=== PATIENT | male | born 1940 | race Caucasian/White ===

== ENCOUNTER 2019-11-13 14:19 | Inpatient (IN) | payer MEDICARE, OTHER ==
[~2019-11-13] VITALS: Ht 162.6 cm; Wt 77.1 kg
[~2019-11-13 14:19] MED LIST: AMLO5TAB4 PO; ATOR20TA PO; CARV25TA2 PO; OMEP20TA5 PO; PRAV20TA4 PO; RAMI5CAP66 PO
--- NOTE | 2019-11-13 14:19 | NUR ---
PT BIBRA FROM HOME C/O ALTERED MENTAL STATUS "UNABLE TO SPEAK TO THE FAMILY" PT IS AAOX2, NOT IN RESPIRATORY DISTRESS, HOOKED TO GLASS BLOWING INSTRUCTOR, KEPT RESTED AND COMFORTABLE. WILL CONTINUE TO MONITOR.
--- NOTE | 2019-11-13 14:37 | NUR ---
IV LINE ESTABLISHED BLOOD DRAWN AND SENT TO LAB.
--- NOTE | 2019-11-13 14:38 | NUR ---
SEEN AND EXAMINED BY DR. AMIN.
--- NOTE | 2019-11-13 14:39 | NUR ---
Patient transported to CT via gurney, accompanied by Weston RN.
[2019-11-13] MEDS ORDERED: IOHEXOL-350 100 ML VIAL IV ONE (14:40)
[2019-11-13] MEDS ORDERED: IV NS 0.9% 250 ML IV ONE ×2 (14:40→14:54)
[2019-11-13] MEDS ORDERED: BUME2TAB7 PO (14:48)
[2019-11-13] MEDS ORDERED: LINA145C PO (14:48)
[2019-11-13] MEDS ORDERED: TAMS-12 PO (14:48)
[2019-11-13] MEDS ORDERED: HYDR-4076 PO (14:48)
[2019-11-13] MEDS ORDERED: OMEP40CA13 PO (14:48)
[2019-11-13] MEDS ORDERED: ATOR40TA PO (14:48)
[2019-11-13] MEDS ORDERED: MEMA1CAP3 PO (14:48)
[2019-11-13] MEDS ORDERED: DOCU250C14 PO (14:48)
[2019-11-13] MEDS ORDERED: WARF-58 PO (14:48)
[2019-11-13] MEDS ORDERED: IOHEXOL-300 100 ML VIAL IV ONE (14:49)
[2019-11-13 14:53] LABS: BASOPHILS # (AUTO) 0.1 /CMM (0.0-0.2); BASOPHILS % (AUTO) 0.5 % (0.0-2.0); EOSINOPHILS % (AUTO) 1.6 % (0.0-6.0); HEMATOCRIT 44 % (39-51); HEMOGLOBIN 13.9 g/dL (13.5-17.5); LYMPHOCYTES # (AUTO) 1.2 /CMM (0.8-4.8); LYMPHOCYTES % (AUTO) 11.2 % (20.0-44.0); MEAN CORPUSCULAR HGB CONC 32 g/dl (31.0-36.0); MEAN CORPUSCULAR VOLUME 79 fL (80-96); MONOCYTES # (AUTO) 1.1 /CMM (0.1-1.30); MONOCYTES % (AUTO) 10.4 % (2.0-12.0); NEUTROPHILS # (AUTO) 8.2 /CMM (1.8-8.9); NEUTROPHILS % (AUTO) 76.3 % (43.0-81.0); PLATELET COUNT (AUTO) 198 /CMM (150-450); WHITE BLOOD COUNT (AUTO) 10.7 K/uL (4.3-11.0)
[2019-11-13 14:56] LABS: CALCIUM, SERUM 8.5 mg/dL (8.5-10.1); CARBON DIOXIDE 27 mmol/L (21-32); CHLORIDE 103 mmol/L (98-107); CREATININE 1.7 mg/dL (0.6-1.3); GLUCOSE 122 mg/dL (74-106); POTASSIUM 3.6 mmol/L (3.5-5.1); SODIUM SERUM 139 mmol/L (136-145); UREA NITROGEN, BLOOD 31 mg/dL (7-18)
--- NOTE | 2019-11-13 15:01 | NUR ---
Patient back to ER Rm [address] via [facility].
[2019-11-13 15:59] LABS: CHOLESTEROL 221 mg/dL (<200); HDL CHOLESTEROL 27 mg/dL (40-60); LDL 155 mg/dL (0-99); TRIGLYCERIDES 159 mg/dL (30-150)
--- NOTE | 2019-11-13 16:39 | NUR ---
panel on-call paged
--- NOTE | 2019-11-13 16:45 | NUR ---
CALLED [facility], PAGED HELEN TRISTAN
[2019-11-13] MEDS ORDERED: IV NS 0.9% 1,000 ML IV ONE (17:00)
[2019-11-13] MEDS ORDERED: ASPIRIN 81 MG TAB.CHEW PO ONE (17:00)
[2019-11-13] MEDS ORDERED: ASPIRIN 300 MG/SUPP.RECT RC ONE ×2 (17:30)
[2019-11-13] MEDS ORDERED: ASPIRIN 325 MG TABLET PO ONE (17:30)
--- NOTE | 2019-11-13 17:50 | NUR ---
REPORT GIVEN TO OGPAL GARZA FOR KRISTINA.
--- NOTE | 2019-11-13 18:28 | NUR ---
RN ADMITTING NOTE Patient arrived on unit via gurney. A/O x1, presents with shallow pursed lip breathing at this time, patient put on 2L NC. Vital signs: T 98.0F BP 123/77 HR 83 SpO2 97% on 2L NC RR 22-24. Tele monitor SR with BBB and PVCs. Patient kept NPO due to confusion and failed swallow eval per BAILING MACHINE OPERATOR Demetri. Bed is in lowest position, side rails x3 in upright position, call light is within reach, fall safety and aspiration precautions enforced. Will endorse to night club manager for admitting process.
[2019-11-13 18:30] VITALS: BP 123/77
[2019-11-13 20:00] VITALS: BP_SYST 120; BP_SYST 135; BP_DIAS 79; BP_DIAS 80
--- NOTE | 2019-11-13 20:00 | NUR ---
ZIG ZAG STITCHER OPENING NOTES RECEIVED PATIENT FROM ER FOR ADMISSION, ALERT AND ORIENTED X 1. BREATHING REGULAR AND UNLABORED ON OXYGEN AT 2L/MIN VIA NASAL CANNULA. RIGHT AC G18 IV LINE INTACT AND PATENT, FLUSHING WELL WITH NO BLEEDING OR S/S OF INFILTRATION NOTED. ATTACHED TO RAIL ENGINEER WITH NSR AT 80bpm. LEFT UPPER CHEST PACEMAKER VISIBLE ON THE SKIN. BODY ASSESSMENT DONE, SEEN WITH SACRAL REDNESS AND PERINEAL WITH OPEN WOUNDS ON POSTERIOR AREA OF THE SCROTUM. PHOTO TAKEN, KEPT IN CHART. NIHSS STROKE SCALE DONE. NO S/S OF PAIN/DISCOMFORT OBSERVED AT THIS TIME. BED LOW AND LOCKED ON SEMI FOWLERS POSITION. CALL LIGHT IN REACH. WILL CONTINUE TO MONITOR.
[2019-11-13 20:16] LABS: BASOPHILS # (AUTO) 0.1 /CMM (0.0-0.2); BASOPHILS % (AUTO) 0.5 % (0.0-2.0); EOSINOPHILS % (AUTO) 2.2 % (0.0-6.0); HEMATOCRIT 41 % (39-51); HEMOGLOBIN 13.2 g/dL (13.5-17.5); LYMPHOCYTES # (AUTO) 1.7 /CMM (0.8-4.8); LYMPHOCYTES % (AUTO) 15.5 % (20.0-44.0); MEAN CORPUSCULAR HGB CONC 32 g/dl (31.0-36.0); MEAN CORPUSCULAR VOLUME 78 fL (80-96); MONOCYTES # (AUTO) 1.2 /CMM (0.1-1.30); MONOCYTES % (AUTO) 10.7 % (2.0-12.0); NEUTROPHILS % (AUTO) 71.1 % (43.0-81.0); PLATELET COUNT (AUTO) 180 /CMM (150-450); RED BLOOD CELL COUNT(AUTO) 5.24 MIL/uL (4.5-6.0); WHITE BLOOD COUNT (AUTO) 11.2 K/uL (4.3-11.0)
[2019-11-13 20:18] LABS: CALCIUM, SERUM 8.1 mg/dL (8.5-10.1); CREATININE 1.3 mg/dL (0.6-1.3); POTASSIUM 3.6 mmol/L (3.5-5.1)
[2019-11-13 20:30] LABS: ALBUMIN 2.6 g/dL (3.4-5.0); THYROID STIMULATING HORMONE 1.247 uIU/mL (0.358-3.74); TOTAL PROTEIN, SERUM 6.6 g/dL (6.4-8.2)
--- NOTE | 2019-11-13 21:00 | NUR ---
PIER RUNNER NOTES NURSING SWALLOW EVALUATION DONE AT BEDSIDE. PATIENT ABLE TO TOLERATE DRINKING 60CC REGULAR/THIN CONSISTENCY LIQUID WITHOUT CHOKING OR COUGHING. ALSO ABLE TO EAT APPLE SAUCE WITHOUT DIFFICULTY. RESPONDING VERBALLY (DELAYED) ON YAKUT LANGUAGE
--- NOTE | 2019-11-13 21:03 | NUR ---
INITIAL ECHOCARDIOGRAM SHOWED EF 20%~. ADVISED RN OF PRELIMINARY FINDING.
[2019-11-13] MEDS ORDERED: BLOOD SUGAR DIAGNOSTIC 1 EACH STRIP IN SCH (22:00)
[2019-11-13] MEDS ORDERED: SIMVASTATIN 40 MG TABLET PO SCH (22:00)
--- NOTE | 2019-11-13 22:00 | NUR ---
ARCHITECT NAVAL NOTES HERNANDEZ CATH INSERTED DRAINING WELL WITH CLOUDY THAIS COLORED URINE. DVT PUMP ON.
[2019-11-13] MEDS: ATORVASTATIN 40 MG TABLET PO SCH (22:37)
[2019-11-13] MEDS: TAMSULOSIN 0.4 MG CAP.SR.24H PO SCH (22:37)
[2019-11-13] MEDS: DONEPEZIL 5 MG TABLET PO SCH (22:37)
[2019-11-13] MEDS: HEPARIN SODIUM, PORCINE 5000 UNITS/1 ML VIAL SQ SCH (22:38)
[2019-11-14] VITALS: BP 127/81
--- NOTE | 2019-11-14 | NUR ---
NETWORKER NOTES ECHO CARDIO AND CAROTID US DONE, RESULTS RELAYED TO PRESTON GUTIERREZ WITH NO FURTHER ORDERS.
[2019-11-14] MEDS: BLOOD SUGAR DIAGNOSTIC 1 EACH STRIP IN SCH ×4 (00:15→16:23)
[2019-11-14 04:07] VITALS: BP 144/85
[2019-11-14] MEDS: HEPARIN SODIUM, PORCINE 5000 UNITS/1 ML VIAL SQ SCH ×3 (05:13→20:15)
--- NOTE | 2019-11-14 06:50 | NUR ---
SUPERVISOR PARTIAL DENTURE DEPARTMENT CLOSING NOTES PATIENT IN BED, ALERT AND ORIENTED X 1. AFEBRILE WITH NO S/S OF DISTRESS OBSERVED. RIGHT AC G18 IV LINE INTACT AND PATENT, FLUSHING WELL. MAINTAINED ON CARDIAC MONITORING WITH NSR WITH PVC's AND BBB AT 87bpm. NO S/S OF PAIN/DISCOMFORT SEEN THE WHOLE SHIFT. BLOOD SUGAR OF 100mg/dl NOTED. BED LOW AND LOCKED ON SEMI FOWLERS POSITION. CALL LIGHT IN REACH. WILL ENDORSE TO MORNING SHIFT FOR KRISTINA.
[2019-11-14] MEDS ORDERED: PANTOPRAZOLE 40 MG TABLET.DR PO SCH (07:30)
[2019-11-14 08:00] VITALS: BP 125/90
--- NOTE | 2019-11-14 08:00 | NUR ---
RN NOTES RECEIVED PATIENT IN THE BED CONFUSED, HARD TO FOLLOW DIRECTION, V/S WNL. NO ACUTE RESPIRATORY DISTRESS, F/C DRAINING DARK YELLOW OUTPUT, IV ACCESS ON RIGHT AC AREA INTACT.ASSIST TURN AND REPOSTION, ADMINISTERED SCHEDULED MEDICATION CRUSHED AND MIXED WITH APPLE SAUCE. PATIENT HAS HARD OF HEARING. SAFETY PRECAUTION MAINTAINED ALL THE TIME.
[2019-11-14 08:16] LABS: BASOPHILS # (AUTO) 0.1 /CMM (0.0-0.2); BASOPHILS % (AUTO) 0.7 % (0.0-2.0); EOSINOPHILS % (AUTO) 3.4 % (0.0-6.0); HEMATOCRIT 42 % (39-51); HEMOGLOBIN 13.2 g/dL (13.5-17.5); LYMPHOCYTES # (AUTO) 1.5 /CMM (0.8-4.8); LYMPHOCYTES % (AUTO) 13.3 % (20.0-44.0); MEAN CORPUSCULAR HGB CONC 32 g/dl (31.0-36.0); MEAN CORPUSCULAR VOLUME 79 fL (80-96); MONOCYTES # (AUTO) 1.2 /CMM (0.1-1.30); NEUTROPHILS # (AUTO) 8.1 /CMM (1.8-8.9); NEUTROPHILS % (AUTO) 71.6 % (43.0-81.0); PLATELET COUNT (AUTO) 192 /CMM (150-450); RED BLOOD CELL COUNT(AUTO) 5.31 MIL/uL (4.5-6.0); WHITE BLOOD COUNT (AUTO) 11.2 K/uL (4.3-11.0)
[2019-11-14 08:26] LABS: CALCIUM, SERUM 8.3 mg/dL (8.5-10.1); POTASSIUM 3.8 mmol/L (3.5-5.1)
[2019-11-14] MEDS ORDERED: AMLODIPINE BESYLATE 5 MG TABLET PO SCH (09:00)
[2019-11-14] MEDS ORDERED: BUMETANIDE (1 MG) 1 MG TABLET PO SCH (09:00)
[2019-11-14] MEDS ORDERED: WARFARIN SODIUM 5 MG TABLET PO SCH (09:00)
[2019-11-14] MEDS ORDERED: RAMIPRIL 5 MG CAPSULE PO SCH (09:00)
--- NOTE | 2019-11-14 09:05 | NUR ---
WOUND CARE CONSULT: PT PRESENTS WITH DEEP RED INTACT DEEP TISSUE INJURY TO SACRAL AREA, RASH WITH OPEN SKIN TO SCROTUM, PRESENT ON ADMISSION. RECOMMENDATIONS MADE FOR SKIN PROTECTION AND WOUND CARE. DISCUSSED WITH NURSING STAFF. IN AGREEMENT WITH PLAN OF CARE. CURRENT SERA SCORE IS 14. MAYR ANGELA NOTED. Addendum: 11/14/19 at 0906 by RADHA VALENZUELA WNDNU Amended: Links added.
[2019-11-14] MEDS ORDERED: Z GUARD REMEDY 2 OZ OINT TP PRN (09:30)
[2019-11-14] MEDS: ASPIRIN EC 81 MG TABLET.DR PO SCH (10:28)
[2019-11-14] MEDS: DOCUSATE SODIUM 250 MG CAPSULE PO SCH ×2 (10:28→16:22)
[2019-11-14] MEDS: MEMANTINE HCL 5 MG TABLET PO SCH ×2 (10:28→16:22)
[2019-11-14] MEDS: hydrALAZINE HCL 25 MG TABLET PO SCH ×2 (10:29→16:20)
[2019-11-14] MEDS: PANTOPRAZOLE 40 MG TABLET.DR PO SCH (10:30)
[2019-11-14] MEDS: Z GUARD REMEDY 2 OZ OINT TP SCH (10:31)
[2019-11-14] MEDS: CARVEDILOL 12.5 MG TABLET PO SCH ×2 (10:32→16:23)
--- NOTE | 2019-11-14 12:30 | NUR ---
RN NOTES BS-148 MG/DL NO COVERAGE, PATIENT CONFUSED, DEMANDED, TRIED TO REMOVE HERNANDEZ CATHETER, AND IV ACCESS, ADMINISTERED SCHEDULED MEDICATION. SAFETY PRECAUTION MAINTAINED ALL THE TIME, PATIENT HARD OF HEARING, ON O2 2L NC, SAFETY PRECAUTION MAINTAINED ALL THE TIME.
--- NOTE | 2019-11-14 15:40 | NUR ---
RAS Consult: rehab services aide consult requested by for stroke protocol. Per MD notes, pt is an 79-year-old male who presented yesterday to the emergency department not able to give any meaningful history with inability to speak. History was basically obtained from his medication list. Patient is also altered with history of dementia. DECORATOR INSPECTOR conducted chart review and consulted with [facility] Emiliano Nunez. Per SACHIN Nunez, pt is confused and unable to participate in meaningful conversation. Pt is Kyrgyz speaking. SACHIN Nunez requested for DECORATOR INSPECTOR to contact pt's granddaughter Ivett at . RAS left a voicemail message with Ivett with a callback number.
[2019-11-14 16:00] VITALS: BP 109/66
--- NOTE | 2019-11-14 16:46 | NUR ---
Table Saw Operator: conducted chart review and was able to speak to the patient's family as he has been confused. Per MD notes, pt is an 79-year-old male who presented yesterday to the emergency department not able to give any meaningful history with inability to speak. Pippa contacted Table Saw Operator and was able to give a brief history but was unable to give all information at the time as her mother Lizzy is the primary contact. Table Saw Operator was able to obtain some information from Lizzy. Patient lives alone at [address] [place] [address] in [place], [place]. Pt's daughter goes to the home to provide IHSS. Patient's daughter reports that the pt receives approximately $915 in SSI only as his source of income. Patient has a walker and cane to assist him, only relies on it for additional support. Patient has a history of high blood pressure and had open heart surgery for a pacemaker in 2018, according to the pt's daughter. Patient has been sleeping well but has had a decrease with his hearing over the last few years and pt's daughter says that the hearing aid has not been of much help. Pt's daughter reports that he is sleeping well and has a routine of waking up at 11am every morning. This past Wednesday, November 10 pt's daughter reports that the pt was confused when she arrived to the home at 12 pm (noon). Pt's daughter does not report any other change. Pt's daughter will call nurse to learn more about pt's diagnosis and any other changes that may have occured. Table Saw Operator remains available to the patient for all needs and will follow-up with this patient when he is alert and orientated. Table Saw Operator will also remain available to family to help provide any resources.
--- NOTE | 2019-11-14 18:30 | NUR ---
rn notes PATIENT HAS NO ACUTE RESPIRATORY DISTRESS, SEEN BY GI. AND NEURO MD'S, ADMINISTERED SCHEDULED MEDICATION. ASSIST TURN AND REPOSITION Q 2 HR. ENDORSED ONCOMING NURSE FOLLOW PLAN OF CARE.
--- NOTE | 2019-11-14 19:30 | NUR ---
MS RN OPENING NOTES RECEIVED PATIENT FROM MORNING SHIFT, ALERT AND ORIENTED X 1. BREATHING REGULAR AND UNLABORED ON OXYGEN AT 2L/MIN VIA NASAL CANNULA. RIGHT AC G18 IV LINE INTACT AND PATENT, FLUSHING WELL WITH NO BLEEDING OR S/S OF INFILTRATION NOTED. NO S/S OF PAIN/DISCOMFORT OBSERVED AT THIS TIME. BED LOW AND LOCKED ON SEMI FOWLERS POSITION. CALL LIGHT IN REACH. WILL CONTINUE TO MONITOR.
[2019-11-14 20:00] VITALS: BP 96/58
[2019-11-14 20:17] VITALS: BP 96/58
[2019-11-14] MEDS: TAMSULOSIN 0.4 MG CAP.SR.24H PO SCH (21:25)
[2019-11-14] MEDS: ATORVASTATIN 40 MG TABLET PO SCH (21:25)
[2019-11-14] MEDS: DONEPEZIL 5 MG TABLET PO SCH (21:25)
[2019-11-15] MEDS: BLOOD SUGAR DIAGNOSTIC 1 EACH STRIP IN SCH ×5 (00:08→23:55)
--- NOTE | 2019-11-15 00:10 | NUR ---
MS RN NOTES BS 122mg/dl, ON INSULIN COVERAGE ORDERED. WILL CONTINUE TO MONITOR.
[2019-11-15] MEDS: HEPARIN SODIUM, PORCINE 5000 UNITS/1 ML VIAL SQ SCH (04:18)
--- NOTE | 2019-11-15 06:40 | NUR ---
MS RN CLOSING NOTES PATIENT IN BED, ALERT AND ORIENTED X 1-2. AFEBRILE WITH NO S/S OF DISTRESS OBSERVED. RIGHT AC G18 IV LINE INTACT AND PATENT, FLUSHING WELL. NO S/S OF PAIN/DISCOMFORT SEEN THE WHOLE SHIFT. BLOOD SUGAR OF 105mg/dl NOTED. BED LOW AND LOCKED ON SEMI FOWLERS POSITION. CALL LIGHT IN REACH. WILL ENDORSE TO MORNING SHIFT FOR KRISTINA.
--- NOTE | 2019-11-15 07:15 | NUR ---
ms rn received on bed, sleeping,not in any form of distress, respirations even and unlabored,no sob noted, lungs are clear,abdomen soft,positive bowel sounds,denies pain at this time,all needs attended.
[2019-11-15 08:00] VITALS: BP 115/70
--- NOTE | 2019-11-15 09:00 | NUR ---
ms rn patient does note want to eat breakfast, will give meds later.
--- NOTE | 2019-11-15 09:59 | NUR ---
Staffing Operations Manager: SW completed PHQ-9 intervention.
--- NOTE | 2019-11-15 10:00 | NUR ---
ms rn was seen by speech therapist, was able to eat w/ assist, all needs attended.
[2019-11-15] MEDS: DOCUSATE SODIUM 250 MG CAPSULE PO SCH ×2 (10:57→17:50)
[2019-11-15] MEDS: MEMANTINE HCL 5 MG TABLET PO SCH ×2 (10:57→17:51)
[2019-11-15] MEDS: PANTOPRAZOLE 40 MG TABLET.DR PO SCH (10:57)
[2019-11-15] MEDS: DONEPEZIL 5 MG TABLET PO SCH (10:58)
[2019-11-15] MEDS: ASPIRIN EC 81 MG TABLET.DR PO SCH (10:58)
[2019-11-15] MEDS: ENOXAPARIN SODIUM 80 MG/0.8 ML DISP.SYRIN SQ SCH ×2 (10:59→22:28)
--- NOTE | 2019-11-15 11:00 | NUR ---
ms rn was seen by pt, bareky stands w/ 2 max assist, bed exercises done.
[2019-11-15] MEDS: hydrALAZINE HCL 25 MG TABLET PO SCH ×2 (11:02→17:51)
[2019-11-15] MEDS: CARVEDILOL 12.5 MG TABLET PO SCH ×2 (11:03→17:51)
--- NOTE | 2019-11-15 11:30 | NUR ---
ms ash bs - 129 - no coverage given.
[2019-11-15 12:01] LABS: CALCIUM, SERUM 8.3 mg/dL (8.5-10.1); CARBON DIOXIDE 26 mmol/L (21-32); CHLORIDE 105 mmol/L (98-107); CREATININE 1.4 mg/dL (0.6-1.3); GLUCOSE 129 mg/dL (74-106); POTASSIUM 3.5 mmol/L (3.5-5.1); SODIUM SERUM 137 mmol/L (136-145); UREA NITROGEN, BLOOD 34 mg/dL (7-18)
[2019-11-15 12:17] LABS: BASOPHILS # (AUTO) 0.1 /CMM (0.0-0.2); BASOPHILS % (AUTO) 0.9 % (0.0-2.0); EOSINOPHILS % (AUTO) 6.7 % (0.0-6.0); HEMATOCRIT 43 % (39-51); HEMOGLOBIN 13.1 g/dL (13.5-17.5); LYMPHOCYTES # (AUTO) 1.5 /CMM (0.8-4.8); LYMPHOCYTES % (AUTO) 17.2 % (20.0-44.0); MEAN CORPUSCULAR HGB CONC 31 g/dl (31.0-36.0); MEAN CORPUSCULAR VOLUME 81 fL (80-96); MONOCYTES # (AUTO) 0.6 /CMM (0.1-1.30); MONOCYTES % (AUTO) 6.8 % (2.0-12.0); NEUTROPHILS % (AUTO) 68.4 % (43.0-81.0); PLATELET COUNT (AUTO) 191 /CMM (150-450); RED BLOOD CELL COUNT(AUTO) 5.22 MIL/uL (4.5-6.0); WHITE BLOOD COUNT (AUTO) 8.8 K/uL (4.3-11.0)
[2019-11-15 16:00] VITALS: BP 129/68
[2019-11-15] MEDS ORDERED: WARFARIN SODIUM 5 MG TABLET PO SCH (17:00)
[2019-11-15] MEDS: ENSURE ENLIVE CHOC 237 ML CAN PO SCH (17:00)
--- NOTE | 2019-11-15 17:00 | NUR ---
ms rn grand daughter fed patient w/ good appetite.
[2019-11-15] MEDS: Z GUARD REMEDY 2 OZ OINT TP SCH (17:52)
--- NOTE | 2019-11-15 18:00 | NUR ---
ms rn patient refused bs check,will monitor patient.
--- NOTE | 2019-11-15 19:04 | NUR ---
ms rn on bed, no distress noted.
--- NOTE | 2019-11-15 19:56 | NUR ---
MS/RN OPENING NOTE Patient awake in bed, A/O x1-2. [place] Islander speaking only. Breathing even, clear, unlabored. No signs of acute distress or SOB. Nasal cannula 2l/min. Patient denies pain at this time. Pulses 2+. No JVD. Skin warm, pink, dry appropriate for ethnicity. Redness noted in sacral region. IV site RAC 18g saline lock, patent and intact. Bed in low position, wheels locked, side rails up x2, call light within reach.
[2019-11-15 20:00] VITALS: BP 120/69
[2019-11-15] MEDS: TAMSULOSIN 0.4 MG CAP.SR.24H PO SCH (22:29)
[2019-11-15] MEDS: ATORVASTATIN 40 MG TABLET PO SCH (22:29)
[2019-11-16 00:25] VITALS: BP 120/69
--- NOTE | 2019-11-16 04:37 | NUR ---
MS/RN NOTE DC IV to left forearm d/t patient pulling out. New IV inserted to LFA 22g, saline lock. No signs of redness or infiltration. Will continue to monitor.
--- NOTE | 2019-11-16 05:57 | NUR ---
MS/RN NOTE Patient refused Accu-chek at this time. Will continue to monitor.
[2019-11-16] MEDS: BLOOD SUGAR DIAGNOSTIC 1 EACH STRIP IN SCH ×3 (05:58→18:00)
[2019-11-16] MEDS: PANTOPRAZOLE 40 MG TABLET.DR PO SCH (06:52)
--- NOTE | 2019-11-16 07:24 | NUR ---
MS/RN CLOSING NOTE Patient asleep in bed, A/O x1-2. Tajik speaking only. Breathing even, clear, unlabored. No signs of acute distress or SOB. Nasal cannula 2l/min, O2 saturation 98%. No JVD. Skin warm, pink, dry appropriate for ethnicity. Redness noted in sacral region. IV site RFA 18g saline lock, patent and intact. Bed in low position, wheels locked, side rails up x2, call light within reach.
--- NOTE | 2019-11-16 07:30 | NUR ---
MS/RN NOTE THE PATIENT IS RECEIVED IN BED. THE PATIENT IS ALERT AND ORIENTED TO SELF. DIRECTION AND REORIENTATION PROVIDED. PATIENT IS HARD OF HEARING. RECEIVING OXYGEN AT 2L/MIN VIA NASAL CANNULA. RESPIRATION REGULAR AND UNLABORED. DENIES PAIN. DENIES SOB. RAC G 18 PATENT AND SALINE LOCKED. HERNANDEZ CATH PRESENT. NO BLADDER DISTENSION NOTED. BED LOW AND LOCKED. SIDE RAILS UP X3. CALL LIGHT WITHIN REACH. WILL CONTINUE TO MONITOR.
[2019-11-16 08:00] VITALS: BP 129/74
[2019-11-16] MEDS: DOCUSATE SODIUM 250 MG CAPSULE PO SCH ×2 (09:05→17:45)
[2019-11-16] MEDS: ENOXAPARIN SODIUM 80 MG/0.8 ML DISP.SYRIN SQ SCH ×2 (09:05→21:25)
[2019-11-16] MEDS: MEMANTINE HCL 5 MG TABLET PO SCH ×2 (09:05→17:45)
[2019-11-16] MEDS: ASPIRIN EC 81 MG TABLET.DR PO SCH (09:06)
[2019-11-16] MEDS: hydrALAZINE HCL 25 MG TABLET PO SCH ×2 (09:06→17:45)
[2019-11-16] MEDS: CARVEDILOL 12.5 MG TABLET PO SCH ×2 (09:06→17:45)
[2019-11-16] MEDS: ENSURE ENLIVE CHOC 237 ML CAN PO SCH ×3 (09:07→17:00)
[2019-11-16] MEDS: Z GUARD REMEDY 2 OZ OINT TP SCH (09:16)
[2019-11-16 12:43] LABS: BASOPHILS # (AUTO) 0.1 /CMM (0.0-0.2); BASOPHILS % (AUTO) 0.7 % (0.0-2.0); EOSINOPHILS % (AUTO) 6.3 % (0.0-6.0); HEMATOCRIT 41 % (39-51); HEMOGLOBIN 12.9 g/dL (13.5-17.5); LYMPHOCYTES # (AUTO) 1.2 /CMM (0.8-4.8); LYMPHOCYTES % (AUTO) 15.1 % (20.0-44.0); MEAN CORPUSCULAR HGB CONC 31 g/dl (31.0-36.0); MEAN CORPUSCULAR VOLUME 80 fL (80-96); MONOCYTES # (AUTO) 0.7 /CMM (0.1-1.30); NEUTROPHILS # (AUTO) 5.3 /CMM (1.8-8.9); NEUTROPHILS % (AUTO) 68.9 % (43.0-81.0); PLATELET COUNT (AUTO) 224 /CMM (150-450); RED BLOOD CELL COUNT(AUTO) 5.14 MIL/uL (4.5-6.0); WHITE BLOOD COUNT (AUTO) 7.7 K/uL (4.3-11.0)
[2019-11-16 14:06] LABS: CREATININE 1.3 mg/dL (0.6-1.3); POTASSIUM 3.6 mmol/L (3.5-5.1)
[2019-11-16 14:11] LABS: CALCIUM, SERUM 8.2 mg/dL (8.5-10.1)
[2019-11-16 16:00] VITALS: BP 138/74
[2019-11-16] MEDS ORDERED: WARFARIN SODIUM 7.5 MG TABLET PO SCH (17:00)
--- NOTE | 2019-11-16 18:49 | NUR ---
MS/RN THE PATIENT IS ALERT AND ORIENTED TO SELF. DIRECTION AND REORIENTATION PROVIDED. PATIENT IS HARD OF HEARING. RECEIVING OXYGEN AT 2L/MIN VIA NASAL CANNULA. RESPIRATION REGULAR AND UNLABORED. DENIES PAIN. DENIES SOB. RAC G 18 PATENT AND SALINE LOCKED. HERNANDEZ CATH PRESENT. NO BLADDER DISTENSION NOTED. BED LOW AND LOCKED. SIDE RAILS UP X3. CALL LIGHT WITHIN REACH. WILL CONTINUE TO MONITOR.
[2019-11-16] MEDS: WARFARIN SODIUM 2.5 MG TABLET PO SCH (18:52)
--- NOTE | 2019-11-16 19:43 | NUR ---
MS RN OPENING NOTE: Patient in bed sleeping comfortably but easily arousable. Patient shows no signs of pain or discomfort at the moment. Patient on nasal canula with 2L oxygen. Patient is breathing well. No signs of SOB, breathing even and unlabored. Noted IV access on right AC, 18 g. Flushes well, patent, no redness, or infiltration. Noted Holt catheter, patent, draining clear yellow urine. Safety precaution is in place, bed is in lowest position, bed is locked, side rails x2 are up, alarm is on, and call light is within reach. Will continue to monitor.
[2019-11-16 20:00] VITALS: BP 105/57
[2019-11-16 20:33] VITALS: BP 105/57
[2019-11-16] MEDS: ATORVASTATIN 40 MG TABLET PO SCH (21:21)
[2019-11-16] MEDS: DONEPEZIL 5 MG TABLET PO SCH (21:21)
[2019-11-16] MEDS: TAMSULOSIN 0.4 MG CAP.SR.24H PO SCH (21:21)
[2019-11-17] MEDS: BLOOD SUGAR DIAGNOSTIC 1 EACH STRIP IN SCH ×4 (00:06→17:57)
[2019-11-17] MEDS: PANTOPRAZOLE 40 MG TABLET.DR PO SCH (06:37)
--- NOTE | 2019-11-17 07:13 | NUR ---
MS RN CLOSING NOTE: Patient in bed awake and alert. Patient is Anguillan speaking only. On 2L nasal canula and breathing well. No SOB, no distress. Breathing equal and unlabored. IV access on left forearm 22g. Patent, intact, no redness, or infiltration. Safety precaution in place. Bed in the lowest level, brakes are on, side rails x2 are up, alarm is on, and call light is within reach. Will endorse to next shift.
--- NOTE | 2019-11-17 07:30 | NUR ---
MS/RN NOTE THE PATIENT IS RECEIVED IN BED. THE PATIENT IS ALERT AND ORIENTED TO SELF. DIRECTION AND REORIENTATION PROVIDED. PATIENT IS HARD OF HEARING. RECEIVING OXYGEN AT 2L/MIN VIA NASAL CANNULA. RESPIRATION REGULAR AND UNLABORED. DENIES PAIN. DENIES SOB. HERNANDEZ CATH PRESENT. NO BLADDER DISTENSION NOTED. BED LOW AND LOCKED. SIDE RAILS UP X3. CALL LIGHT WITHIN REACH. WILL CONTINUE TO MONITOR
[2019-11-17 08:00] VITALS: BP 123/74
[2019-11-17] MEDS: ENSURE ENLIVE CHOC 237 ML CAN PO SCH ×2 (08:00→12:00)
[2019-11-17] MEDS: DOCUSATE SODIUM 250 MG CAPSULE PO SCH ×2 (08:48→17:53)
[2019-11-17] MEDS: ASPIRIN EC 81 MG TABLET.DR PO SCH (08:48)
[2019-11-17] MEDS: hydrALAZINE HCL 25 MG TABLET PO SCH ×2 (08:49→17:53)
[2019-11-17] MEDS: MEMANTINE HCL 5 MG TABLET PO SCH ×2 (08:49→17:53)
[2019-11-17] MEDS: CARVEDILOL 12.5 MG TABLET PO SCH ×2 (08:50→17:54)
[2019-11-17] MEDS: Z GUARD REMEDY 2 OZ OINT TP SCH (08:51)
[2019-11-17] MEDS: ENOXAPARIN SODIUM 80 MG/0.8 ML DISP.SYRIN SQ SCH ×2 (11:24→21:12)
[2019-11-17] MEDS ORDERED: ASPI-1420 PO (14:32)
[2019-11-17] MEDS ORDERED: Warfarin Sodium PO (14:32)
[2019-11-17] MEDS ORDERED: DONE5TAB7 PO (14:32)
[2019-11-17] MEDS ORDERED: ENOX80DI SQ (14:32)
[2019-11-17] MEDS ORDERED: LACT-54 PO (14:32)
[2019-11-17] MEDS ORDERED: LEVO500T23 PO (14:37)
[2019-11-17] MEDS: ENSURE ENLIVE 237 ML LIQUID (VANILLA) PO SCH (17:00)
[2019-11-17] MEDS: WARFARIN SODIUM 2.5 MG TABLET PO SCH (17:57)
--- NOTE | 2019-11-17 19:00 | NUR ---
RN MS OPENING NOTES RECEIVED PATIENT IN BED AWAKE ALERT AND ORIENTED X 1-2, ON 2 L VIA NC TOLERATING WELL, RESPIRATIONS EVEN AND UNLABORED WITH EQUAL RISE AND FALL OF CHEST, HOB ELEVATED AT 40 DEGREES ORDERED, HERNANDEZ CATHETER INTACT AND DRAINING WELL, URINE YELLOW, F/C PROPERLY ALIGNED, LEFT FA #22 G INTACT AND PATENT, NO REDNESS, NO INFILTRATION PRESENT, PATIENT REPOSITIONED, HEELS OFFLOADED, APPEARS COMFORTABLE AT THIS TIME, NO FACIAL GRIMACING, PRESENT, PATIENT REPOSITIONED ON SIDE TO OFFLOAD SACRAL AND SCROTUM AREA, SAFETY PRECAUTIONS RENDERED, LOW BED AND LOCKED, BED ALARM IN PLACE, SCDS INTACT, CALL LIGHT KEPT WITHIN REACH, REMAINS COMFORTABLE AT THIS TIME , WILL CONTINUE TO ADDRESS NEEDS.
[2019-11-17 20:00] VITALS: BP 141/78
[2019-11-17 20:02] VITALS: BP 141/78
[2019-11-17] MEDS: ATORVASTATIN 40 MG TABLET PO SCH (21:13)
[2019-11-17] MEDS: DONEPEZIL 5 MG TABLET PO SCH (21:13)
[2019-11-17] MEDS: TAMSULOSIN 0.4 MG CAP.SR.24H PO SCH (21:13)
[2019-11-18] MEDS: BLOOD SUGAR DIAGNOSTIC 1 EACH STRIP IN SCH ×3 (00:18→12:28)
--- NOTE | 2019-11-18 00:19 | NUR ---
accucheck 136
--- NOTE | 2019-11-18 05:33 | NUR ---
accu check 90
--- NOTE | 2019-11-18 06:21 | NUR ---
RN MS CLOSING NOTES RECEIVED PATIENT IN BED AWAKE ALERT AND ORIENTED X 1-2, ON 2 L VIA NC TOLERATING WELL, RESPIRATIONS EVEN AND UNLABORED WITH EQUAL RISE AND FALL OF CHEST, HOB ELEVATED AT 40 DEGREES ORDERED, HERNANDEZ CATHETER INTACT AND DRAINING WELL TOTAL OUTPUT 600ML, URINE YELLOW, F/C PROPERLY ALIGNED, LEFT FA #22 G INTACT AND PATENT, NO REDNESS, NO INFILTRATION PRESENT, PATIENT REPOSITIONED, HEELS OFFLOADED, SACRAL NOTED WITH REDNESS WOUND CARE DONE ORDERED, SCROTAL NOTED WITH OPEN SKIN WOUND CARE DONE ORDERED AND OFFLOADED, PICTURES TAKEN PLACE IN CHART, APPEARS COMFORTABLE AT THIS TIME, NO FACIAL GRIMACING, PRESENT, PATIENT REPOSITIONED ON SIDES TO OFFLOAD SACRAL AND SCROTUM AREA, FLUIDS OFFERED THROUGHOUT SHIFT, SAFETY PRECAUTIONS RENDERED, LOW BED AND LOCKED, BED ALARM IN PLACE, SCDS INTACT, CALL LIGHT KEPT WITHIN REACH, REMAINS COMFORTABLE AT THIS TIME , WILL CONTINUE TO ADDRESS NEEDS AND ENDORSE TO NEXT SHIFT, ALL DUE MEDICATIONS GIVEN NO ADVERSE REACTIONS. HEAD OF BED ELEVATED ORDERED.
[2019-11-18 08:00] VITALS: BP 129/76
[2019-11-18] MEDS: ASPIRIN EC 81 MG TABLET.DR PO SCH (08:29)
[2019-11-18] MEDS: MEMANTINE HCL 5 MG TABLET PO SCH (08:29)
[2019-11-18] MEDS: PANTOPRAZOLE 40 MG TABLET.DR PO SCH (08:29)
[2019-11-18] MEDS: CARVEDILOL 12.5 MG TABLET PO SCH (08:29)
[2019-11-18] MEDS: DOCUSATE SODIUM 250 MG CAPSULE PO SCH (08:29)
[2019-11-18 08:30] VITALS: BP 129/76
[2019-11-18] MEDS: hydrALAZINE HCL 25 MG TABLET PO SCH (08:30)
[2019-11-18] MEDS: ENSURE ENLIVE 237 ML LIQUID (VANILLA) PO SCH ×2 (08:30→12:28)
[2019-11-18] MEDS: ENOXAPARIN SODIUM 80 MG/0.8 ML DISP.SYRIN SQ SCH (08:34)
[2019-11-18] MEDS: Z GUARD REMEDY 2 OZ OINT TP SCH (08:35)
[2019-11-18] MEDS ORDERED: Warfarin Sodium PO (12:26)
--- NOTE | 2019-11-18 14:30 | NUR ---
Report called to [facility] . Patient will go to [address]
--- NOTE | 2019-11-18 15:40 | NUR ---
Patient cleared for d/c to SNF by MD. Patient awake , unable to verbalized needs, disoriented. D/C instruction and teaching provided to daughter via phone and she verbalized understanding. Patient leaving with F/C per MD. D/c pictures taken last night and placed in the chart. Breathing unlabored and even on 2L O2 via nasal canula. VS are stable and within baseline, afebrile. D/C papers provided , belongings taken home by granddaughter. All needs attended prior discharge. IV line removed, ID wrist band removed. PAtient safely picket up by ambulance.
[2019-11-18] MEDS ORDERED: WARFARIN SODIUM 5 MG TABLET PO SCH (17:00)
== END 2019-11-18 15:40 | DRG 64 ==
LOC: ER 14:33 → TELE 18:04 → MED 11-14 11:55 → MEDSG2 11-17 10:48
PROVIDERS: ADMIT Nurse Practitioner Acute Care; ATTEND Registered Nurse
DX: I63.9 Cerebral infarction, unspecified (principal); G93.41 Metabolic encephalopathy; I21.4 Non-ST elevation (NSTEMI) myocardial infarction; N17.0 Acute kidney failure with tubular necrosis; J69.0 Pneumonitis due to inhalation of food and vomit; D68.69 Other thrombophilia; J98.11 Atelectasis; E86.0 Dehydration; I25.10 Atherosclerotic heart disease of native coronary artery without angina pectoris; N40.0 Benign prostatic hyperplasia without lower urinary tract symptoms; R47.01 Aphasia; I11.0 Hypertensive heart disease with heart failure; I50.9 Heart failure, unspecified; E78.5 Hyperlipidemia, unspecified; F01.50 Vascular dementia, unspecified severity, without behavioral disturbance, psychotic disturbance, mood disturbance, and anxiety; K21.9 Gastro-esophageal reflux disease without esophagitis; K76.0 Fatty (change of) liver, not elsewhere classified; K80.70 Calculus of gallbladder and bile duct without cholecystitis without obstruction; Z95.1 Presence of aortocoronary bypass graft; Z79.01 Long term (current) use of anticoagulants; R29.711 NIHSS score 11; R40.2142 Coma scale, eyes open, spontaneous, at arrival to emergency department; R40.2362 Coma scale, best motor response, obeys commands, at arrival to emergency department; R40.2252 Coma scale, best verbal response, oriented, at arrival to emergency department; R91.1 Solitary pulmonary nodule; Z95.810 Presence of automatic (implantable) cardiac defibrillator; I67.9 Cerebrovascular disease, unspecified; Z86.79 Personal history of other diseases of the circulatory system; I69.311 Memory deficit following cerebral infarction
CPT/HCPCS: 36415; 70450-TC; 70496-TC; 70498-TC; 71045-TC; 80048-TC; 80053-TC; 80061-TC; 82962-TC; 83880; 84443-TC; 84484-TC; 85025-TC; 85610-TC; 85652-TC; 85730-TC; 87081-TC; 92526; 92611-TC; 93307-TC; 93880-TC; 97110-TC; 97116-TC; 97530-TC; G0378; J1644; J1650; J7050; Q9967

== ENCOUNTER 2020-05-05 23:19 | Inpatient (IN) | payer MEDICARE, OTHER ==
[~2020-05-05] VITALS: Ht 157.5 cm; Wt 74.8 kg
[~2020-05-05 23:19] MED LIST changes: +ASPI-1420 PO; -ATOR20TA PO; +ATOR40TA PO; +BUME2TAB7 PO; +DOCU250C14 PO; +DONE5TAB7 PO; +ENOX80DI SQ; +HYDR-4076 PO; +LACT-54 PO; +LEVO500T23 PO; +LINA145C PO; +MEMA1CAP3 PO; -OMEP20TA5 PO; +OMEP40CA13 PO; -PRAV20TA4 PO; +TAMS-12 PO; +Warfarin Sodium PO
--- NOTE | 2020-05-05 23:45 | NUR ---
BIB DAUGHTER FOR C/O ABDOMINAL PAIN AND DARK URINE AND STOOL X 1 DAY. PT NON MABULATORY, WAS ASSISTED TO BED 6 ER. NON VERBAL DUE TO DEMENTIA. PLACED ON A MONITOR,. VSS. WILL CONT TO MONITOR ,
[2020-05-06] MEDS ORDERED: IV NS 0.9% 1,000 ML BAG IV ONE
[2020-05-06 00:05] LABS: BASOPHILS % (AUTO) 0.6 % (0.0-2.0); EOSINOPHILS % (AUTO) 3.2 % (0.0-6.0); HEMATOCRIT 44 % (39-51); HEMOGLOBIN 14.2 g/dL (13.5-17.5); LYMPHOCYTES % (AUTO) 27.3 % (20.0-44.0); MEAN CORPUSCULAR HGB CONC 33 g/dl (31.0-36.0); MEAN CORPUSCULAR VOLUME 88 fL (80-96); MONOCYTES # (AUTO) 0.8 /CMM (0.1-1.30); MONOCYTES % (AUTO) 10.5 % (2.0-12.0); NEUTROPHILS # (AUTO) 4.3 /CMM (1.8-8.9); NEUTROPHILS % (AUTO) 58.4 % (43.0-81.0); PLATELET COUNT (AUTO) 252 /CMM (150-450); RED BLOOD CELL COUNT(AUTO) 4.94 MIL/uL (4.5-6.0); WHITE BLOOD COUNT (AUTO) 7.3 K/uL (4.3-11.0)
[2020-05-06 00:17] LABS: CALCIUM, SERUM 8.9 mg/dL (8.5-10.1); CARBON DIOXIDE 29 mmol/L (21-32); CHLORIDE 105 mmol/L (98-107); CREATININE 1.4 mg/dL (0.6-1.3); GLUCOSE 118 mg/dL (74-106); POTASSIUM 3.7 mmol/L (3.5-5.1); SODIUM SERUM 140 mmol/L (136-145); UREA NITROGEN, BLOOD 30 mg/dL (7-18)
--- NOTE | 2020-05-06 00:20 | NUR ---
BROUGHT BY RADIOLOGY TO CT
--- NOTE | 2020-05-06 00:24 | NUR ---
CALLED LAB REGARDING COVID SWAB
[2020-05-06 00:32] LABS: ALANINE AMINOTRANSFERASE 23 U/L (12-78); ALBUMIN 2.7 g/dL (3.4-5.0); ALKALINE PHOSPHATASE 158 U/L (46-116); ASPARTATE AMINOTRANSFERASE 38 U/L (15-37); BILIRUBIN,DIRECT 0.2 mg/dL (0.0-0.2); BILIRUBIN,TOTAL 0.6 mg/dL (0.2-1.0); LIPASE 121 U/L (73-393); TOTAL PROTEIN, SERUM 7.5 g/dL (6.4-8.2)
--- NOTE | 2020-05-06 00:37 | NUR ---
KAILEYID SWABBED, SENT TO LAB.
--- NOTE | 2020-05-06 00:57 | NUR ---
. PT WAS CATHETERIZED W/ 550ML OF BROWN COLOR URINE W/ SEDIMENTS. URINE COLLECTED AND SENT TO LAB
[2020-05-06] MEDS ORDERED: MORPHINE SULFATE INJ 2 MG/ML DISP.SYRIN IV ONE (01:00)
[2020-05-06 01:15] LABS: BILIRUBIN,URINE SMALL (NEGATIVE); COLOR,URINE AMBER (YELLOW); LEUKOCYTE ESTERASE ,URINE Negative (NEGATIVE); NITRITE, URINE Negative (NEGATIVE); PH,URINE 5.5 (5.0-8.0); PROTEIN,URINE 100 mg/dl (NEGATIVE); UGLUCOSE Negative (NEGATIVE); UROBILINOGEN,URINE 0.2 EU/dL (0.2)
--- NOTE | 2020-05-06 01:25 | NUR ---
ATTEMPTED TO CONTACT DR. BOSS REGARDING ADMISSION. PER ANSWERING SERVICE, PAGE EPIC.
[2020-05-06] MEDS ORDERED: MAG HYDROX/AL HYDROX/SIMETH 30 ML UDC PO PRN (02:00)
[2020-05-06] MEDS ORDERED: Z GUARD REMEDY 2 OZ OINT TP PRN (02:00)
[2020-05-06] MEDS ORDERED: ZOLPIDEM TARTRATE 5 MG TABLET PO PRN (02:00)
[2020-05-06] MEDS ORDERED: ACETAMINOPHEN 325 MG TABLET PO PRN (02:00)
[2020-05-06] MEDS ORDERED: MAGNESIUM HYDROXIDE 30 ML UDC PO PRN (02:00)
[2020-05-06] MEDS ORDERED: ONDANSETRON HCL/PF 4 MG/2 ML VIAL IVP PRN (02:00)
[2020-05-06] MEDS ORDERED: HYDROCODONE/APAP 5/325MG TABLET PO PRN (02:00)
[2020-05-06 02:22] LABS: RBC,URINE TOO NUMEROUS TO COUN /HPF (0-2); WBC,URINE 0-2 /HPF (0-3)
[2020-05-06 02:23] LABS: BACTERIA,URINE Few /HPF (None Seen); SQUAMOUS EPITHELIAL CELL,UR Few /HPF (None Seen); URINE AMORPHOUS URATE Many /HPF (None Seen)
[2020-05-06 06:01] LABS: BASOPHILS # (AUTO) 0.1 /CMM (0.0-0.2); BASOPHILS % (AUTO) 0.7 % (0.0-2.0); HEMATOCRIT 41 % (39-51); HEMOGLOBIN 13.3 g/dL (13.5-17.5); LYMPHOCYTES # (AUTO) 1.8 /CMM (0.8-4.8); LYMPHOCYTES % (AUTO) 23.8 % (20.0-44.0); MEAN CORPUSCULAR HGB CONC 32 g/dl (31.0-36.0); MEAN CORPUSCULAR VOLUME 88 fL (80-96); MONOCYTES # (AUTO) 0.9 /CMM (0.1-1.30); MONOCYTES % (AUTO) 11.8 % (2.0-12.0); NEUTROPHILS # (AUTO) 4.5 /CMM (1.8-8.9); NEUTROPHILS % (AUTO) 59.7 % (43.0-81.0); PLATELET COUNT (AUTO) 235 /CMM (150-450); RED BLOOD CELL COUNT(AUTO) 4.68 MIL/uL (4.5-6.0); WHITE BLOOD COUNT (AUTO) 7.5 K/uL (4.3-11.0)
[2020-05-06] MEDS: PANTOPRAZOLE 40 MG TABLET.DR PO SCH (07:30)
[2020-05-06] MEDS ORDERED: PANTOPRAZOLE 40 MG TABLET.DR PO ONE (07:59)
[2020-05-06] MEDS ORDERED: ASPIRIN EC 81 MG TABLET.DR PO ONE (07:59)
[2020-05-06] MEDS ORDERED: BUMETANIDE (1 MG) 1 MG TABLET ONE (07:59)
[2020-05-06] MEDS ORDERED: CARVEDILOL 12.5 MG TABLET ONE (08:00)
[2020-05-06] MEDS: ENSURE ENLIVE CHOC 237 ML CAN PO SCH ×3 (08:00→17:33)
[2020-05-06] MEDS ORDERED: AMLODIPINE BESYLATE 5 MG TABLET ONE (08:00)
[2020-05-06] MEDS ORDERED: WARF3TAB59 PO (08:44)
[2020-05-06] MEDS ORDERED: ACET-2605 PO (08:44)
[2020-05-06] MEDS ORDERED: PRED5TAB PO (08:44)
[2020-05-06] MEDS ORDERED: ESCI10TA PO (08:44)
[2020-05-06] MEDS ORDERED: LORA-259 PO (08:44)
[2020-05-06] MEDS ORDERED: LISI10TA29 PO (08:44)
[2020-05-06] MEDS ORDERED: MEMA10TA PO (08:44)
[2020-05-06] MEDS ORDERED: ZINC1CAP2 PO (08:44)
[2020-05-06] MEDS ORDERED: FURO-145 PO (08:44)
[2020-05-06] MEDS ORDERED: ASCO-352 PO (08:44)
[2020-05-06] MEDS ORDERED: DICL100G34 TP (08:44)
[2020-05-06] MEDS ORDERED: ERGO500014 PO (08:44)
[2020-05-06] MEDS ORDERED: PANT40TA2 PO (08:44)
[2020-05-06] MEDS ORDERED: QUET25TA PO (08:44)
[2020-05-06] MEDS ORDERED: RAMIPRIL 5 MG CAPSULE PO SCH (09:00)
[2020-05-06] MEDS ORDERED: CARVEDILOL 12.5 MG TABLET PO SCH (09:00)
[2020-05-06] MEDS ORDERED: Linaclotide (Linzess) 145 MCG PO SCH (09:00)
[2020-05-06] MEDS ORDERED: LEVOFLOXACIN (500MG) 500 MG TABLET PO SCH (09:00)
[2020-05-06] MEDS ORDERED: Medication Not On Formulary EA (Memantine HCl/Donepezil HCl (Namzaric 28 mg-10 mg Capsul PO SCH (09:00)
[2020-05-06] MEDS ORDERED: BUMETANIDE (1 MG) 1 MG TABLET PO SCH (09:00)
[2020-05-06] MEDS ORDERED: AMLODIPINE BESYLATE 5 MG TABLET PO SCH (09:00)
[2020-05-06] MEDS: hydrALAZINE HCL 25 MG TABLET PO SCH ×2 (09:20→17:00)
[2020-05-06] MEDS: DOCUSATE SODIUM 250 MG CAPSULE PO SCH ×2 (09:21→17:00)
[2020-05-06] MEDS: CARVEDILOL 12.5 MG TABLET PO SCH ×2 (09:21→21:59)
[2020-05-06] MEDS: ASPIRIN EC 81 MG TABLET.DR PO SCH (09:21)
[2020-05-06] MEDS: AMLODIPINE BESYLATE 5 MG TABLET PO SCH (09:21)
[2020-05-06 10:50] LABS: CALCIUM, SERUM 8.3 mg/dL (8.5-10.1); CREATININE 1.2 mg/dL (0.6-1.3); PHOSPHORUS 3.2 mg/dL (2.5-4.9); POTASSIUM 3.8 mmol/L (3.5-5.1)
[2020-05-06] MEDS: WARFARIN SODIUM 5 MG TABLET PO SCH (17:00)
--- NOTE | 2020-05-06 17:06 | NUR ---
wheeled patient via gurney accompanied by RN and emt in no distress, RN at bedside to assume care.
--- NOTE | 2020-05-06 17:06 | NUR ---
GUEST SERVICE SUPERVISOR ADMITTING NOTE RECEIVED ADMISSION FROM ER. PATIENT IS NON-VERBAL BUT IN MEDICALLY STABLE CONDITION. ON ROOM AIR. VS WNL: BP 141/81 TEMP: 97.5 O2 97%. SAFETY PRECAUTIONS IN PLACE; BED IN LOW POSITION AND LOCKED, RAILS UP X2, CALL LIGHT WITHIN REACH. WILL CONTINUE TO MONITOR PATIENT.
--- NOTE | 2020-05-06 18:33 | NUR ---
FLOAT OPERATOR NOTES PATIENT REFUSED HIS 1700 MEDS. KEEPING HIS MOUTH CLOSED AND DOES NOT WANT TO OPEN IT.
--- NOTE | 2020-05-06 19:28 | NUR ---
LOW VOLTAGE ELECTRICIAN CLOSING NOTES PATIENT REST COMFORTABLY IN BED. NON-VERBAL, ON ROOM AIR SATURATING WELL. PATIENT CLEAN AND DRY. SAFETY PRECAUTIONS IN PLACE; BED IN LOW POSITION AND LOCKED, RAILS UP X2, CALL LIGHT WITHIN REACH. WILL ENDORSE TO PRETZEL COOKER NURSE.
[2020-05-06 20:00] VITALS: BP 124/79
[2020-05-06] MEDS: TAMSULOSIN 0.4 MG CAP.SR.24H PO SCH (21:59)
[2020-05-06] MEDS: DONEPEZIL 5 MG TABLET PO SCH (22:00)
[2020-05-06] MEDS ORDERED: ATORVASTATIN 40 MG TABLET PO SCH (22:00)
--- NOTE | 2020-05-06 23:43 | NUR ---
patient removed iv. patient removed iv left ac 18 gauge. no s/s of complicateions infltrations or significant blood loss. catheter found and intact. dressing applied.
[2020-05-07] VITALS: BP 100/62
[2020-05-07 04:00] VITALS: BP 149/67
[2020-05-07 07:05] LABS: BASOPHILS % (AUTO) 0.6 % (0.0-2.0); EOSINOPHILS % (AUTO) 5.3 % (0.0-6.0); HEMATOCRIT 45 % (39-51); HEMOGLOBIN 14.3 g/dL (13.5-17.5); LYMPHOCYTES # (AUTO) 1.8 /CMM (0.8-4.8); LYMPHOCYTES % (AUTO) 24.3 % (20.0-44.0); MEAN CORPUSCULAR HGB CONC 32 g/dl (31.0-36.0); MEAN CORPUSCULAR VOLUME 89 fL (80-96); MONOCYTES # (AUTO) 0.8 /CMM (0.1-1.30); MONOCYTES % (AUTO) 10.3 % (2.0-12.0); NEUTROPHILS # (AUTO) 4.5 /CMM (1.8-8.9); NEUTROPHILS % (AUTO) 59.5 % (43.0-81.0); PLATELET COUNT (AUTO) 272 /CMM (150-450); RED BLOOD CELL COUNT(AUTO) 5.01 MIL/uL (4.5-6.0); WHITE BLOOD COUNT (AUTO) 7.6 K/uL (4.3-11.0)
--- NOTE | 2020-05-07 07:30 | NUR ---
RN MS NOTES PT IN BED, EASY TO AROUSE, ALERT TO SELF, NON VERBAL, NO SIGN OF PAIN OR DISTRESS, KEPT WARM AND COMFORTABLE IN BED, CALL LIGHT WITHIN REACH.
[2020-05-07 08:14] VITALS: BP 142/99
[2020-05-07 08:18] LABS: ALANINE AMINOTRANSFERASE 24 U/L (12-78); ALBUMIN 2.7 g/dL (3.4-5.0); ALKALINE PHOSPHATASE 158 U/L (46-116); ASPARTATE AMINOTRANSFERASE 45 U/L (15-37); BILIRUBIN,TOTAL 0.5 mg/dL (0.2-1.0); CARBON DIOXIDE 30 mmol/L (21-32); CHLORIDE 107 mmol/L (98-107); CREATINE KINASE, TOTAL 170 U/L (39-308); CREATININE 1.4 mg/dL (0.6-1.3); GLUCOSE 97 mg/dL (74-106); MAGNESIUM 2.4 mg/dL (1.8-2.4); PHOSPHORUS 3.6 mg/dL (2.5-4.9); POTASSIUM 3.8 mmol/L (3.5-5.1); SODIUM SERUM 143 mmol/L (136-145); TOTAL PROTEIN, SERUM 7.3 g/dL (6.4-8.2); UREA NITROGEN, BLOOD 33 mg/dL (7-18)
[2020-05-07] MEDS: DOCUSATE SODIUM 250 MG CAPSULE PO SCH ×2 (08:25→17:52)
[2020-05-07] MEDS: CARVEDILOL 12.5 MG TABLET PO SCH ×2 (08:25→21:28)
[2020-05-07] MEDS: hydrALAZINE HCL 25 MG TABLET PO SCH ×2 (08:25→17:52)
[2020-05-07] MEDS: PANTOPRAZOLE 40 MG TABLET.DR PO SCH (08:25)
[2020-05-07] MEDS: ASPIRIN EC 81 MG TABLET.DR PO SCH (08:25)
[2020-05-07] MEDS: AMLODIPINE BESYLATE 5 MG TABLET PO SCH (08:26)
[2020-05-07] MEDS: ENSURE ENLIVE CHOC 237 ML CAN PO SCH ×3 (08:27→17:55)
[2020-05-07] MEDS ORDERED: LACTULOSE 10 G/15 ML UDC (PYXIS) PO PRN (13:30)
[2020-05-07 15:55] VITALS: BP 138/78
[2020-05-07] MEDS: WARFARIN SODIUM 5 MG TABLET PO SCH (17:54)
--- NOTE | 2020-05-07 19:00 | NUR ---
RN MS NOTES PT HAD ONE LARGE BM THIS SHIFT, WITH REGULAR COLOR AND CONSISTENCY, NO FOUL ODOR NOTED.
--- NOTE | 2020-05-07 19:00 | NUR ---
RN MS NOTES PT IN BED, RESTING, NO SIGN OF PAIN OR DISTRESS, TOLERATES ROOM AIR, SEEN BY DR. MARINELLI TODAY, PLAN OF CARE DISCUSSED WITH PT'S BRITTON MORRIS, ASSISTED WITH MEALS, ALSO SEEN AND EVALUATED BY SPEECH THERAPIST, RECOMMENDATIONS GIVEN, PM CARE PROVIDED, PM MEDS GIVEN ORDERED, KEPT WARM AND COMFORTABLE IN BED.
[2020-05-07 20:00] VITALS: BP 116/74
[2020-05-07 20:01] LABS: BILIRUBIN,URINE NEGATIVE (NEGATIVE); COLOR,URINE YELLOW (YELLOW); LEUKOCYTE ESTERASE ,URINE SMALL (NEGATIVE); NITRITE, URINE NEGATIVE (NEGATIVE); PROTEIN,URINE NEGATIVE (NEGATIVE); UGLUCOSE NEGATIVE (NEGATIVE); UROBILINOGEN,URINE 0.2 EU/dL (0.2)
[2020-05-07 20:04] LABS: CREATININE, URINE 95.9 MG/DL (30.0-125.0)
[2020-05-07 20:32] LABS: BACTERIA,URINE Few /HPF (None Seen); SQUAMOUS EPITHELIAL CELL,UR Rare /HPF (None Seen)
[2020-05-07 21:22] LABS: EOSINOPHIL,URINE None Seen
[2020-05-07] MEDS: DONEPEZIL 5 MG TABLET PO SCH (21:29)
[2020-05-07] MEDS: TAMSULOSIN 0.4 MG CAP.SR.24H PO SCH (21:29)
--- NOTE | 2020-05-07 22:00 | NUR ---
NEW IV INSERTED TO RFA. GAUGE 22 PT TOLERATED PROCEDURE WELL. PRIOR TO CHANGE OF SHIFT PER REPORT FROM CARLO PT REMOVED LFA #22. PT HAS IV ACCESS WRAPPED IN ARMSLEEVES. WILL CONT MONITOR PT.
--- NOTE | 2020-05-08 07:00 | NUR ---
RN MS CLOSING NOTE PT HAD ONE LARGE BM THIS SHIFT, WITH REGULAR COLOR AND CONSISTENCY, PT IN NO APPARENT DISTRESS. NO SOB. IN NO APPARENT PAIN. PT NOT IN ANY APPARENT DISTRESS. RESP EVEN AND ULABORED. BED ALARM IS ACTIVE CALL LIGHT PLACED WITHIN REACH. WILL ENDORSE TO ONCOMING SHIFT.
--- NOTE | 2020-05-08 07:30 | NUR ---
RN MS NOTES PT IN BED, AWAKE, NO SIGN OF PAIN, NOT IN DISTRESS, CALL LIGHT WITHIN REACH, KEPT WARM AND COMFORTABLE IN BED, REPOSITIONED FOR COMFORT, NEEDS ATTENDED.
[2020-05-08 07:38] LABS: BASOPHILS # (AUTO) 0.1 /CMM (0.0-0.2); BASOPHILS % (AUTO) 0.8 % (0.0-2.0); EOSINOPHILS % (AUTO) 5.3 % (0.0-6.0); HEMATOCRIT 42 % (39-51); HEMOGLOBIN 13.5 g/dL (13.5-17.5); LYMPHOCYTES # (AUTO) 2.8 /CMM (0.8-4.8); LYMPHOCYTES % (AUTO) 31.1 % (20.0-44.0); MEAN CORPUSCULAR HGB CONC 33 g/dl (31.0-36.0); MEAN CORPUSCULAR VOLUME 88 fL (80-96); MONOCYTES # (AUTO) 1.1 /CMM (0.1-1.30); MONOCYTES % (AUTO) 11.9 % (2.0-12.0); NEUTROPHILS # (AUTO) 4.6 /CMM (1.8-8.9); NEUTROPHILS % (AUTO) 50.9 % (43.0-81.0); PLATELET COUNT (AUTO) 275 /CMM (150-450); RED BLOOD CELL COUNT(AUTO) 4.76 MIL/uL (4.5-6.0)
[2020-05-08 08:00] VITALS: BP 128/71
[2020-05-08 08:07] LABS: PTH, INTACT 21 pg/mL (15-65)
[2020-05-08 08:31] LABS: CREATININE 1.2 mg/dL (0.6-1.3); MAGNESIUM 2.4 mg/dL (1.8-2.4); PHOSPHORUS 3.4 mg/dL (2.5-4.9); POTASSIUM 3.9 mmol/L (3.5-5.1)
[2020-05-08] MEDS: CARVEDILOL 12.5 MG TABLET PO SCH ×2 (08:53→21:37)
[2020-05-08] MEDS: AMLODIPINE BESYLATE 5 MG TABLET PO SCH (08:53)
[2020-05-08] MEDS: ASPIRIN EC 81 MG TABLET.DR PO SCH (08:53)
[2020-05-08] MEDS: ENSURE ENLIVE CHOC 237 ML CAN PO SCH ×3 (08:53→17:31)
[2020-05-08] MEDS: DOCUSATE SODIUM 250 MG CAPSULE PO SCH ×2 (08:53→17:36)
[2020-05-08] MEDS: PANTOPRAZOLE 40 MG TABLET.DR PO SCH (08:54)
[2020-05-08] MEDS: hydrALAZINE HCL 25 MG TABLET PO SCH ×2 (08:54→17:00)
[2020-05-08 11:07] LABS: *SPE A/G RATIO 0.7 (0.7-1.7); *SPE ALBUMIN 2.7 g/dL (2.9-4.4); *SPE ALPHA-1-GLOBULIN 0.3 g/dL (0.0-0.4); *SPE ALPHA-2-GLOBULIN 0.6 g/dL (0.4-1.0); *SPE BETA GLOBULIN 1.2 g/dL (0.7-1.3); *SPE M-SPIKE Not Observed g/dL (Not Observed); *SPEGAMMA GLOBULIN 1.9 g/dL (0.4-1.8)
[2020-05-08 16:00] VITALS: BP 118/75
[2020-05-08] MEDS: WARFARIN SODIUM 5 MG TABLET PO SCH (17:37)
--- NOTE | 2020-05-08 19:00 | NUR ---
RN MS NOTES PT IN BED, AWAKE, ALERT TO SELF, NON VERBAL, NO SIGN OF PAIN OR DISTRESS, ASSISTED WITH DINNER, SEEN BY DR. BOSS TODAY, PT HAD 2 LARGE BM'S TODAY, PM MEDS GIVEN, PM CARE PROVIDED, ALL NEEDS ATTENDED.
[2020-05-08 20:00] VITALS: BP 124/72
--- NOTE | 2020-05-08 20:00 | NUR ---
MS ROSELIA INITIAL NOTES RECEIVED REPORT FROM AM NURSE CARLO AND CHECKED PT IN BED AWAKE AND ALERT NORTH KOREAN SPEAKING , NO SIGNS OF ANY ACUTE DISTRESS NOTED. SKIN WARM AND DRY TO TOUCH, NOT IN ANY DISCOMFORT. HEPLOCK AT THIS TIME. RE-ORIENTED WHERE HE AT AND HOW TO USED THE CALL LIGHT SYSTEM. KEPT HIM HOB ELEVATED AND SIDE RAILS X2 UP. BED ALARM ALSO SET FOR PT SAFETY. WILL CONTINUE MONITORING.
[2020-05-08] MEDS: DONEPEZIL 5 MG TABLET PO SCH (21:37)
[2020-05-08] MEDS: TAMSULOSIN 0.4 MG CAP.SR.24H PO SCH (21:37)
--- NOTE | 2020-05-09 07:39 | NUR ---
MS RN OPENING NOTES: RECEIVED PATIENT AWAKE IN BED IN NO ACUTE SIGNS OF DISTRESS. HOB ELEVATED. ALERT AND FOLLOWS COMMANDS. BOTSWANAN SPEAKING, NO C/O PAIN OR ANY DISCOMFORTS AT THIS TIME. IV SL ON RIGHT FA #22G PATENT, INTACT AND FLUSHES WELL. SAFETY MEASURES IN PLACE: BED LOCKED AND IN LOWEST POSITION. SIDE RAILS UP X2. CALL LIGHT WITHIN REACH. WILL CONTINUE TO MONITOR FOR PATIENT ACCORDINGLY.
--- NOTE | 2020-05-09 07:40 | NUR ---
ms harp maker closing notes pt remain sleeping at this time. no signs of any discomfort or any acute distress note the whole night. some confusion . slept well and all due meds given and tolerated well. no aspiration noted. kept him warm and comfortable at all times. place call light at reach. bed alarm set for pt safety. will endorse to am nurse for continuity of care.
[2020-05-09 08:12] VITALS: BP 136/77
[2020-05-09 08:14] LABS: BASOPHILS % (AUTO) 0.4 % (0.0-2.0); EOSINOPHILS % (AUTO) 4.6 % (0.0-6.0); HEMATOCRIT 45 % (39-51); HEMOGLOBIN 14.4 g/dL (13.5-17.5); LYMPHOCYTES # (AUTO) 2.3 /CMM (0.8-4.8); LYMPHOCYTES % (AUTO) 30.6 % (20.0-44.0); MEAN CORPUSCULAR HGB CONC 32 g/dl (31.0-36.0); MEAN CORPUSCULAR VOLUME 89 fL (80-96); MONOCYTES # (AUTO) 0.7 /CMM (0.1-1.30); MONOCYTES % (AUTO) 9.2 % (2.0-12.0); NEUTROPHILS # (AUTO) 4.2 /CMM (1.8-8.9); NEUTROPHILS % (AUTO) 55.2 % (43.0-81.0); PLATELET COUNT (AUTO) 275 /CMM (150-450); WHITE BLOOD COUNT (AUTO) 7.6 K/uL (4.3-11.0)
[2020-05-09] MEDS: ENSURE ENLIVE CHOC 237 ML CAN PO SCH ×3 (08:47→17:17)
[2020-05-09] MEDS: DOCUSATE SODIUM 250 MG CAPSULE PO SCH ×2 (08:48→17:14)
[2020-05-09] MEDS: AMLODIPINE BESYLATE 5 MG TABLET PO SCH (08:48)
[2020-05-09] MEDS: PANTOPRAZOLE 40 MG TABLET.DR PO SCH (08:49)
[2020-05-09] MEDS: hydrALAZINE HCL 25 MG TABLET PO SCH ×2 (08:49→17:15)
[2020-05-09] MEDS: CARVEDILOL 12.5 MG TABLET PO SCH ×2 (08:49→21:47)
[2020-05-09] MEDS: ASPIRIN EC 81 MG TABLET.DR PO SCH (08:50)
[2020-05-09 09:29] LABS: CALCIUM, SERUM 9.1 mg/dL (8.5-10.1); CREATININE 1.2 mg/dL (0.6-1.3)
[2020-05-09] MEDS ORDERED: WARFARIN SODIUM 2 MG TABLET PO SCH (17:00)
--- NOTE | 2020-05-09 18:41 | NUR ---
MS RN CLOSING NOTES: PATIENT IN BED RESTING AT MODERATE HIGH BACKREST POSITION. A/O X1. MALAGASY SPEAKING. ON ROOM AIR, TOLERATING WELL WITH NO SOB NOTED. IV ACCESS ON RFA #22G PATENT AND INTACT. ALL NEEDS AND CARE ATTENDED WELL. KEPT CLEAN, DRY AND COMFORTABLE. SAFETY MEASURES IN PLACE: BED LOCKED AND IN LOWEST POSITION. SIDE RAILS UP X2. CALL LIGHT WITHIN REACH. WILL ENDORSE KRISTINA TO ASW/ASUW TACTICAL AIR CONTROLLER NURSE.
--- NOTE | 2020-05-09 19:30 | NUR ---
MS ROSELIA INITIAL NOTES RECEIVED PT IN BED ON SITTING POSITION WATCHING TV AT THIS TIME. NOT IN ANY ACUTE DISTRESS NOTED. DENIES ANY PAIN OR ANY DISCOMFORT. RE-ORIENTED WHERE HE AT AND HOW TO USED THE CALL LIGHT SYSTEM , KEPT HIM WARM AND COMFORTABLE AT ALL TIMES. WILL CONTINUE MONITORING.
[2020-05-09 20:00] VITALS: BP 123/66
[2020-05-09] MEDS: TAMSULOSIN 0.4 MG CAP.SR.24H PO SCH (21:46)
[2020-05-09] MEDS: DONEPEZIL 5 MG TABLET PO SCH (21:47)
--- NOTE | 2020-05-10 | NUR ---
MS SENIOR ASSISTANT MANAGER NOTES PT SLEEPING COMFORTABLY IN BED WITHOUT ANY DISTRESS NOTED. WILL CONTINUE MONITORING.
[2020-05-10 07:09] LABS: BASOPHILS % (AUTO) 0.3 % (0.0-2.0); EOSINOPHILS % (AUTO) 5.1 % (0.0-6.0); HEMATOCRIT 42 % (39-51); HEMOGLOBIN 13.9 g/dL (13.5-17.5); LYMPHOCYTES # (AUTO) 2.3 /CMM (0.8-4.8); LYMPHOCYTES % (AUTO) 28.9 % (20.0-44.0); MEAN CORPUSCULAR HGB CONC 33 g/dl (31.0-36.0); MEAN CORPUSCULAR VOLUME 87 fL (80-96); MONOCYTES # (AUTO) 0.8 /CMM (0.1-1.30); MONOCYTES % (AUTO) 9.9 % (2.0-12.0); NEUTROPHILS # (AUTO) 4.5 /CMM (1.8-8.9); NEUTROPHILS % (AUTO) 55.8 % (43.0-81.0); PLATELET COUNT (AUTO) 263 /CMM (150-450); RED BLOOD CELL COUNT(AUTO) 4.86 MIL/uL (4.5-6.0); WHITE BLOOD COUNT (AUTO) 8.1 K/uL (4.3-11.0)
--- NOTE | 2020-05-10 07:38 | NUR ---
MS SENIOR ENGINEERING TEAM LEADER CLOSING NOTES PT BACK TO SLEEP AFTER MORNING CARE DONE, SLEPT WELL AND NO SIGNS OF ANY ACUTE DISTRESS OR ANY DISCOMFORT NOTED THE WHOLE SHIFT. ALL DUE MEDS GIVEN AND ALL NEEDS MET. KEPT HIM WARM AND COMFORTABLE AT ALL TIMES.BED IN LOW AND LOCK IN POSITION WITH SIDE RAILS X2 UP. BED ALARM SET FOR SAFETY. ENDORSE TO AM NURSE FOR CONTINUITY OF CARE.
[2020-05-10 07:41] LABS: CALCIUM, SERUM 9.3 mg/dL (8.5-10.1); CREATININE 1.1 mg/dL (0.6-1.3); POTASSIUM 4.2 mmol/L (3.5-5.1)
[2020-05-10 08:22] VITALS: BP 139/72
[2020-05-10] MEDS: PANTOPRAZOLE 40 MG TABLET.DR PO SCH (09:10)
[2020-05-10] MEDS: AMLODIPINE BESYLATE 5 MG TABLET PO SCH (09:11)
[2020-05-10] MEDS: ASPIRIN EC 81 MG TABLET.DR PO SCH (09:11)
[2020-05-10] MEDS: hydrALAZINE HCL 25 MG TABLET PO SCH ×2 (09:12→18:59)
[2020-05-10] MEDS: DOCUSATE SODIUM 250 MG CAPSULE PO SCH ×2 (09:12→18:57)
[2020-05-10] MEDS: CARVEDILOL 12.5 MG TABLET PO SCH ×2 (09:12→18:59)
[2020-05-10] MEDS: ENSURE ENLIVE CHOC 237 ML CAN PO SCH ×3 (09:13→19:00)
[2020-05-10] MEDS ORDERED: ENOXAPARIN SODIUM 80 MG/0.8 ML DISP.SYRIN SQ SCH (09:30)
--- NOTE | 2020-05-10 13:56 | NUR ---
MS/RN NOTE COVID-[address] PER [address] DUKE. NOTED AND CARRIED OUT.
[2020-05-10 16:51] VITALS: BP 130/78
[2020-05-10] MEDS ORDERED: WARFARIN SODIUM 2 MG TABLET PO SCH (17:00)
--- NOTE | 2020-05-10 18:00 | NUR ---
MS/RN NOTE THE PATIENT REFUSED SKIN ASSESSMENT FOR DISCHARGE.
[2020-05-10 18:59] VITALS: BP 130/78
--- NOTE | 2020-05-10 19:00 | NUR ---
MS/RN NOTE DISCHARGE EDUCATION PROVIDED TO RESPONSIBLE [employer] NELLIE AND SHE VERBALIZED UNDERSTANDING. THE PATIENT GOT PICKED UP VIA PRIVATE CAR AND IN STABLE CONDITION.
== END 2020-05-10 19:18 | disposition home health service (06) | DRG 280 ==
LOC: ER 23:21 → TRANSITION 05-06 01:52 → TELE 05-06 16:48 → MED 05-07 11:01
PROVIDERS: ADMIT Nurse Practitioner Acute Care; ATTEND Legal Medicine
DX: I21.4 Non-ST elevation (NSTEMI) myocardial infarction (principal); N17.0 Acute kidney failure with tubular necrosis; G93.40 Encephalopathy, unspecified; I13.0 Hypertensive heart and chronic kidney disease with heart failure and stage 1 through stage 4 chronic kidney disease, or unspecified chronic kidney disease; I50.22 Chronic systolic (congestive) heart failure; J98.11 Atelectasis; K56.41 Fecal impaction; Z79.899 Other long term (current) drug therapy; I48.91 Unspecified atrial fibrillation; F03.90 Unspecified dementia, unspecified severity, without behavioral disturbance, psychotic disturbance, mood disturbance, and anxiety; N40.0 Benign prostatic hyperplasia without lower urinary tract symptoms; I25.10 Atherosclerotic heart disease of native coronary artery without angina pectoris; Z95.810 Presence of automatic (implantable) cardiac defibrillator; I34.0 Nonrheumatic mitral (valve) insufficiency; K80.20 Calculus of gallbladder without cholecystitis without obstruction; N20.0 Calculus of kidney; N43.3 Hydrocele, unspecified; I71.4 Abdominal aortic aneurysm, without rupture; E78.5 Hyperlipidemia, unspecified; K21.9 Gastro-esophageal reflux disease without esophagitis; Z95.2 Presence of prosthetic heart valve; Z86.73 Personal history of transient ischemic attack (TIA), and cerebral infarction without residual deficits; Z86.79 Personal history of other diseases of the circulatory system; Z95.1 Presence of aortocoronary bypass graft; Z79.82 Long term (current) use of aspirin; Z79.01 Long term (current) use of anticoagulants; Z79.02 Long term (current) use of antithrombotics/antiplatelets; K58.9 Irritable bowel syndrome, unspecified; H91.90 Unspecified hearing loss, unspecified ear; K57.90 Diverticulosis of intestine, part unspecified, without perforation or abscess without bleeding; K62.89 Other specified diseases of anus and rectum; R31.9 Hematuria, unspecified
CPT/HCPCS: 36415; 71045-TC; 80048-TC; 80053-TC; 80061-TC; 80076-TC; 81001; 82550-TC; 82570-TC; 83605-TC; 83690-TC; 83735-TC; 83880; 83970; 84100-TC; 84155; 84155-TC; 84165; 84300-TC; 84484-TC; 85025-TC; 85610-TC; 85730-TC; 87081-TC; 87086-TC; 92526; 92611-TC; 93307-TC; 97110-TC; 97116-TC; 97530-TC; C9803; G0378; J1650; J2405

== ENCOUNTER 2020-08-04 16:23 | Inpatient (IN) | payer MEDICARE, OTHER ==
[~2020-08-04] VITALS: Ht 172.7 cm; Wt 62.6 kg
[~2020-08-04 16:23] MED LIST changes: +ACET-2605 PO; +ASCO-352 PO; -ASPI-1420 PO; -BUME2TAB7 PO; +DICL100G34 TP; -DOCU250C14 PO; -ENOX80DI SQ; +ERGO500014 PO; +ESCI10TA PO; +FURO-145 PO; -LACT-54 PO; -LEVO500T23 PO; +LISI10TA29 PO; +LORA-259 PO; +MEMA10TA PO; -MEMA1CAP3 PO; -OMEP40CA13 PO; +PANT40TA2 PO; +PRED5TAB PO; +QUET25TA PO; -RAMI5CAP66 PO; +WARF3TAB59 PO; -Warfarin Sodium PO; +ZINC1CAP2 PO
[2020-08-04] MEDS ORDERED: KETOROLAC TROMETHAMINE 15 MG/ML VIAL ONE (16:56)
[2020-08-04] MEDS ORDERED: KETOROLAC TROMETHAMINE INJ 30 MG/ML VIAL IV ONE (17:00)
[2020-08-04] MEDS ORDERED: IV NS 0.9% 1,000 ML BAG IV ONE (17:00)
--- NOTE | 2020-08-04 17:05 | NUR ---
BIB DAUGTHER C/O ABDOMINAL PAIN AND BLOOD IN THE URINE STARTED YESTERDAY. PT EYES OPEN, NON VERBAL. RR EVEN & UNLABORED. NAD NOTED AT THIS TIME. PT SEEN & EVAL'D BY DR. ROSE. PLACED ON [place] PAINTER, SR. DAUGHTER AT BS & WILL CONT TO MONITOR.
[2020-08-04 17:42] LABS: BASOPHILS % (AUTO) 0.4 % (0.0-2.0); EOSINOPHILS % (AUTO) 3.4 % (0.0-6.0); HEMATOCRIT 44 % (39-51); HEMOGLOBIN 14.6 g/dL (13.5-17.5); MEAN CORPUSCULAR HGB CONC 33 g/dl (31.0-36.0); MEAN CORPUSCULAR VOLUME 89 fL (80-96); MONOCYTES # (AUTO) 0.7 /CMM (0.1-1.30); MONOCYTES % (AUTO) 9.6 % (2.0-12.0); NEUTROPHILS # (AUTO) 3.9 /CMM (1.8-8.9); NEUTROPHILS % (AUTO) 57.6 % (43.0-81.0); PLATELET COUNT (AUTO) 221 /CMM (150-450); RED BLOOD CELL COUNT(AUTO) 4.91 MIL/uL (4.5-6.0); WHITE BLOOD COUNT (AUTO) 6.8 K/uL (4.3-11.0)
[2020-08-04 17:48] LABS: CARBON DIOXIDE 28 mmol/L (21-32); CHLORIDE 106 mmol/L (98-107); CREATININE 1.4 mg/dL (0.6-1.3); GLUCOSE 118 mg/dL (74-106); POTASSIUM 4.2 mmol/L (3.5-5.1); SODIUM SERUM 141 mmol/L (136-145); UREA NITROGEN, BLOOD 27 mg/dL (7-18)
[2020-08-04 17:53] LABS: ALANINE AMINOTRANSFERASE 23 U/L (12-78); ALBUMIN 3.3 g/dL (3.4-5.0); ALKALINE PHOSPHATASE 151 U/L (46-116); ASPARTATE AMINOTRANSFERASE 24 U/L (15-37); BILIRUBIN,DIRECT 0.2 mg/dL (0.0-0.2); BILIRUBIN,TOTAL 0.5 mg/dL (0.2-1.0); LIPASE 147 U/L (73-393); TOTAL PROTEIN, SERUM 7.7 g/dL (6.4-8.2)
[2020-08-04 18:09] LABS: BILIRUBIN,URINE NEGATIVE (NEGATIVE); COLOR,URINE YELLOW (YELLOW); LEUKOCYTE ESTERASE ,URINE NEGATIVE (NEGATIVE); NITRITE, URINE NEGATIVE (NEGATIVE); PROTEIN,URINE 100 mg/dl (NEGATIVE); UGLUCOSE NEGATIVE (NEGATIVE)
[2020-08-04 18:54] LABS: BACTERIA,URINE None seen /HPF (None Seen); RBC,URINE TOO NUMEROUS TO COUN /HPF (0-2); SQUAMOUS EPITHELIAL CELL,UR 0-2 /HPF (None Seen); WBC,URINE 0-2 /HPF (0-3)
[2020-08-04] MEDS ORDERED: PHYTONADIONE INJ 10 MG/1 ML AMPUL IV ONE (19:00)
[2020-08-04] MEDS ORDERED: PROTHROMBIN COMPLEX CONCENTR 500 UNIT VIAL IV ONE ×2 (19:00)
[2020-08-04] MEDS ORDERED: PHYTONADIONE INJ 10 MG in IV D5W 50 ML SQ ONE (19:00)
[2020-08-04] MEDS ORDERED: PHYTONADIONE INJ 10 MG/1 ML AMPUL ONE (19:10)
[2020-08-04] MEDS ORDERED: DONE10TA44 PO (19:10)
--- NOTE | 2020-08-04 19:10 | NUR ---
COVID SAMPLE SENT TO LAB
--- NOTE | 2020-08-04 19:20 | NUR ---
DR BOSS PAGED PER DR RSOE
--- NOTE | 2020-08-04 19:20 | NUR ---
PT NON VERBAL AT BASELINE. VSS. NOT IN ANY APPARENT DISTRESS. WILL CONTINUE TO MONITOR PT
--- NOTE | 2020-08-04 19:46 | NUR ---
ADMIT ORDERS FROM DR. MONTES: ADMIT TELE DX: HEMATURIA BEDREST CARDIAC SOFT DIET NS 70ML/HR TYLENOL 650 Q6 PRN ROBLEDO MILD PAIN TEMP ZOFRAN 4MG IVP Q6 PRN NV PROTONIX 40MG PO QD ROCEPIHIN 1MG Q24 IVPB AM LABS CBC, BMP, PT/INR
--- NOTE | 2020-08-04 21:30 | NUR ---
TELE 311-0
[2020-08-04 21:45] VITALS: BP 142/79
--- NOTE | 2020-08-04 21:45 | NUR ---
SUPERVISOR PAINT DEPARTMENTEVENT PLANNING MANAGER NOTE RECEIVED PATIENT IN STABLE CONDITION. PATIENT IS A/O X 1-2. HX OF DEMENTIA. PATIENT IS ENGLISH SPEAKING ONLY. FOLLOWS COMMANDS. TOLERATING ROOM AIR WITH 97% O2 SATURATION. BREATHING EVEN AND UNLABORED. +1 EDEMA OBSERVED ON BOTH FEET, PATIENT'S SKIN INTACT. PERMANENT CARDIAC PACEMAKER ON THE LEFT SIDE OF THE CHEST. R AC #22 G PATENT AND INTACT. SAFETY MEASURES IN PLACE: BED IN LOCKED AND LOWEST POSITION, CALL LIGHT WITHIN REACH, SIDE RAILS UP X 3, BED ALARM ON. ORIENTED PATIENT TO THE UNIT, ROOM, PRIMARY NURSE, CHARGE NURSE, AND SEED TRUCKER. WILL MONITOR PATIENT CLOSELY.
--- NOTE | 2020-08-04 21:50 | NUR ---
SECOND WORKER NOTE TELE MONITOR READS SR WITH 80 BPM AND LEFT BUNDLE BRANCH BLOCK.
--- NOTE | 2020-08-04 21:52 | NUR ---
PT TRANSFERRED TO ROOM VIA ACLS PROTOCOL
[2020-08-04] MEDS ORDERED: ACETAMINOPHEN 325 MG TABLET PO PRN (23:30)
[2020-08-04] MEDS ORDERED: ONDANSETRON HCL/PF 4 MG/2 ML VIAL IV PRN (23:30)
[2020-08-04] MEDS ORDERED: CEFTRIAXONE 1 G VIAL ONE (23:34)
[2020-08-04] MEDS: CEFTRIAXONE 1 G in IV D5W 50 ML IV SCH (23:52)
[2020-08-04] MEDS: IV NS 0.9% 1,000 ML IV PRN (23:53)
[2020-08-05] VITALS: BP 139/90
[2020-08-05 04:00] VITALS: BP 158/95
[2020-08-05 06:44] LABS: BASOPHILS % (AUTO) 0.4 % (0.0-2.0); EOSINOPHILS % (AUTO) 4.5 % (0.0-6.0); HEMATOCRIT 41 % (39-51); HEMOGLOBIN 13.7 g/dL (13.5-17.5); LYMPHOCYTES # (AUTO) 2.3 /CMM (0.8-4.8); LYMPHOCYTES % (AUTO) 33.7 % (20.0-44.0); MEAN CORPUSCULAR HGB CONC 33 g/dl (31.0-36.0); MEAN CORPUSCULAR VOLUME 89 fL (80-96); MONOCYTES # (AUTO) 0.6 /CMM (0.1-1.30); MONOCYTES % (AUTO) 8.7 % (2.0-12.0); NEUTROPHILS # (AUTO) 3.5 /CMM (1.8-8.9); NEUTROPHILS % (AUTO) 52.7 % (43.0-81.0); PLATELET COUNT (AUTO) 182 /CMM (150-450); WHITE BLOOD COUNT (AUTO) 6.7 K/uL (4.3-11.0)
[2020-08-05 07:01] LABS: CALCIUM, SERUM 8.3 mg/dL (8.5-10.1); CREATININE 1.1 mg/dL (0.6-1.3); POTASSIUM 3.8 mmol/L (3.5-5.1)
--- NOTE | 2020-08-05 07:05 | NUR ---
MS RN CLOSING NOTE PATIENT IN BED RESTING, EASILY AROUSED. A/O X 4. BREATHING EVEN AND UNLABORED. DOES NOT COMPLAIN OF ABDOMINAL PAIN AT THIS TIME. IV ACCESS PATENT AND INTACT. TELE BOX READS SR 87 BPM WITH BUNDLE BUNCH BLOCK. PACEMAKER ON LEFT CHEST. SAFETY MEASURES MAINTAINED DURING THE SHIFT: SIDE RAILS UP, BED IN LOCKED AND LOWEST POSITION, CALL LIGHT WITHIN REACH, BED ALARM ON. ALL NEEDS MET AND ATTENDED. ALL ORDERS CARRIED OUT. WILL ENDORSE TO DAY SHIFT NURSE FOR KRISTINA. Addendum: 08/05/20 at 0708 by KENYETTA MORRIS RN JONAH HERRON
--- NOTE | 2020-08-05 07:35 | NUR ---
MS RN OPENING NOTE RECEIVED PATIENT AWAKE IN BED, EASILY AROUSED. A/O X 2. BREATHING EVEN AND UNLABORED. ON ROOM AIR, DOES NOT COMPLAIN OF ABDOMINAL PAIN AT THIS TIME NO PRESENCE OF BLOOD IN THE URINE. IV ACCESS PATENT AND INTACT. TELE BOX READS SR 86 BPM WITH BUNDLE BUNCH BLOCK AND PVC. PACEMAKER ON LEFT CHEST. SAFETY MEASURES MAINTAINED DURING THE SHIFT: SIDE RAILS UP, BED IN LOCKED AND LOWEST POSITION, CALL LIGHT WITHIN REACH, BED ALARM ON. ALL NEEDS MET AND ATTENDED.WILL CONTINUE TO MONITOR.
[2020-08-05] MEDS ORDERED: LORAZEPAM 1 MG TABLET PO PRN (08:30)
[2020-08-05] MEDS ORDERED: MISCELLANEOUS MED 1 EA EA PO PRN (08:30)
[2020-08-05 08:33] VITALS: BP 139/86
[2020-08-05] MEDS: PANTOPRAZOLE 40 MG TABLET.DR PO SCH (08:35)
[2020-08-05] MEDS ORDERED: ACETAMINOPHEN 325 MG TABLET PO PRN (09:30)
[2020-08-05] MEDS: hydrALAZINE HCL 25 MG TABLET PO SCH ×2 (09:55→16:48)
[2020-08-05] MEDS: ESCITALOPRAM OXALATE (10 MG) 10 MG TABLET PO SCH (09:56)
[2020-08-05] MEDS: predniSONE 5 MG TABLET PO SCH (09:56)
[2020-08-05] MEDS: QUETIAPINE FUMARATE 25 MG TABLET PO SCH ×2 (09:56→16:48)
[2020-08-05] MEDS: LISINOPRIL (10MG) 10 MG TABLET PO SCH (09:57)
[2020-08-05] MEDS: DONEPEZIL 5 MG TABLET PO SCH (09:57)
[2020-08-05] MEDS: AMLODIPINE BESYLATE 5 MG TABLET PO SCH (09:58)
[2020-08-05] MEDS: ENOXAPARIN SODIUM 60 MG/0.6 ML DISP.SYRIN SQ SCH ×2 (10:28→21:33)
[2020-08-05] MEDS: MEMANTINE HCL 5 MG TABLET PO SCH (10:28)
[2020-08-05] MEDS: CARVEDILOL 12.5 MG TABLET PO SCH ×2 (10:40→21:30)
--- NOTE | 2020-08-05 14:51 | NUR ---
MS RN CLOSING NOTE RECEIVED PATIENT AWAKE IN BED, EASILY AROUSED. A/O X 2. BREATHING EVEN AND UNLABORED. ON ROOM AIR, DOES NOT COMPLAIN OF ABDOMINAL PAIN AT THIS TIME NO PRESENCE OF BLOOD IN THE URINE. IV ACCESS PATENT AND INTACT. TELE BOX READS SR 86 BPM WITH BUNDLE BUNCH BLOCK AND PVC. PACEMAKER ON LEFT CHEST. SAFETY MEASURES MAINTAINED DURING THE SHIFT: SIDE RAILS UP, BED IN LOCKED AND LOWEST POSITION, CALL LIGHT WITHIN REACH, BED ALARM ON. ALL NEEDS MET AND ATTENDED. ALL ORDERS CARRIED OUT. WILL ENDORSE TO DAY SHIFT NURSE FOR KRISTINA.
[2020-08-05] MEDS: IV NS 0.9% 1,000 ML IV PRN (15:41)
[2020-08-05 16:00] VITALS: BP 141/92
--- NOTE | 2020-08-05 18:00 | NUR ---
RN NOTES: PATIENT WAS OBSERVED NOT HAVING A URINE OUTPUT SINCE THIS MORNING, BLADDER SCAN DONE WITH RESIDUAL OF 478CC NOTED, DR. BOSS NOTIFIED WITH ORDER TO DO IN AND OUT STRAIGHT CATHETERIZATION Q6H PRN FOR URINE RETENTION ABOVE 250ML, WILL CARRY OUT ORDER
--- NOTE | 2020-08-05 18:06 | NUR ---
RN NOTES: STRAIGHT CATHETERIZATION DONE WITH 450ML URINE OUTPUT REMOVED, NO HEMATURIA NOTED, WILL CONTINUE TO MONITOR.
--- NOTE | 2020-08-05 18:48 | NUR ---
MS RN CLOSING NOTES: PATIENT WAS PLACED IN BED COMFORTABLY, AWAKE AND RESPONSIVE TO STIMULI, A/O X 2.ON ROOM AIR,NO SOB OR ANY RESP DISTRESS OBSERVED DURING THE SHIFT, NO COMPLAIN OF ABDOMINAL PAIN OR ANY SIGN OF HEMATURIA. IV ACCESS PATENT AND INTACT ON RT AC #22 ON 0.9NSS AT 70ML/HR. TELEMONITORING D/C IN THE AFTERNOON, PACEMAKER ON LEFT CHEST. PATIENT WAS OBSERVED WITH NO URINE OUTPUT SINCE MORNING CALLED, DR BOSS AND ORDERED TO DO STRAIGHT CATH Q6H PRN FOR URINE RETENTION OVER 250ML. STRAIGHT CATHETERIZATION DONE WITH 350CC URINE OUTPUT TAKEN, NO HEMATURIA,PATIENT WAS ABLE TO URINATE AFTER CATHETERIZATION. BED WAS PLACE IN LOW POSITION, SIDE RAILS UP,CALL LIGHT WITHIN REACH, BED ALARM ON. ALL NEEDS MET AND ATTENDED. ALL ORDERS CARRIED OUT. WILL ENDORSE TO INCOMING SHIFT.
--- NOTE | 2020-08-05 19:34 | NUR ---
MS RN OPENING NOTES PATIENT WAS LAST SEEN SLEEPING IN BED. PATIENT IS A/OX 1-2. PATIENT IS ON ROOM AIR AND IN NO RESPIRATORY DISTRESS. PATIENT HAS AN IV ACCESS ON HIS RIGHT AC G#18 WHICH IS INTACT AND PATENT. PATIENT HAS A PACEMAKER ON HIS LEFT CHEST. ALL SAFETY PRECAUTIONS ARE KEPT IN PLACE. SIDE RAILS UP X3. BED IS LOCKED. CALL LIGHT IS WITHIN REACH. WILL CONTINUE TO MONITOR THE PATIENT.
[2020-08-05 20:00] VITALS: BP 120/78
[2020-08-05] MEDS: TAMSULOSIN 0.4 MG CAP.SR.24H PO SCH ×2 (21:29→21:52)
--- NOTE | 2020-08-05 22:07 | NUR ---
DISCHARGE PREFERENCE PER DTR DAUGHTER PREFERS [facility] [address] PHONE [phone] WHEN CONSIDERING HOSPICE COMPANIES.
--- NOTE | 2020-08-05 22:15 | NUR ---
report from marcin ash. will continue care.
[2020-08-06] MEDS: CEFTRIAXONE 1 G in IV D5W 50 ML IV SCH ×2 (00:30→23:13)
[2020-08-06 06:21] LABS: BASOPHILS % (AUTO) 0.7 % (0.0-2.0); HEMATOCRIT 37 % (39-51); HEMOGLOBIN 12.3 g/dL (13.5-17.5); LYMPHOCYTES # (AUTO) 1.8 /CMM (0.8-4.8); LYMPHOCYTES % (AUTO) 26.1 % (20.0-44.0); MEAN CORPUSCULAR HGB CONC 33 g/dl (31.0-36.0); MEAN CORPUSCULAR VOLUME 89 fL (80-96); MONOCYTES # (AUTO) 0.6 /CMM (0.1-1.30); MONOCYTES % (AUTO) 9.2 % (2.0-12.0); NEUTROPHILS # (AUTO) 4.1 /CMM (1.8-8.9); PLATELET COUNT (AUTO) 172 /CMM (150-450); RED BLOOD CELL COUNT(AUTO) 4.14 MIL/uL (4.5-6.0); WHITE BLOOD COUNT (AUTO) 6.8 K/uL (4.3-11.0)
[2020-08-06] MEDS: PANTOPRAZOLE 40 MG TABLET.DR PO SCH ×2 (07:30→08:18)
--- NOTE | 2020-08-06 07:35 | NUR ---
MS RN OPENING NOTES RECEIVED PATIENT ASLEEP IN BED BUT EASILY AROUSABLE WITH VERBAL AND TOUCH STIMULI. PATIENT IS A/OX 1-2. PATIENT IS ON ROOM AIR AND IN NO RESPIRATORY DISTRESS. PATIENT HAS AN IV ACCESS ON HIS RIGHT AC G#18 WHICH IS INTACT AND PATENT. PATIENT HAS A PACEMAKER ON HIS LEFT CHEST. ALL SAFETY PRECAUTIONS ARE KEPT IN PLACE. SIDE RAILS UP X3. BED IS LOCKED. CALL LIGHT IS WITHIN REACH. WILL CONTINUE TO MONITOR THE PATIENT.
[2020-08-06 07:46] LABS: CALCIUM, SERUM 8.1 mg/dL (8.5-10.1); POTASSIUM 3.9 mmol/L (3.5-5.1)
[2020-08-06] MEDS: IV NS 0.9% 1,000 ML IV PRN (07:49)
[2020-08-06 08:00] VITALS: BP 144/90
--- NOTE | 2020-08-06 08:20 | NUR ---
MED/UX ENGINEER NOTED DUPLICATE MED PANTOPRAZOLE DUPLICATE MEDICATION ON EMAR
[2020-08-06] MEDS: ESCITALOPRAM OXALATE (10 MG) 10 MG TABLET PO SCH (08:50)
[2020-08-06] MEDS: QUETIAPINE FUMARATE 25 MG TABLET PO SCH ×2 (08:50→17:12)
[2020-08-06] MEDS: MEMANTINE HCL 5 MG TABLET PO SCH (08:50)
[2020-08-06] MEDS: AMLODIPINE BESYLATE 5 MG TABLET PO SCH (08:51)
[2020-08-06] MEDS: LISINOPRIL (10MG) 10 MG TABLET PO SCH (08:51)
[2020-08-06] MEDS: DONEPEZIL 5 MG TABLET PO SCH (08:52)
[2020-08-06] MEDS: hydrALAZINE HCL 25 MG TABLET PO SCH ×2 (08:53→17:13)
[2020-08-06] MEDS: ENOXAPARIN SODIUM 60 MG/0.6 ML DISP.SYRIN SQ SCH ×2 (08:55→21:13)
[2020-08-06] MEDS ORDERED: Linaclotide (Linzess) 145 MCG PO SCH (09:00)
[2020-08-06] MEDS: predniSONE 5 MG TABLET PO SCH (09:15)
--- NOTE | 2020-08-06 12:50 | NUR ---
MS HERRON OPENING NOTES RECEIVED PATIENT ASLEEP IN BED BUT EASILY AROUSABLE WITH VERBAL AND TOUCH STIMULI. PATIENT IS A/OX 1-2. PATIENT IS ON ROOM AIR AND IN NO RESPIRATORY DISTRESS. PATIENT HAS AN IV ACCESS ON HIS RIGHT AC G#18 WHICH IS INTACT AND PATENT. PATIENT HAS A PACEMAKER ON HIS LEFT CHEST. ALL SAFETY PRECAUTIONS ARE KEPT IN PLACE. SIDE RAILS UP X3. BED IS LOCKED. CALL LIGHT IS WITHIN REACH. WILL CONTINUE TO MONITOR THE PATIENT. Addendum: 08/06/20 at 185 by JEAN SWENSON RN ERROR Addendum: 08/06/20 at 1856 by JEAN SWENSON RN ERROR
[2020-08-06] MEDS: ENSURE ENLIVE CHOC 237 ML CAN PO SCH ×2 (13:30→17:15)
[2020-08-06 16:00] VITALS: BP 133/92
[2020-08-06] MEDS: WARFARIN SODIUM 2 MG TABLET PO SCH (17:12)
[2020-08-06 17:13] VITALS: BP 133/92
--- NOTE | 2020-08-06 18:56 | NUR ---
MS RN CLOSING NOTES: PATIENT IS AWAKE, ALERT AND ORIENTED X1. NON-VERBAL. IN ROOM AIR, NO SOB NOTED AT THIS TIME. PACEMAKER ON LEFT CHEST. TAKES CRUSHED MEDS MIXED IN PUDDING, BUT SPIT OUT EVENING MEDS. BED WAS PLACE IN LOW POSITION, SIDE RAILS UP,CALL LIGHT WITHIN REACH, BED ALARM ON. ALL NEEDS MET AND ATTENDED. ALL ORDERS CARRIED OUT. VOMITED X1, ZOFRAN 4MG IV PUSH GIVEN ORDERED. WILL ENDORSE TO INCOMING SHIFT.
--- NOTE | 2020-08-06 19:30 | NUR ---
MS/RN OPENING NOTE RECEIVED PATIENT RESTING IN BED. ALERT AND ORIENTED TO NAME ONLY. NO S/SX OF PAIN NOTED. IV ACCESS TO RIGHT AC #18G INTACT, PATENT AND SALINE LOCKED. CONTINUES ON IV ABX. NO S/SX OF NAUSEA, VOMITING OR STOMACH PAIN NOTED. CALL LIGHT WITHIN REACH. ASPIRATION, FALL AND SAFETY PRECAUTIONS MAINTAINED. WILL CONTINUE TO MONITOR.
[2020-08-06 20:00] VITALS: BP 134/81
[2020-08-06] MEDS: TAMSULOSIN 0.4 MG CAP.SR.24H PO SCH (21:05)
[2020-08-06] MEDS: CARVEDILOL 12.5 MG TABLET PO SCH (21:06)
--- NOTE | 2020-08-06 23:51 | NUR ---
MS/RN NOTE BLADDER SCAN SHOWED 96CC. ABDOMEN NON-DISTENDED. NON-TENDER. DIAPER FREE OF HEMATURIA. WILL CONTINUE TO MONITOR.
--- NOTE | 2020-08-07 06:20 | NUR ---
MS/RN CLOSING NOTE PATIENT CURRENTLY SLEEPING IN BED. ALERT AND ORIENTED X 1. NO S/SX OF PAIN NOTED AT THIS TIME. IV ACCESS TO RIGHT AC INTACT, PATENT AND SALINE LOCKED. CONTINUES ON IV ABX. BLADDER SCAN AT 0600 SHOWED 0CC OF URINE IN BLADDER. PATIENT IS INCONTINENT WITH CLEAR, YELLOW URINE NOTED IN BRIEF. NO HEMATURIA NOTED THIS SHIFT. CALL LIGHT WITHIN REACH. ASPIRATION, FALL AND SAFETY PRECAUTIONS MAINTAINED. WILL ENDORSE PLAN OF CARE TO ONCOMING SHIFT.
[2020-08-07] MEDS: PANTOPRAZOLE 40 MG TABLET.DR PO SCH ×2 (07:30→07:53)
--- NOTE | 2020-08-07 07:30 | NUR ---
MS/RN NOTES PANTOPRAZOLE PATIENT HAS A DOUBLE ENTRY MEDICINE PANTOPRAZOLE 40MG TAB.
--- NOTE | 2020-08-07 07:40 | NUR ---
MS RN OPENING NOTES RECEIVED PATIENT ASLEEP IN BED BUT EASILY AROUSABLE WITH VERBAL AND TOUCH STIMULI. PATIENT IS A/O X1. PATIENT IS ON ROOM AIR AND IN NO RESPIRATORY DISTRESS. PATIENT HAS AN IV ACCESS ON HIS RIGHT AC G#18 WHICH IS INTACT AND PATENT ON SALINE LOCK. PATIENT HAS A PACEMAKER ON HIS LEFT CHEST. ALL SAFETY PRECAUTIONS ARE KEPT IN PLACE. SIDE RAILS UP X3. BED IS LOCKED. CALL LIGHT IS WITHIN REACH. WILL CONTINUE TO MONITOR THE PATIENT.
[2020-08-07] MEDS: ENSURE ENLIVE CHOC 237 ML CAN PO SCH ×2 (08:12→17:11)
[2020-08-07] MEDS: ENOXAPARIN SODIUM 60 MG/0.6 ML DISP.SYRIN SQ SCH ×2 (08:50→22:00)
[2020-08-07] MEDS: QUETIAPINE FUMARATE 25 MG TABLET PO SCH ×2 (08:53→17:09)
[2020-08-07] MEDS: MEMANTINE HCL 5 MG TABLET PO SCH (08:53)
[2020-08-07] MEDS: predniSONE 5 MG TABLET PO SCH (08:53)
[2020-08-07] MEDS: hydrALAZINE HCL 25 MG TABLET PO SCH ×2 (08:54→17:09)
[2020-08-07] MEDS: ESCITALOPRAM OXALATE (10 MG) 10 MG TABLET PO SCH (08:55)
[2020-08-07] MEDS: DONEPEZIL 5 MG TABLET PO SCH (08:55)
[2020-08-07] MEDS: CARVEDILOL 12.5 MG TABLET PO SCH ×3 (08:56→22:20)
[2020-08-07] MEDS: AMLODIPINE BESYLATE 5 MG TABLET PO SCH (08:56)
[2020-08-07] MEDS: LISINOPRIL (10MG) 10 MG TABLET PO SCH (08:57)
[2020-08-07 09:19] LABS: BASOPHILS % (AUTO) 0.7 % (0.0-2.0); EOSINOPHILS % (AUTO) 4.2 % (0.0-6.0); HEMATOCRIT 41 % (39-51); HEMOGLOBIN 13.5 g/dL (13.5-17.5); LYMPHOCYTES # (AUTO) 1.6 /CMM (0.8-4.8); LYMPHOCYTES % (AUTO) 25.1 % (20.0-44.0); MEAN CORPUSCULAR HGB CONC 33 g/dl (31.0-36.0); MEAN CORPUSCULAR VOLUME 90 fL (80-96); MONOCYTES # (AUTO) 0.5 /CMM (0.1-1.30); MONOCYTES % (AUTO) 8.1 % (2.0-12.0); NEUTROPHILS # (AUTO) 4.1 /CMM (1.8-8.9); NEUTROPHILS % (AUTO) 61.9 % (43.0-81.0); PLATELET COUNT (AUTO) 184 /CMM (150-450); RED BLOOD CELL COUNT(AUTO) 4.58 MIL/uL (4.5-6.0); WHITE BLOOD COUNT (AUTO) 6.5 K/uL (4.3-11.0)
[2020-08-07 09:35] LABS: BILIRUBIN,TOTAL 0.7 mg/dL (0.2-1.0); CALCIUM, SERUM 8.8 mg/dL (8.5-10.1); POTASSIUM 3.7 mmol/L (3.5-5.1); TOTAL PROTEIN, SERUM 7.2 g/dL (6.4-8.2)
--- NOTE | 2020-08-07 10:00 | NUR ---
MS/RN NOTES MED REFUSED ALL MORNING MEDS REFUSED BY PATIENT. ENCOURAGED 3X, REFUSED STILL. WILL CONTINUE TO MONITOR.
--- NOTE | 2020-08-07 11:56 | NUR ---
MS RN NOTES DR. BOSS CAME TO SEE PATIENT. NOTIFIED DR. BOSS THAT PATIENT REFUSED ALL MEDS TODAY. WILL CONTINUE TO MONITOR.
[2020-08-07] MEDS: WARFARIN SODIUM 2 MG TABLET PO SCH (17:11)
[2020-08-07 18:00] VITALS: BP 152/80
--- NOTE | 2020-08-07 18:49 | NUR ---
MS RN CLOSING NOTES: PATIENT IS AWAKE, ALERT AND ORIENTED X1. NON-VERBAL. IN ROOM AIR, NO SOB NOTED. NO S/S OF DISCOMFORTS NOTED AT THIS TIME. PACEMAKER ON LEFT CHEST. TAKES CRUSHED MEDS MIXED IN PUDDING, ABLE TO TAKE ALL EVENING MEDS. FOR G.I. CONSULT BEFORE DISCHARGE. BED WAS PLACE IN LOW POSITION, SIDE RAILS UP,CALL LIGHT WITHIN REACH, BED ALARM ON. ALL NEEDS MET AND ATTENDED. ALL ORDERS CARRIED OUT. WILL ENDORSE TO INCOMING SHIFT.
[2020-08-07 20:00] VITALS: BP 122/80
[2020-08-07] MEDS: TAMSULOSIN 0.4 MG CAP.SR.24H PO SCH (22:00)
--- NOTE | 2020-08-07 22:20 | NUR ---
ORAL EVENING MEDICATIONS HELD PATIENT IS TOO LETHARGIC TO SWALLOW SAFELY; ASPIRATION PRECAUTIONS IN PLACE. PATIENT AWAKENS TO PAIN BUT FALLS ASLEEP PRIOR TO SAFELY ADMINISTER MEDICATIONS. BS CHECKED PT BS IS 105. PT RESPONDS TO TOUCH; AWAKENS AND MUMBLES THEN APPEARS TO FALL BACK ASLEEP. SPO2 98% WILL CONT TO MONITOR.
--- NOTE | 2020-08-08 07:36 | NUR ---
MS RN OPENING NOTES RECEIVED PATIENT AWAKE IN BED WATCHING TV. PATIENT IS A/O X1. PATIENT ON ROOM AIR. PATIENT IS NON VERBAL BUT RESPONDS TO VOICE AND TOUCH. PATIENT HAS A PACEMAKER ON HIS LEFT CHEST. NO SIGNS OF PAIN OR DISTRESS NOTED. ALL SAFETY PRECAUTIONS KEPT IN PLACE. BED IS LOCKED WITH SIDE RAILS UP X3. CALL LIGHT IS WITHIN REACH. WILL CONTINUE TO MONITOR THE PATIENT.
[2020-08-08] MEDS: PANTOPRAZOLE 40 MG TABLET.DR PO SCH (07:48)
[2020-08-08 08:00] VITALS: BP 148/94
[2020-08-08] MEDS: ENSURE ENLIVE CHOC 237 ML CAN PO SCH ×2 (08:26→17:31)
[2020-08-08] MEDS: predniSONE 5 MG TABLET PO SCH (09:01)
[2020-08-08] MEDS: MEMANTINE HCL 5 MG TABLET PO SCH (09:02)
[2020-08-08] MEDS: DONEPEZIL 5 MG TABLET PO SCH (09:02)
[2020-08-08] MEDS: LISINOPRIL (10MG) 10 MG TABLET PO SCH (09:03)
[2020-08-08] MEDS: hydrALAZINE HCL 25 MG TABLET PO SCH ×2 (09:04→17:31)
[2020-08-08] MEDS: CARVEDILOL 12.5 MG TABLET PO SCH ×2 (09:04→20:06)
[2020-08-08] MEDS: AMLODIPINE BESYLATE 5 MG TABLET PO SCH (09:04)
[2020-08-08] MEDS: QUETIAPINE FUMARATE 25 MG TABLET PO SCH ×2 (09:05→17:30)
[2020-08-08] MEDS: ESCITALOPRAM OXALATE (10 MG) 10 MG TABLET PO SCH (09:05)
[2020-08-08] MEDS: ENOXAPARIN SODIUM 60 MG/0.6 ML DISP.SYRIN SQ SCH ×2 (09:06→20:22)
[2020-08-08 16:00] VITALS: BP 151/96
[2020-08-08] MEDS: WARFARIN SODIUM 2 MG TABLET PO SCH (17:30)
--- NOTE | 2020-08-08 18:50 | NUR ---
MS RN CLOSING NOTE PATIENT IS IN BED AWAKE. ALERT AND ORIENTED X 1. NON-VERBAL BUT RESPONDS TO VOICE AND TOUCH. NO SIGNS OR SYMPTOMS OF DISTRESS NOTED. NO SHORTNESS OF BREATH. ALL SAFETY MEASURES MAINTAINED. CALL LIGHT IS WITHIN REACH.
--- NOTE | 2020-08-08 19:44 | NUR ---
MS RN NOTES PATIENT IN BED WITH EYES CLOSED. R. AC IV ON SALINE LOCK. NO S/S OF DISTRESS. NO C/O OF PAIN AT THE MOMENT. NO C/O NAUSEA, VOMITING. SAFETY IN PLACE: BED IN LOWEST, LOCKED POSITION; CALL LIGHT WITHIN REACH. BOARD UPDATED. WILL CONTINUE TO MONITOR.
[2020-08-08 20:00] VITALS: BP 146/93
[2020-08-08] MEDS: TAMSULOSIN 0.4 MG CAP.SR.24H PO SCH (21:28)
[2020-08-08 23:29] VITALS: BP 146/93
--- NOTE | 2020-08-09 07:02 | NUR ---
RN CLOSING NOTES PATIENT IN BED. ALERT BUT NON-VERBAL. ALL SCHEDULED MEDS ADMINISTERED. NEEDS ATTENDED. NO S/S OF DISTRESS. NO C/O OF PAIN AT THE MOMENT. PATIENT TOLERATING PO INTAKE WELL. NO URINARY RETENTION, IN FACT PATIENT PEE'S A LOT. SAFETY KEPT IN PLACE THE WHOLE TIME: BED IN LOWEST, LOCKED POSITION; CALL LIGHT WITHIN REACH. NO SIGNIFICANT CHANGE SINCE LAST SHIFT. WILL ENDORSE CARE TO MORNING SHIFT NURSE.
--- NOTE | 2020-08-09 07:40 | NUR ---
S RN OPENING NOTES RECEIVED PATIENT AWAKE IN BED. PATIENT IS A/O X1. PATIENT ON ROOM AIR. PATIENT IS NON VERBAL BUT RESPONDS TO NAME, VOICE AND TOUCH. PATIENT HAS A PACEMAKER ON HIS LEFT CHEST. NO SIGNS OF PAIN OR DISTRESS NOTED. ALL SAFETY PRECAUTIONS KEPT IN PLACE. BED IS LOCKED WITH SIDE RAILS UP X3. CALL LIGHT IS WITHIN REACH. WILL CONTINUE TO MONITOR THE PATIENT THROUGHOUT SHIFT
[2020-08-09] MEDS: PANTOPRAZOLE 40 MG TABLET.DR PO SCH (07:43)
[2020-08-09 08:00] VITALS: BP 131/94
[2020-08-09] MEDS: ENSURE ENLIVE CHOC 237 ML CAN PO SCH ×2 (08:34→16:51)
[2020-08-09] MEDS: hydrALAZINE HCL 25 MG TABLET PO SCH ×2 (08:47→16:48)
[2020-08-09] MEDS: MEMANTINE HCL 5 MG TABLET PO SCH (08:47)
[2020-08-09] MEDS: DONEPEZIL 5 MG TABLET PO SCH (08:48)
[2020-08-09] MEDS: AMLODIPINE BESYLATE 5 MG TABLET PO SCH (08:48)
[2020-08-09] MEDS: ESCITALOPRAM OXALATE (10 MG) 10 MG TABLET PO SCH (08:49)
[2020-08-09] MEDS: predniSONE 5 MG TABLET PO SCH (08:49)
[2020-08-09] MEDS: QUETIAPINE FUMARATE 25 MG TABLET PO SCH ×2 (08:49→16:48)
[2020-08-09] MEDS: LISINOPRIL (10MG) 10 MG TABLET PO SCH (08:49)
[2020-08-09] MEDS: CARVEDILOL 12.5 MG TABLET PO SCH (08:49)
[2020-08-09 08:58] LABS: BASOPHILS % (AUTO) 0.5 % (0.0-2.0); EOSINOPHILS % (AUTO) 5.9 % (0.0-6.0); HEMATOCRIT 41 % (39-51); HEMOGLOBIN 13.3 g/dL (13.5-17.5); LYMPHOCYTES # (AUTO) 1.6 /CMM (0.8-4.8); LYMPHOCYTES % (AUTO) 25.9 % (20.0-44.0); MEAN CORPUSCULAR HGB CONC 33 g/dl (31.0-36.0); MEAN CORPUSCULAR VOLUME 90 fL (80-96); MONOCYTES # (AUTO) 0.5 /CMM (0.1-1.30); MONOCYTES % (AUTO) 8.6 % (2.0-12.0); NEUTROPHILS # (AUTO) 3.6 /CMM (1.8-8.9); NEUTROPHILS % (AUTO) 59.1 % (43.0-81.0); PLATELET COUNT (AUTO) 190 /CMM (150-450); RED BLOOD CELL COUNT(AUTO) 4.51 MIL/uL (4.5-6.0)
[2020-08-09 09:11] LABS: CALCIUM, SERUM 8.6 mg/dL (8.5-10.1); CREATININE 1.1 mg/dL (0.6-1.3); MAGNESIUM 1.9 mg/dL (1.8-2.4); PHOSPHORUS 3.1 mg/dL (2.5-4.9); POTASSIUM 3.5 mmol/L (3.5-5.1)
[2020-08-09] MEDS: ENOXAPARIN SODIUM 60 MG/0.6 ML DISP.SYRIN SQ SCH (09:37)
--- NOTE | 2020-08-09 10:19 | NUR ---
ELIZABETH RECEIVED FROM DR. BOSS OF PT WITH INR, CAN ADD TO AM LABS. ORDERS CLARIFIED, READ BACK AND CARRIED OUT.
--- NOTE | 2020-08-09 14:39 | NUR ---
PATIENT IS AWAKE IN BED. NO SIGNS OR SYMPTOMS OF DISTRESS NOTED. CALL LIGHT IS WITHIN REACH. SAFETY MEASURES KEPT IN PLACE. WILL CONTINUE TO ATTEND TO NEEDS. WILL CONTINUE TO MONITOR
[2020-08-09 16:00] VITALS: BP 148/86
[2020-08-09 16:48] VITALS: BP 148/76
[2020-08-09] MEDS: WARFARIN SODIUM 2 MG TABLET PO SCH (16:50)
--- NOTE | 2020-08-09 18:10 | NUR ---
SLAB POLISHER NOTES PATIENT DISCHARGED HOME WITH STABLE VITAL SIGNS. NO ACUTE DISTRESS NOTED. NO SHORTNESS OF BREATH NOTED. BREATHING UNLABORED. DENIED ANY PAIN AT THIS TIME. DISCHARGE INSTRUCTIONS GIVEN TO THE DAUGHTER, VERBALIZED UNDERSTANDING. IV ACCESS REMOVED, NO REDNESS, NO SWELLING, NO BLEEDING NOTED. NEEDS ATTENDED AND ANTICIPATED. ASSISTED TO THE LOBBY ,PICKED UP VIA PRIVATE CAR ACCOMPANIED BY DAUGHTER IN STABLE CONDITION. ALL BELONGINGS ACCOUNTED FOR.
== END 2020-08-09 19:03 | disposition hospice, home (50) | DRG 695 ==
LOC: ER 16:37 → TELE 21:36 → MED 08-05 10:51
PROVIDERS: ADMIT Legal Medicine; ATTEND Legal Medicine
DX: R31.9 Hematuria, unspecified (principal); G93.41 Metabolic encephalopathy; D68.59 Other primary thrombophilia; I13.0 Hypertensive heart and chronic kidney disease with heart failure and stage 1 through stage 4 chronic kidney disease, or unspecified chronic kidney disease; D68.32 Hemorrhagic disorder due to extrinsic circulating anticoagulants; N17.0 Acute kidney failure with tubular necrosis; N20.0 Calculus of kidney; G30.9 Alzheimer's disease, unspecified; F02.80 Dementia in other diseases classified elsewhere, unspecified severity, without behavioral disturbance, psychotic disturbance, mood disturbance, and anxiety; N40.0 Benign prostatic hyperplasia without lower urinary tract symptoms; I25.10 Atherosclerotic heart disease of native coronary artery without angina pectoris; I50.9 Heart failure, unspecified; K80.20 Calculus of gallbladder without cholecystitis without obstruction; K21.9 Gastro-esophageal reflux disease without esophagitis; F32.9 Major depressive disorder, single episode, unspecified; Z86.73 Personal history of transient ischemic attack (TIA), and cerebral infarction without residual deficits; Z74.01 Bed confinement status; Z95.1 Presence of aortocoronary bypass graft; Z95.2 Presence of prosthetic heart valve; Z95.0 Presence of cardiac pacemaker; E78.5 Hyperlipidemia, unspecified; F41.9 Anxiety disorder, unspecified; I48.91 Unspecified atrial fibrillation; N18.30 Chronic kidney disease, stage 3 unspecified; Z79.899 Other long term (current) drug therapy; Z91.013 Allergy to seafood; Z79.01 Long term (current) use of anticoagulants; Z86.79 Personal history of other diseases of the circulatory system; F09 Unspecified mental disorder due to known physiological condition; I25.5 Ischemic cardiomyopathy; I73.9 Peripheral vascular disease, unspecified; N28.1 Cyst of kidney, acquired; N43.3 Hydrocele, unspecified; T45.515A Adverse effect of anticoagulants, initial encounter; Y92.129 Unspecified place in nursing home as the place of occurrence of the external cause
CPT/HCPCS: 36415; 71045-TC; 80048-TC; 80053-TC; 80076-TC; 81001; 82962-TC; 83690-TC; 83735-TC; 84100-TC; 84484-TC; 85025-TC; 85610-TC; 85730-TC; 87081-TC; 87086-TC; 93307-TC; C9132; C9803; G0378; J0696; J1650; J1885; J2405; J3430; J7030; J7060; J7512

== ENCOUNTER 2020-11-01 22:52 | Inpatient (IN) | payer MEDICARE, OTHER ==
[~2020-11-01] VITALS: Ht 172.7 cm; Wt 58.6 kg
[~2020-11-01 22:52] MED LIST changes: -ASCO-352 PO; -ATOR40TA PO; +DONE10TA44 PO; -DONE5TAB7 PO; -ERGO500014 PO; +ERGO500093 PO; -FURO-145 PO; -ZINC1CAP2 PO
--- NOTE | 2020-11-01 23:00 | NUR ---
Patient came to the ER bed 8 from home c/o shortness of breath and tachypnea. patient is alert and oriented X0. Patient is non-verbal. Patient does understand Israeli. Hx of dementia. Patient on arrival is 95% 02 saturation on room air. Pt. connected to the monitor.
[2020-11-01] MEDS ORDERED: LIDOCAINE 2% JEL UROJET 10 ML MM ONE ×2 (23:02→23:30)
--- NOTE | 2020-11-01 23:19 | NUR ---
Patient is cleaned and placed into a clean gown.
[2020-11-01] MEDS ORDERED: CEFTRIAXONE 1GM BAG (ER ONLY) 50 ML IV ONE (23:24)
[2020-11-01] MEDS ORDERED: AZITHROMYCIN 500 MG VIAL ONE ×2 (23:24→23:59)
[2020-11-01] MEDS ORDERED: ACETAMINOPHEN 650 MG/SUPP.RECT RC ONE ×2 (23:25→23:30)
[2020-11-01] MEDS ORDERED: AZITHROMYCIN 500 MG in IV D5W 250 ML IV ONE (23:30)
[2020-11-01] MEDS ORDERED: CEFTRIAXONE 1GM BAG (ER ONLY) 1 GM/50 ML PIGGYBACK IV ONE (23:30)
[2020-11-01 23:35] LABS: BASOPHILS % (AUTO) 0.3 % (0.0-2.0); EOSINOPHILS % (AUTO) 1.1 % (0.0-6.0); HEMATOCRIT 40 % (39-51); HEMOGLOBIN 13.1 g/dL (13.5-17.5); LYMPHOCYTES # (AUTO) 1.4 K/uL (0.8-4.8); MEAN CORPUSCULAR HGB CONC 33 g/dl (31.0-36.0); MEAN CORPUSCULAR VOLUME 89 fL (80-96); MONOCYTES # (AUTO) 1.1 K/uL (0.1-1.30); MONOCYTES % (AUTO) 9.7 % (2.0-12.0); NEUTROPHILS # (AUTO) 8.3 K/uL (1.8-8.9); NEUTROPHILS % (AUTO) 75.9 % (43.0-81.0); PLATELET COUNT (AUTO) 175 K/uL (150-450); RED BLOOD CELL COUNT(AUTO) 4.44 MIL/uL (4.5-6.0); WHITE BLOOD COUNT (AUTO) 10.9 K/uL (4.3-11.0)
[2020-11-01] MEDS ORDERED: ASPIRIN 300 MG/SUPP.RECT RC ONE (23:59)
[2020-11-02] VITALS (10 sets, daily range): BP systolic 65–124; BP diastolic 41–70
[2020-11-02] MEDS ORDERED: ASPIRIN 300 MG/SUPP.RECT RC ONE
--- NOTE | 2020-11-02 00:01 | NUR ---
DR. BOSS PAGED PER ER ORDER.
[2020-11-02 00:03] LABS: BILIRUBIN,URINE SMALL (NEGATIVE); COLOR,URINE AMBER (YELLOW); LEUKOCYTE ESTERASE ,URINE NEGATIVE (NEGATIVE); NITRITE, URINE NEGATIVE (NEGATIVE); PH,URINE 5.5 (5.0-8.0); PROTEIN,URINE 30 mg/dl (NEGATIVE); UGLUCOSE NEGATIVE (NEGATIVE)
[2020-11-02 00:17] LABS: BACTERIA,URINE None seen /HPF (None Seen); MUCUS,URINE Few /LPF (None Seen); RBC,URINE 81-100 /HPF (0-2); SQUAMOUS EPITHELIAL CELL,UR Rare /HPF (None Seen)
[2020-11-02 00:22] LABS: CALCIUM, SERUM 7.8 mg/dL (8.5-10.1); CARBON DIOXIDE 18 mmol/L (21-32); CHLORIDE 116 mmol/L (98-107); CREATININE 1.5 mg/dL (0.6-1.3); GLUCOSE 124 mg/dL (74-106); POTASSIUM 3.6 mmol/L (3.5-5.1); SODIUM SERUM 151 mmol/L (136-145); UREA NITROGEN, BLOOD 34 mg/dL (7-18)
[2020-11-02 00:34] LABS: ALANINE AMINOTRANSFERASE 28 U/L (12-78); ALBUMIN 2.7 g/dL (3.4-5.0); ALKALINE PHOSPHATASE 182 U/L (46-116); ASPARTATE AMINOTRANSFERASE 27 U/L (15-37); BILIRUBIN,DIRECT 0.5 mg/dL (0.0-0.2); BILIRUBIN,TOTAL 1.1 mg/dL (0.2-1.0); TOTAL PROTEIN, SERUM 6.8 g/dL (6.4-8.2)
--- NOTE | 2020-11-02 00:35 | NUR ---
Patient is provided with cleaning and sheets are changed. Given a new gown.
--- NOTE | 2020-11-02 00:57 | NUR ---
DR. BOSS PAGED PER ER ORDER.
--- NOTE | 2020-11-02 01:10 | NUR ---
ER MD SPOKE TO DR. BOSS REGARDING PT ADMISSION WITH ADMISSION ORDERS RECEIVED.
--- NOTE | 2020-11-02 01:13 | NUR ---
TELE 119-1
--- NOTE | 2020-11-02 01:27 | NUR ---
REPORT CALLED TO CARPENTER AND JOINERGOPAL AHUMADA. WILL TRANSPORT PT VIA ACLS PROTOCOL.
[2020-11-02] MEDS ORDERED: FUROSEMIDE 20 MG/2 ML VIAL IV SCH (01:30)
--- NOTE | 2020-11-02 01:54 | NUR ---
Patient is provided with pericare and placed into a clean gown
--- NOTE | 2020-11-02 02:07 | NUR ---
patient taken up to assigned floor.
[2020-11-02] MEDS ORDERED: FUROSEMIDE 20 MG/2 ML VIAL ONE (02:09)
[2020-11-02] MEDS ORDERED: ACETAMINOPHEN 325 MG TABLET PO PRN (02:30)
[2020-11-02] MEDS ORDERED: ONDANSETRON HCL/PF 4 MG/2 ML VIAL IV PRN (02:30)
[2020-11-02] MEDS ORDERED: PANTOPRAZOLE 40 MG VIAL IV SCH (06:00)
--- NOTE | 2020-11-02 06:36 | NUR ---
RN notes Admitted an 80 year old male from ER via stretcher in stable condition with diagnosis of PNA/UTI. Alert and cooperative. No physical manifestation of pain or discomfort. NO distess noted. On room air well tolerated. Vital signs wnl. Kept clean and dry. Will endorse to next shift for continuity of care.
[2020-11-02 06:43] LABS: BASOPHILS % (AUTO) 0.3 % (0.0-2.0); EOSINOPHILS % (AUTO) 1.4 % (0.0-6.0); HEMATOCRIT 40 % (39-51); LYMPHOCYTES # (AUTO) 1.9 K/uL (0.8-4.8); LYMPHOCYTES % (AUTO) 15.1 % (20.0-44.0); MEAN CORPUSCULAR HGB CONC 33 g/dl (31.0-36.0); MEAN CORPUSCULAR VOLUME 90 fL (80-96); MONOCYTES # (AUTO) 1.2 K/uL (0.1-1.30); MONOCYTES % (AUTO) 9.8 % (2.0-12.0); NEUTROPHILS # (AUTO) 9.3 K/uL (1.8-8.9); NEUTROPHILS % (AUTO) 73.4 % (43.0-81.0); PLATELET COUNT (AUTO) 151 K/uL (150-450); RED BLOOD CELL COUNT(AUTO) 4.41 MIL/uL (4.5-6.0); WHITE BLOOD COUNT (AUTO) 12.6 K/uL (4.3-11.0)
[2020-11-02 07:05] LABS: CALCIUM, SERUM 8.2 mg/dL (8.5-10.1); CARBON DIOXIDE 22 mmol/L (21-32); CHLORIDE 115 mmol/L (98-107); CREATININE 1.5 mg/dL (0.6-1.3); GLUCOSE 112 mg/dL (74-106); POTASSIUM 3.4 mmol/L (3.5-5.1); SODIUM SERUM 150 mmol/L (136-145); UREA NITROGEN, BLOOD 36 mg/dL (7-18)
--- NOTE | 2020-11-02 07:15 | NUR ---
RN OPENING NOTE Received patient asleep in bed appears calm and relaxed no signs of distress. Patient on room air tolerating well. Patient opens eyes but non verbal. Follows commands. Tele reading SR permanent pacemaker. Has R AC #20 saline lock flushes well. No signs of pain or discomfort. safety measures maintaned. Call light within reach. Will cont to monitor.
[2020-11-02] MEDS ORDERED: POTASSIUM CHLORIDE 10 MEQ TABLET.SA PO ONE (09:00)
[2020-11-02] MEDS ORDERED: IV D5W 1,000 ML IV PRN (12:00)
[2020-11-02] MEDS ORDERED: LORAZEPAM 1 MG TABLET PO PRN (12:00)
[2020-11-02] MEDS: QUETIAPINE FUMARATE 25 MG TABLET PO SCH (16:46)
[2020-11-02] MEDS: WARFARIN SODIUM 2 MG TABLET PO SCH (16:48)
[2020-11-02] MEDS ORDERED: hydrALAZINE HCL 25 MG TABLET PO SCH (17:00)
--- NOTE | 2020-11-02 17:19 | NUR ---
Report given to Lilia for hoda. Patient in bed no signs of distress. All due meds given,
--- NOTE | 2020-11-02 19:15 | NUR ---
RN NOTES ALL NEEDS MET. PATIENT RESTING COMFORTABLY NOT IN ANY DISTRESS. CALL LIGHT WITHIN REACH. SAFETY MEASURES IN PLACE. WILL ENDORSE TO NEXT SHIFT FOR KRISTINA.
--- NOTE | 2020-11-02 21:25 | NUR ---
RN NOTES HR 170'S WITH RUNS 3MINS RUNS OF VTACH PATIENT IN NO DISTRESS WHEN CHECKED; BP 85/48 ON 3L NC . PRIMARY RN ARNULFO MADE AWARE TO CALL
[2020-11-02] MEDS: TAMSULOSIN 0.4 MG CAP.SR.24H PO SCH (21:41)
[2020-11-02] MEDS: CARVEDILOL 12.5 MG TABLET PO SCH (21:41)
[2020-11-02] MEDS ORDERED: IV NS 0.9% 500 ML IV ONE (22:30)
--- NOTE | 2020-11-02 22:57 | NUR ---
RN NOTES 0 EKG DONE; NOTIFIED DR. BOSS; ALSO INFORMED THAT PATIENT IS HAVING RUNS OF VTACH AGAIN WITH 163 HR; BP85/49- 99/49; ORDERS CARRIED OUT. PRIMARY RN ARNULFO MADE AWARE; CALLED ICU CRN TO CHECK ON PATIENT AND BROADCAST SUPERVISOR RICK. 2231 LABS ORDERED; BOLUS STARTED; TRANSFERRED TO ICU. CALLED CHRIS DRISCOLL AND NOTIFIED OF THE ABOVE; PROVIDED WITH ICU ROOM NUMBER AND PHONE NUMBER TO CALL
[2020-11-02 23:09] LABS: ABG BASE EXCESS -6.7 mmol/L; ABG OXYGEN SATURATION 97.7 % (92.0-98.5); ABG PCO2 27.1 mmHg (35.0-45.0); ABG PH 7.404 (7.350-7.450); AaDO2 122.2 mmHg; COHb 0.4 % (0.5-1.5); MetHb 0.1 % (0.0-1.5); O2Hb 97.2 % (94.0-97.0); SITE, ABG Left Radial; VENT MODE, BG NC 4LPM
[2020-11-02] MEDS: CEFTRIAXONE 1 G in IV D5W 50 ML IV SCH (23:09)
--- NOTE | 2020-11-02 23:18 | NUR ---
RN notes Received patient awake in bed with shortness of breath, vital signs taken O2sat 89-90%. Administered O2 at 3lpm via nasal cannula, tolerated well. Noted with episode of tachycardia 10-180bpm for about 3 minutes, cardiac reading SR with BBB and episodes VTACH. Noted with bowel movement x 2, soft and brown. Called Dr. Carbajal and obtained order for ECG and to transfer to ICU. Noted and carried out .Endorse to RN in charge Radha.
[2020-11-02] MEDS ORDERED: AMIODARONE 150 MG/3 ML VIAL IV ONE (23:23)
[2020-11-02] MEDS ORDERED: PHENYLEPHRINE 10 MG/ML VIAL ONE (23:24)
[2020-11-02] MEDS: AZITHROMYCIN 500 MG in IV D5W 250 ML IV SCH (23:29)
[2020-11-02] MEDS ORDERED: AMIODARONE 150 MG in IV D5W 100 ML IV ONE (23:30)
--- NOTE | 2020-11-02 23:40 | NUR ---
RN NOTE NEOSYNEPHRINE 0.5 MCG/KG/MIN STARTED. PT BLOOD PRESSURE 84/46, HR 85. WILL CONTINUE TO MONITOR PT
[2020-11-02] MEDS: PHENYLEPHRINE 50 MG in IV NS 0.9% 245 ML IV PRN (23:41)
--- NOTE | 2020-11-02 23:52 | NUR ---
RN NOTE HERNANDEZ CATHETER INSERTED PER MD ORDER, PT VOIDED 400 ML OF URINE. FAMILY AT BEDSIDE
[2020-11-02 23:59] LABS: CHLORIDE 115 mmol/L (98-107); POTASSIUM 3.5 mmol/L (3.5-5.1); SODIUM SERUM 147 mmol/L (136-145)
[2020-11-03] VITALS (76 sets, daily range): BP systolic 76–118; BP diastolic 44–72
[2020-11-03] LABS: CALCIUM, SERUM 7.4 mg/dL (8.5-10.1); CARBON DIOXIDE 22 mmol/L (21-32); CREATININE 1.5 mg/dL (0.6-1.3); GLUCOSE 166 mg/dL (74-106); UREA NITROGEN, BLOOD 39 mg/dL (7-18)
--- NOTE | 2020-11-03 | NUR ---
RN NOTE AMIODARONE BOLUS STARTED BY CHARGE NURSE
[2020-11-03 00:02] LABS: BILIRUBIN,TOTAL 0.8 mg/dL (0.2-1.0)
[2020-11-03 00:03] LABS: ALANINE AMINOTRANSFERASE 20 U/L (12-78); ALBUMIN 2.2 g/dL (3.4-5.0); ALKALINE PHOSPHATASE 188 U/L (46-116); ASPARTATE AMINOTRANSFERASE 34 U/L (15-37); TOTAL PROTEIN, SERUM 6.1 g/dL (6.4-8.2)
[2020-11-03] MEDS: AMIODARONE 450 MG in IV D5W 241 ML IV PRN ×2 (00:12→07:11)
--- NOTE | 2020-11-03 00:15 | NUR ---
RN NOTE AMIO 1MG STARTED HR 88 BPM BP 102/70. WILL CONT. TO MONITOR PT
[2020-11-03 05:32] LABS: BASOPHILS % (AUTO) 0.2 % (0.0-2.0); EOSINOPHILS % (AUTO) 4.8 % (0.0-6.0); HEMATOCRIT 36 % (39-51); HEMOGLOBIN 11.7 g/dL (13.5-17.5); LYMPHOCYTES # (AUTO) 1.7 K/uL (0.8-4.8); LYMPHOCYTES % (AUTO) 12.9 % (20.0-44.0); MEAN CORPUSCULAR HGB CONC 33 g/dl (31.0-36.0); MEAN CORPUSCULAR VOLUME 90 fL (80-96); MONOCYTES # (AUTO) 1.2 K/uL (0.1-1.30); MONOCYTES % (AUTO) 8.7 % (2.0-12.0); NEUTROPHILS # (AUTO) 9.7 K/uL (1.8-8.9); NEUTROPHILS % (AUTO) 73.4 % (43.0-81.0); PLATELET COUNT (AUTO) 158 K/uL (150-450); RED BLOOD CELL COUNT(AUTO) 4.01 MIL/uL (4.5-6.0); WHITE BLOOD COUNT (AUTO) 13.3 K/uL (4.3-11.0)
[2020-11-03 05:41] LABS: CALCIUM, SERUM 7.6 mg/dL (8.5-10.1); CARBON DIOXIDE 25 mmol/L (21-32); CHLORIDE 114 mmol/L (98-107); CREATININE 1.4 mg/dL (0.6-1.3); GLUCOSE 108 mg/dL (74-106); MAGNESIUM 2.1 mg/dL (1.8-2.4); SODIUM SERUM 148 mmol/L (136-145); UREA NITROGEN, BLOOD 36 mg/dL (7-18)
--- NOTE | 2020-11-03 06:12 | NUR ---
RN NOTE AMIDARONE 1MG X 6 HRS COMPLETED. CHARGE NURSE SPOKE TO PHARMACY ([facility]) FOR NEW BAG.
--- NOTE | 2020-11-03 07:15 | NUR ---
RN notes RECEIVED PATIENT IN RESTING COMFORTABLY IN MODERATE HIGH BACK REST. A/O X1. ON OXYGEN 3LPM VIA NC, NO SIGNS OF DISTRESS NOTED AT THIS TIME. IV ACCESS ON RAC #20 WITH AMIO RUNNING @16.6 ML/HR, SAFETY MEASURES MAINTAINED, COVID TEST STILL PENDING, WILL CONTINUE TO MONITOR.
--- NOTE | 2020-11-03 07:23 | NUR ---
RN NOTE PT REMAINED STABLE HR IN THE 60-70'S, AMIO 0.5 MCG/KG/MIN X 18HRS STARTED. REPORT GIVEN TO AM RN FOR KRISTINA
[2020-11-03] MEDS: PANTOPRAZOLE 40 MG TABLET.DR PO SCH ×2 (07:30→08:39)
[2020-11-03] MEDS: CARVEDILOL 12.5 MG TABLET PO SCH (08:20)
[2020-11-03] MEDS: Potassium Chloride 20 MEQ in IV D5W 1,000 ML IV SCH (08:38)
[2020-11-03] MEDS: DONEPEZIL 5 MG TABLET PO SCH ×2 (08:39→09:00)
[2020-11-03] MEDS: QUETIAPINE FUMARATE 25 MG TABLET PO SCH ×3 (08:39→16:51)
[2020-11-03] MEDS: predniSONE 5 MG TABLET PO SCH ×2 (08:39→09:00)
[2020-11-03] MEDS: MEMANTINE HCL 5 MG TABLET PO SCH ×2 (08:39→09:00)
[2020-11-03] MEDS: ESCITALOPRAM OXALATE (10 MG) 10 MG TABLET PO SCH ×2 (08:39→09:00)
[2020-11-03] MEDS ORDERED: AMLODIPINE BESYLATE 5 MG TABLET PO SCH (09:00)
[2020-11-03] MEDS ORDERED: Medication Not On Formulary EA (Linaclotide (Linzess) 145 MCG) PO SCH (09:00)
[2020-11-03] MEDS ORDERED: LISINOPRIL (10MG) 10 MG TABLET PO SCH (09:00)
--- NOTE | 2020-11-03 09:00 | NUR ---
LOG CUTTER NOTES PATIENT A/O X1, SPIT OUT EVERYTHING INCLUDING AM MEDS.
[2020-11-03] MEDS: POTASSIUM CL. PREMIX PERIPHER. 50 ML IV SCH ×2 (10:58→12:03)
[2020-11-03] MEDS ORDERED: FUROSEMIDE 20 MG/2 ML VIAL IV ONE (11:00)
[2020-11-03] MEDS: ENOXAPARIN SODIUM 60 MG/0.6 ML DISP.SYRIN SQ SCH ×2 (11:05→22:05)
--- NOTE | 2020-11-03 13:00 | NUR ---
rn cardiovascular icu notes patient refused to eat lunch, trying to spit out food that was given. will continue to monitor. MD aware,
[2020-11-03] MEDS: WARFARIN SODIUM 2 MG TABLET PO SCH (16:52)
--- NOTE | 2020-11-03 17:00 | NUR ---
agriculture inspector notes endorse to nilsa mendez.
--- NOTE | 2020-11-03 20:00 | NUR ---
STRANDING MACHINE OPERATOR HELPER. INITIAL ASSESSMENT, RECEIVED THE PT REST ON THE BED. AWAKE, DOES NOT FOLLOW COMMANDS. NOT SPEAK. [id number] VIA NASAL CANNULA. SAT 96%. MONORAIL CRANE OPERATOR SHOWING NSR , PACEMAKER INTACT. NOT SPIKING. HOB ELEVATED,FC PATENT.URINE DRAINING, WILL CONTINUE TO MONITOR
[2020-11-03] MEDS: TAMSULOSIN 0.4 MG CAP.SR.24H PO SCH (22:04)
[2020-11-03] MEDS: AZITHROMYCIN 500 MG in IV D5W 250 ML IV SCH (23:55)
[2020-11-04] VITALS (70 sets, daily range): BP systolic 92–123; BP diastolic 45–73
--- NOTE | 2020-11-04 | NUR ---
PLATEN PRESS FEEDER.REMAINING SAME OXYGEN ON. SHELL SHOP SUPERVISOR SHOWING NSR,IV RT UPPER ARM MID LINE.IVF IN D5W IN. TURN AND REPOSITION Q2H.
[2020-11-04] MEDS ORDERED: CEFTRIAXONE 1 G VIAL ONE (00:01)
[2020-11-04] MEDS: CEFTRIAXONE 1 G in IV D5W 50 ML IV SCH ×2 (00:03→23:09)
[2020-11-04] MEDS ORDERED: PHENYLEPHRINE 10 MG/ML VIAL ONE (00:14)
[2020-11-04] MEDS: PHENYLEPHRINE 50 MG in IV NS 0.9% 245 ML IV PRN (00:23)
[2020-11-04] MEDS: Potassium Chloride 20 MEQ in IV D5W 1,000 ML IV SCH ×2 (00:41→16:10)
[2020-11-04 04:46] LABS: BASOPHILS % (AUTO) 0.2 % (0.0-2.0); EOSINOPHILS % (AUTO) 2.9 % (0.0-6.0); HEMATOCRIT 26 % (39-51); HEMOGLOBIN 8.7 g/dL (13.5-17.5); LYMPHOCYTES # (AUTO) 1.3 K/uL (0.8-4.8); LYMPHOCYTES % (AUTO) 14.2 % (20.0-44.0); MEAN CORPUSCULAR HGB CONC 33 g/dl (31.0-36.0); MEAN CORPUSCULAR VOLUME 90 fL (80-96); MONOCYTES # (AUTO) 0.8 K/uL (0.1-1.30); MONOCYTES % (AUTO) 8.3 % (2.0-12.0); NEUTROPHILS # (AUTO) 6.9 K/uL (1.8-8.9); NEUTROPHILS % (AUTO) 74.4 % (43.0-81.0); PLATELET COUNT (AUTO) 122 K/uL (150-450); RED BLOOD CELL COUNT(AUTO) 2.92 MIL/uL (4.5-6.0); WHITE BLOOD COUNT (AUTO) 9.3 K/uL (4.3-11.0)
--- NOTE | 2020-11-04 04:53 | NUR ---
PIERCER OPERATOR. AM CARE GIVEN. REMAINING SAMEOXYGEN ON. DIRECTOR TRADE SHOWING NSR,IV RT UPPER rm mid line.ivf d5win k 20 meq @ 65 ml/h. fc patent, urine draininh.fc patent. will continue to monitor vitals.
[2020-11-04 06:02] LABS: CALCIUM, SERUM 7.6 mg/dL (8.5-10.1); CARBON DIOXIDE 24 mmol/L (21-32); CHLORIDE 111 mmol/L (98-107); CREATININE 1.5 mg/dL (0.6-1.3); GLUCOSE 116 mg/dL (74-106); MAGNESIUM 1.9 mg/dL (1.8-2.4); POTASSIUM 3.7 mmol/L (3.5-5.1); SODIUM SERUM 144 mmol/L (136-145); UREA NITROGEN, BLOOD 35 mg/dL (7-18)
--- NOTE | 2020-11-04 07:30 | NUR ---
MINE ENVIRONMENTAL ENGINEER OPENING NOTE RECEIVED REPORT FROM PM NURSE.PATIENT IN THE BED. AWAKE, DOES NOT FOLLOW COMMANDS. DO NOT SPEAK. [id number] VIA NASAL CANNULA. SAT 95%. NO SOB NO DISTRESS NOTED.VP [employer] SHOWING NSR , PACEMAKER LEFT UPPER CHEST WALL. HOB ELEVATED,FC PATENT DARK YELLOW URINE DRAINING.ALL SAFETY AND ASPIRATION MEASURES IN PLACE.ON JOYCE FOR BLOOD PRESSURE MAINTENANCE BED S LOW AND IN LOCKED POSITION.CALL LIGHT ON REACH.BED ALARM ON .SRX3.WILL CONTINUE TO MONITOR.
[2020-11-04] MEDS: CARVEDILOL 3.125 MG TABLET PO SCH ×2 (09:07→21:00)
[2020-11-04] MEDS: DONEPEZIL 5 MG TABLET PO SCH (09:07)
[2020-11-04] MEDS: predniSONE 5 MG TABLET PO SCH (09:07)
[2020-11-04] MEDS: QUETIAPINE FUMARATE 25 MG TABLET PO SCH ×2 (09:07→16:11)
[2020-11-04] MEDS: ESCITALOPRAM OXALATE (10 MG) 10 MG TABLET PO SCH (09:07)
[2020-11-04] MEDS: PANTOPRAZOLE 40 MG TABLET.DR PO SCH (09:07)
[2020-11-04] MEDS: MEMANTINE HCL 5 MG TABLET PO SCH (09:07)
--- NOTE | 2020-11-04 10:22 | NUR ---
NEWS TECHNICAL DIRECTOR NOTE MADE AWARE ABOUT PATIENT PLATELET LEVEL AND ON COUMADIN AND LOVENOX.OK TO GIVE LOVENOX BECAUSE OF INR SUB THERAPEUTIC LEVEL.
[2020-11-04] MEDS: ENOXAPARIN SODIUM 60 MG/0.6 ML DISP.SYRIN SQ SCH ×2 (10:30→21:05)
[2020-11-04] MEDS ORDERED: POTASSIUM CHLORIDE 20 MEQ POWDER PACKET GT SCH (12:00)
[2020-11-04] MEDS ORDERED: POTASSIUM CHLORIDE 20 MEQ POWDER PACKET PO ONE (13:30)
--- NOTE | 2020-11-04 14:00 | NUR ---
LSW NOTE RECEIVED NEW ORDER FROM FOR POTASSIUM 60MEQ.VERIFIED WITH PHARMACY AND PATENT K LEVEL 3.7 AND ON KCL 20MEQ WITH D5W 65ML/HR. WANT TO KEEP K ABOVE 4.0.PLACED NEW ORDERS FOR POTASSIUM 40MEQ X1 DOSE AND PHARMACY MADE AWARE.
[2020-11-04] MEDS: WARFARIN SODIUM 2.5 MG TABLET PO SCH (16:12)
--- NOTE | 2020-11-04 19:45 | NUR ---
EARRINGS FABRICATOR CLOSING NOTE ENDORSED TO PM NURSE FOR KRISTINA.ON JOYCE.PATIENT IS AWAKE AND NOT FOLLOWING COMMANDS.ALEJANDRINA SPEAR MADE AWARE ABOUT FAMILY REQUEST TO CALL.FAMILY VISITED.DAUGHTER IS HAPPY WITH CARE AND ABLE TO SPOKE TO DOCTOR.ENDORSED TO PM NURSE FOR KRISTINA.
--- NOTE | 2020-11-04 20:00 | NUR ---
INTERNAL CONTROLS ANALYST NOTES, RECEIVED PATIENT IN BED, AWAKE A/O TO SELF, NO VERBAL AT THIS TIME, DOES NOT FOLLOW COMMANDS, ON 3LPM VIA NC, BREATHING EVEN AND UNLABORED, NO SOB/ACUTE DISTRESS NOTED AT THIS TIME, WITH O2 SAT LEVEL 95% AT THIS TIME, NSR CARDIAC IN MONITOR AT THIS TIME, FC IN PLACED, DRAINING YELLOW COLORED URINE, PATENCY INTACT, ALL SAFETY MEASURES IN PLACED, CALL LIGHT W/I REACH, WILL CONTINUE TO MONITOR CLOSELY.
[2020-11-04] MEDS: TAMSULOSIN 0.4 MG CAP.SR.24H PO SCH (21:07)
[2020-11-04] MEDS: AZITHROMYCIN 500 MG in IV D5W 250 ML IV SCH (23:35)
[2020-11-05] VITALS (30 sets, daily range): BP systolic 99–126; BP diastolic 56–87
[2020-11-05] MEDS: Potassium Chloride 20 MEQ in IV D5W 1,000 ML IV SCH ×2 (06:44→22:05)
--- NOTE | 2020-11-05 07:21 | NUR ---
EMBEDDED SOFTWARE PROGRAMMER NOTES, PATIENT SLEEPING AT THIS TIME, NO SOB/ACUTE DISTRESS NOTED, ON 3LPM VIA NC, BREATHING EVEN AND UNLABORED, OPTIMAL O2 SAT LEVEL, , NO SIGNIFICANT CHANGE IN CONDITION DURING THE NIGHT, REMAINS STABLE, ALL SAFETY MEASURES IN PLACED, CALL LIGHT W/I REACH, ENDORSED TO BROCK RN FOR CONTINUATION OF CARE.
--- NOTE | 2020-11-05 07:45 | NUR ---
ICU/RN PT IS AWAKE.NON-VERBAL,NOT FOLLOWS COMMAND.BED BOUND.ON 3L N/C SAT 02-98%.ON NEOSYNEPHRINE DRIP.AFEBRILE.NO PAIN REPORTED AT THIS TIME.RIGHT UPPER ARM MID LINE.F/C IN PLACE DRAINING WITH YELLOW URINE,SACRAL WOUND COVERED WITH MEPILEX.MULTIPLY BRUISES NOTED ALL OVER THE BODY.PERINEAL AREA REDNESS NOTED. LABS REVIEW. NOTIFIED.
[2020-11-05] MEDS: predniSONE 5 MG TABLET PO SCH (08:31)
[2020-11-05] MEDS: MEMANTINE HCL 5 MG TABLET PO SCH (08:31)
[2020-11-05] MEDS: PANTOPRAZOLE 40 MG TABLET.DR PO SCH (08:32)
[2020-11-05] MEDS: DONEPEZIL 5 MG TABLET PO SCH (08:32)
[2020-11-05] MEDS: QUETIAPINE FUMARATE 25 MG TABLET PO SCH ×2 (08:32→16:38)
[2020-11-05] MEDS: ESCITALOPRAM OXALATE (10 MG) 10 MG TABLET PO SCH (08:32)
[2020-11-05] MEDS: CARVEDILOL 3.125 MG TABLET PO SCH ×2 (08:33→22:02)
[2020-11-05] MEDS: ENOXAPARIN SODIUM 60 MG/0.6 ML DISP.SYRIN SQ SCH ×2 (08:34→22:04)
--- NOTE | 2020-11-05 09:00 | NUR ---
ICU/RN DUE MEDS ARE GIVEN ORDERED.AM CARE PROVIDED.WOUND DRESSING DONE ORDERED.NEOSYNEPHRINE DRIP OFF .BP STABLE.CONTINUE MONITORING.
[2020-11-05] MEDS: AMIODARONE HCL 200 MG TABLET PO SCH ×3 (10:51→16:38)
[2020-11-05] MEDS: POTASSIUM CHLORIDE 20 MEQ TAB.PRT.SR PO SCH (10:52)
--- NOTE | 2020-11-05 16:00 | NUR ---
ICU/RN PM CARE PROVIDED .WOUND DRESSING DONE ORDERED.PT TRANSFERRED TO TELE UNIT.V/S STABLE,AFEBRILE.NO PAIN REPORTED AT THIS TIME.REPORT GIVEN TO ED/RN
[2020-11-05] MEDS: WARFARIN SODIUM 2.5 MG TABLET PO SCH (17:11)
--- NOTE | 2020-11-05 19:30 | NUR ---
RN OPENING NOTE; BEDSIDE REPORT RECIEVED FROM ED RN. PATIENT IN NO APPARENT DISTRESS. OPENS EYES TO TOUCH. IV INFUSING TO SUZAN MIDLINE. PT IN NO RESP DISTRESS ON 3LNC BREATHING EVEN AND UNLABORED. FAMILY AT THE BEDSIDE REVIEWED POC QUESTIONS CONCERNS ADDRESSED.
[2020-11-05] MEDS: TAMSULOSIN 0.4 MG CAP.SR.24H PO SCH (22:01)
[2020-11-05] MEDS: Z GUARD REMEDY 2 OZ OINT TP SCH (22:04)
[2020-11-06] MEDS: CEFTRIAXONE 1 G in IV D5W 50 ML IV SCH ×2 (00:07→23:21)
[2020-11-06] MEDS: AZITHROMYCIN 500 MG in IV D5W 250 ML IV SCH (00:44)
[2020-11-06 00:54] VITALS: BP 102/65
--- NOTE | 2020-11-06 01:28 | NUR ---
SWALLOW EVAL ORDERED PER NURSING PROTOCOL. PATIENT HAS INFREQUENT/OCCASIONAL COUGH WHEN EATING OR DRINKING CONCERN FOR ASPIRATION. ASPIRATION PROTOCOLS IN PLACE. WILL CON TO MONITOR. FOR SAFETY.
--- NOTE | 2020-11-06 07:23 | NUR ---
QUARRY EQUIPMENT OPERATOR OPENING NOTES RECEIVED PATIENT AWAKE IN BED IN NO ACUTE SIGNS OF DISTRESS. HOB ELEVATED. OPEN EYES AND RESPONSIVE TO TACTILE STIMULI. NO S/S OF PAIN LIKE GRIMACING OR MOANING NOTED AT THIS TIME. ON O2 VIA N/C AT 3LPM, TOLERATING WELL WITH NO ACUTE RESPIRATORY DISTRESS NOTED. EXTERNAL HAND BOX COVERER CURRENTLY SHOWS NSR WITH BBB'S AND HR OF 69. MIDLINE ON SUZAN INTACT AND PATENT WITH IVF OF D5W + 20KCL 20MEQ INFUSING WELL. HERNANDEZ IN PLACE WITH SLIGHTLY DARK YELLOW COLORED URINE OUTPUT NOTED. SAFETY PRECAUTIONS IN PLACE: BED IN LOWEST LOCKED POSITION WITH S/R UP X2. CALL LIGHT WITHIN REACH. WILL CONTINUE TO MONITOR PT ACCORDINGLY.
[2020-11-06 08:00] VITALS: BP 113/68
[2020-11-06] MEDS: ESCITALOPRAM OXALATE (10 MG) 10 MG TABLET PO SCH (08:05)
[2020-11-06] MEDS: predniSONE 5 MG TABLET PO SCH (08:06)
[2020-11-06] MEDS: PANTOPRAZOLE 40 MG TABLET.DR PO SCH (08:06)
[2020-11-06] MEDS: QUETIAPINE FUMARATE 25 MG TABLET PO SCH ×2 (08:06→16:41)
[2020-11-06] MEDS: DONEPEZIL 5 MG TABLET PO SCH (08:06)
[2020-11-06] MEDS: MEMANTINE HCL 5 MG TABLET PO SCH (08:06)
--- NOTE | 2020-11-06 08:14 | NUR ---
RN NOTES SPEECH THERAPIST DID SWALLOW EVALUATION AND PT IS HIGH RISK FOR ASPIRATION AND RECOMMENDS XR VIDEO SWALLOW WITH SPEECH. DR BOSS ON UNIT AND MADE AWARE AND AGREE WITH PLAN.
[2020-11-06] MEDS: FUROSEMIDE 40 MG/4 ML VIAL IV SCH ×3 (09:13→16:42)
[2020-11-06] MEDS: POTASSIUM CHLORIDE 20 MEQ TAB.PRT.SR PO SCH ×3 (09:13→11:16)
[2020-11-06] MEDS: AMIODARONE HCL 200 MG TABLET PO SCH ×3 (09:14→16:42)
[2020-11-06] MEDS: CARVEDILOL 3.125 MG TABLET PO SCH ×2 (09:14→21:00)
[2020-11-06] MEDS: ENOXAPARIN SODIUM 60 MG/0.6 ML DISP.SYRIN SQ SCH ×2 (09:16→21:24)
[2020-11-06] MEDS: Z GUARD REMEDY 2 OZ OINT TP SCH ×2 (09:16→21:34)
[2020-11-06] MEDS ORDERED: IV D5W 1,000 ML IV ONE (10:00)
[2020-11-06] MEDS: WARFARIN SODIUM 2.5 MG TABLET PO SCH (16:43)
--- NOTE | 2020-11-06 18:33 | NUR ---
MS RN CLOSING NOTES PATIENT IN BED AWAKE AND LYING AT MODERATE HIGH BACKREST POSITION. OPEN EYES AND RESPONSIVE TO TACTILE STIMULI. MOUTH WORDS AT TIMES. ON O2 VIA N/C AT 3LPM, TOLERATING WELL WITH NO ACUTE RESPIRATORY DISTRESS NOTED DURING SHIFT. MIDLINE ON SUZAN INTACT AND PATENT WITH IVF OF D5W @ 43 ML/HR INFUSING WELL. HERNANDEZ IN PLACE WITH SLIGHTLY DARK YELLOW COLORED URINE OUTPUT NOTED, HERNANDEZ CARE DONE. PT TURNED AND REPOSITIONED Q 2HRS AND PRN. ALL NEEDS AND CARE PROVIDED WELL. SAFETY MEASURES KEPT IN PLACE: BED LOCKED AND IN LOWEST POSITION, HOB KEPT ELEVATED AT ALL TIMES, SIDE RAILS UP X2 AND CALL LIGHT WITHIN REACH. WILL ENDORSE KRISTINA TO [employer]ODUCT INSPECTION SUPERVISOR NURSE.
--- NOTE | 2020-11-06 19:30 | NUR ---
RN OPENING NOTES RECEIVED PT AWAKE IN BED, NONVERBAL, OPENS EYES TO STIMULI. RESPIRATIONS EVEN AND UNLABORED. ON O2 @3LPM VIA NC, O2 SAT 96%. NOTED IV ACCESS TO SUZAN MIDLINE INTACT/PATENT, INFUSING D5W @43ML/HR. FC IN PLACE, DRAINING WELL WITH TEA-COLORED URINE. PT IN NO ACUTE DISTRESS. SAFETY MEASURES IN PLACE, BED IN LOWEST LOCKED POSITION, S/R UP X2, CALL LIGHT WITHIN REACH. WILL CONTINUE TO MONITOR.
[2020-11-06 20:00] VITALS: BP 103/58
[2020-11-06] MEDS: TAMSULOSIN 0.4 MG CAP.SR.24H PO SCH ×2 (21:22→21:55)
--- NOTE | 2020-11-06 21:30 | NUR ---
RN NOTES INFORMED DR. BOSS THAT LUCY IS FOR VIDEO SWALLOW TOMORROW, DR. BOSS ORDERED TO PUT PATIENT ON NPO, ORDER NOTED AND CARRIED OUT
[2020-11-07 06:27] LABS: BASOPHILS % (AUTO) 0.2 % (0.0-2.0); EOSINOPHILS % (AUTO) 1.3 % (0.0-6.0); HEMATOCRIT 38 % (39-51); HEMOGLOBIN 12.7 g/dL (13.5-17.5); LYMPHOCYTES % (AUTO) 18.9 % (20.0-44.0); MEAN CORPUSCULAR HGB CONC 33 g/dl (31.0-36.0); MEAN CORPUSCULAR VOLUME 89 fL (80-96); MONOCYTES # (AUTO) 0.7 K/uL (0.1-1.30); NEUTROPHILS # (AUTO) 7.7 K/uL (1.8-8.9); NEUTROPHILS % (AUTO) 72.6 % (43.0-81.0); PLATELET COUNT (AUTO) 252 K/uL (150-450); RED BLOOD CELL COUNT(AUTO) 4.31 MIL/uL (4.5-6.0); WHITE BLOOD COUNT (AUTO) 10.6 K/uL (4.3-11.0)
--- NOTE | 2020-11-07 06:40 | NUR ---
RN CLOSING NOTES PT IN BED, NONVERBAL, OPENS EYES TO STIMULI. BREATHING EVEN AND UNLABORED. ON O2 @3LPM VIA NC, O2 SAT 96%. IV ACCESS TO SUZAN MIDLINE INTACT/PATENT, INFUSING D5W @43ML/HR. FC IN PLACE, DRAINING TEA-COLORED URINE. PT IN NO ACUTE DISTRESS. SAFETY MEASURES IN PLACE, BED IN LOWEST LOCKED POSITION, S/R UP X2, CALL LIGHT WITHIN REACH. WILL CONTINUE TO MONITOR.
[2020-11-07 07:05] LABS: ALANINE AMINOTRANSFERASE 32 U/L (12-78); ALBUMIN 2.4 g/dL (3.4-5.0); ALKALINE PHOSPHATASE 266 U/L (46-116); ASPARTATE AMINOTRANSFERASE 54 U/L (15-37); BILIRUBIN,TOTAL 1.1 mg/dL (0.2-1.0); CALCIUM, SERUM 8.2 mg/dL (8.5-10.1); CARBON DIOXIDE 25 mmol/L (21-32); CHLORIDE 100 mmol/L (98-107); CREATININE 1.5 mg/dL (0.6-1.3); GLUCOSE 103 mg/dL (74-106); MAGNESIUM 2.2 mg/dL (1.8-2.4); PHOSPHORUS 3.4 mg/dL (2.5-4.9); POTASSIUM 4.3 mmol/L (3.5-5.1); SODIUM SERUM 135 mmol/L (136-145); TOTAL PROTEIN, SERUM 7.2 g/dL (6.4-8.2); UREA NITROGEN, BLOOD 27 mg/dL (7-18)
[2020-11-07 08:00] VITALS: BP 120/71
[2020-11-07] MEDS ORDERED: IV LR 1000 ML 1,000 ML IV PRN (10:30)
[2020-11-07] MEDS ORDERED: BARIUM SULFATE 240 ML ORAL.SUSP PO ONE (10:37)
[2020-11-07] MEDS ORDERED: BARIUM SULFATE 148 GM SUSP.RECON PO ONE (10:37)
[2020-11-07] MEDS: ESCITALOPRAM OXALATE (10 MG) 10 MG TABLET PO SCH (10:56)
[2020-11-07] MEDS: MEMANTINE HCL 5 MG TABLET PO SCH (10:56)
[2020-11-07] MEDS: predniSONE 5 MG TABLET PO SCH (10:56)
[2020-11-07] MEDS: QUETIAPINE FUMARATE 25 MG TABLET PO SCH ×2 (10:56→17:35)
[2020-11-07] MEDS: PANTOPRAZOLE 40 MG TABLET.DR PO SCH (10:56)
[2020-11-07] MEDS: DONEPEZIL 5 MG TABLET PO SCH (10:56)
[2020-11-07] MEDS: CARVEDILOL 3.125 MG TABLET PO SCH ×2 (10:57→21:01)
[2020-11-07] MEDS: AMIODARONE HCL 200 MG TABLET PO SCH ×3 (10:57→17:36)
[2020-11-07] MEDS: Z GUARD REMEDY 2 OZ OINT TP SCH ×2 (13:10→21:03)
[2020-11-07 16:00] VITALS: BP 160/68
[2020-11-07] MEDS: WARFARIN SODIUM 2.5 MG TABLET PO SCH (17:00)
--- NOTE | 2020-11-07 17:15 | NUR ---
RN-NOTES DR. BOSS MADE AWARE OF PATIENT INR RESULTS OF 2.91 TODAY WITH T.O ORDER TO HOLD COUMADIN DOSE TODAY AND INR TOMORROW. NOTED AND CARRIED OUT.
--- NOTE | 2020-11-07 18:49 | NUR ---
RN-CLOSED NOTES PATIENT LYING IN BED AWAKE,ALERT X1 ,NO ACUTE DISTRESS NOTED. PATIENT ON IV FLUID OF Lr@ 43 mL/hr ,INFUSING WELL WELL TOLERATED. IV SITE ON SUZAN HAND, NO S/S OF INFILTRATION NOTED ON THE IV SITE. F/C INTACT DRAINING WELL WITH REDDISH URINE. ALL NEEDS ATTENDED AND ANTICIPATED.REPOSITIONED Q2HRS ORDERED.WILL ENDORSE TO INCOMING NURSED FOR CONTINUITY OF CARE AND MONITORING.
--- NOTE | 2020-11-07 19:25 | NUR ---
RN OPENING NOTES RECEIVED PT IN BED, AWAKE, A/O X1, NONVERBAL RESPONSE, OPENS EYES TO STIMULI. RESPIRATIONS EVEN AND UNLABORED. ON O2 @3LPM VIA NC AND TOLERATING WELL. IV ACCESS ON SUZAN MIDLINE INTACT/PATENT. FC IN PLACE, DRAINING WELL WITH DARK TEA-COLORED URINE. PT IN NO ACUTE DISTRESS. SAFETY MEASURES IN PLACE, BED IN LOWEST LOCKED POSITION, HOB ELEVATED 30-45 DEGREES, S/R UP X2, CALL LIGHT WITHIN REACH. WILL CONTINUE TO MONITOR.
[2020-11-07 20:00] VITALS: BP 135/72
[2020-11-07] MEDS: TAMSULOSIN 0.4 MG CAP.SR.24H PO SCH (21:02)
[2020-11-07] MEDS: CEFTRIAXONE 1 G in IV D5W 50 ML IV SCH (23:04)
--- NOTE | 2020-11-08 06:44 | NUR ---
RN CLOSING NOTES PT IN BED, AWAKE, A/O X1, NONVERBAL, OPENS EYES WHEN NAME IS CALLED. NO S/S OF PAIN OR DISCOMFORT NOTED. RESPIRATIONS EVEN AND UNLABORED, ON O2 @3LPM VIA NC. IV ACCESS TO SUZAN MIDLINE INTACT/PATENT, WITH LR INFUSING AT 43ML/HR. FC IN PLACE, DRAINING TEA-COLORED URINE. ASPIRATION PRECAUTIONS OBSERVED. KEPT HOB ELEVATED TO 45 DEGREES. REPOSITIONED Q2H AND NEEDED. SAFETY MEASURES IN PLACE, BED IN LOWEST LOCKED POSITION, S/R UP X2, CALL LIGHT WITHIN REACH.
[2020-11-08 07:32] LABS: BASOPHILS % (AUTO) 0.2 % (0.0-2.0); EOSINOPHILS % (AUTO) 1.6 % (0.0-6.0); HEMATOCRIT 34 % (39-51); HEMOGLOBIN 11.4 g/dL (13.5-17.5); LYMPHOCYTES # (AUTO) 1.5 K/uL (0.8-4.8); LYMPHOCYTES % (AUTO) 15.2 % (20.0-44.0); MEAN CORPUSCULAR HGB CONC 33 g/dl (31.0-36.0); MEAN CORPUSCULAR VOLUME 88 fL (80-96); MONOCYTES # (AUTO) 0.9 K/uL (0.1-1.30); NEUTROPHILS # (AUTO) 7.2 K/uL (1.8-8.9); PLATELET COUNT (AUTO) 272 K/uL (150-450); WHITE BLOOD COUNT (AUTO) 9.7 K/uL (4.3-11.0)
--- NOTE | 2020-11-08 07:46 | NUR ---
RN Opening Notes: Received pt. awake in bed, with oxygen at 3 L/min, pt. with ongoing IV of LR 1 L @ 43 ml/hr and pt. taylor cather attached to urobag. Pt. is non verbal. No sign of distress noted. Will continue to monitor.
[2020-11-08 08:00] VITALS: BP 106/60
[2020-11-08 08:09] LABS: CALCIUM, SERUM 8.1 mg/dL (8.5-10.1); CREATININE 1.1 mg/dL (0.6-1.3); MAGNESIUM 2.3 mg/dL (1.8-2.4); POTASSIUM 4.1 mmol/L (3.5-5.1)
[2020-11-08] MEDS: DONEPEZIL 5 MG TABLET PO SCH (09:09)
[2020-11-08] MEDS: ESCITALOPRAM OXALATE (10 MG) 10 MG TABLET PO SCH (09:09)
[2020-11-08] MEDS: predniSONE 5 MG TABLET PO SCH (09:09)
[2020-11-08] MEDS: QUETIAPINE FUMARATE 25 MG TABLET PO SCH ×2 (09:10→16:37)
[2020-11-08] MEDS: MEMANTINE HCL 5 MG TABLET PO SCH (09:10)
[2020-11-08 09:11] VITALS: BP 135/72
[2020-11-08] MEDS: CARVEDILOL 3.125 MG TABLET PO SCH ×2 (09:11→21:44)
[2020-11-08 09:35] VITALS: BP 110/62
[2020-11-08] MEDS: PANTOPRAZOLE 40 MG TABLET.DR PO SCH (09:54)
[2020-11-08] MEDS: AMIODARONE HCL 200 MG TABLET PO SCH ×3 (09:55→16:38)
--- NOTE | 2020-11-08 12:24 | NUR ---
Dr. Carbajal in the unit and notified about the PT/INR of 27.7 and 2.88 and ordered to Hold coumadin today.
[2020-11-08] MEDS: Z GUARD REMEDY 2 OZ OINT TP SCH ×2 (12:26→21:54)
[2020-11-08] MEDS: CYANOCOBALAMIN 1,000 MCG/ML VIAL IM SCH (14:07)
[2020-11-08 16:00] VITALS: BP 114/63
[2020-11-08] MEDS: WARFARIN SODIUM 2.5 MG TABLET PO SCH (16:38)
--- NOTE | 2020-11-08 19:07 | NUR ---
Closing Notes. Pt. awake in bed, non verbal with oxygan via nasal cannula. No distress noted and will continue to monitor for safety.
[2020-11-08 20:00] VITALS: BP 110/64
--- NOTE | 2020-11-08 20:00 | NUR ---
MS RN OPENING NOTES Patient is A&Ox1.opens eyes to name or touch. Non-verbal. Holt catheter patent and draining dark yellow/ayaka urine. SUZAN midline intact and patent. No signs of distress. Continue on aspiration precautions, fall precautions, pressure ulcer precautions.
[2020-11-08] MEDS: TAMSULOSIN 0.4 MG CAP.SR.24H PO SCH (21:44)
[2020-11-08] MEDS: CEFTRIAXONE 1 G in IV D5W 50 ML IV SCH (22:09)
[2020-11-09 06:49] LABS: BASOPHILS % (AUTO) 0.2 % (0.0-2.0); EOSINOPHILS % (AUTO) 1.6 % (0.0-6.0); HEMATOCRIT 37 % (39-51); HEMOGLOBIN 12.3 g/dL (13.5-17.5); LYMPHOCYTES # (AUTO) 1.6 K/uL (0.8-4.8); LYMPHOCYTES % (AUTO) 15.7 % (20.0-44.0); MEAN CORPUSCULAR HGB CONC 33 g/dl (31.0-36.0); MEAN CORPUSCULAR VOLUME 89 fL (80-96); MONOCYTES # (AUTO) 0.9 K/uL (0.1-1.30); MONOCYTES % (AUTO) 9.3 % (2.0-12.0); NEUTROPHILS # (AUTO) 7.3 K/uL (1.8-8.9); NEUTROPHILS % (AUTO) 73.2 % (43.0-81.0); PLATELET COUNT (AUTO) 308 K/uL (150-450); RED BLOOD CELL COUNT(AUTO) 4.13 MIL/uL (4.5-6.0)
[2020-11-09 07:03] LABS: CALCIUM, SERUM 7.8 mg/dL (8.5-10.1); CREATININE 1.1 mg/dL (0.6-1.3)
[2020-11-09] MEDS: PANTOPRAZOLE 40 MG TABLET.DR PO SCH (07:30)
[2020-11-09 08:00] VITALS: BP 125/75
[2020-11-09] MEDS: Z GUARD REMEDY 2 OZ OINT TP SCH ×2 (09:00→21:50)
[2020-11-09 09:17] LABS: ABG OXYGEN SATURATION 93.2 % (92.0-98.5); ABG PCO2 34.6 mmHg (35.0-45.0); ABG PH 7.451 (7.350-7.450); ABG PO2 66.9 mmHg (75.0-100.0); AaDO2 41.4 mmHg; COHb 0.8 % (0.5-1.5); MetHb 0.4 % (0.0-1.5); O2Hb 92.1 % (94.0-97.0); SITE, ABG Left Radial; VENT MODE, BG room air
--- NOTE | 2020-11-09 09:34 | NUR ---
RT NOTE PLACED PATIENT ON ROOM AIR AND ABG DRAWN 30 MIN AFTER PER MD ORDERS. PATIENT TOLERATE WELL. PLACED BACK ON 3L NASAL CANNULA. NURSE AWARE.
[2020-11-09] MEDS: CYANOCOBALAMIN 1,000 MCG/ML VIAL IM SCH (11:19)
[2020-11-09] MEDS: QUETIAPINE FUMARATE 25 MG TABLET PO SCH ×2 (11:19→17:02)
[2020-11-09] MEDS: predniSONE 5 MG TABLET PO SCH (11:20)
[2020-11-09] MEDS: MEMANTINE HCL 5 MG TABLET PO SCH (11:20)
[2020-11-09] MEDS: AMIODARONE HCL 200 MG TABLET PO SCH ×3 (11:20→17:01)
[2020-11-09] MEDS: CARVEDILOL 3.125 MG TABLET PO SCH ×2 (11:21→21:49)
[2020-11-09] MEDS: DONEPEZIL 5 MG TABLET PO SCH (11:21)
[2020-11-09] MEDS: ESCITALOPRAM OXALATE (10 MG) 10 MG TABLET PO SCH (11:21)
[2020-11-09] MEDS ORDERED: CARV3.122 PO (12:10)
[2020-11-09] MEDS ORDERED: AMIO200T7 PO (12:10)
[2020-11-09] MEDS ORDERED: Warfarin Sodium PO (12:10)
[2020-11-09 16:00] VITALS: BP 104/54
[2020-11-09] MEDS: WARFARIN SODIUM 2.5 MG TABLET PO SCH (17:04)
[2020-11-09 20:00] VITALS: BP 107/59
[2020-11-09] MEDS: TAMSULOSIN 0.4 MG CAP.SR.24H PO SCH (21:50)
[2020-11-09] MEDS: CEFTRIAXONE 1 G in IV D5W 50 ML IV SCH (23:27)
--- NOTE | 2020-11-10 06:26 | NUR ---
MS RN NOTES PT OBTUNDED. NON VERBAL. RESPONDS TO TACTILE STIMULI. NOT IN ANY DISTRESS. NO SOB NOTED. NO S/SX OF ANY PAIN OR DISCOMFORT AT THIS TIME. WITH IV-HL PATENT & INTACT. AM CARE DONE. MONITORED ACCORDINGLY. CALL LIGHT WITHIN REACH. BED IN LOWEST POSITION. SR UP X 3 WITH BED ALARM ON FOR SAFETY. WILL ENDORSE TO NEXT SHIFT.
[2020-11-10 08:00] VITALS: BP 110/62
--- NOTE | 2020-11-10 08:05 | NUR ---
MS RN OPENING NOTES RECEIVED PATIENT ASLEEP IN BED, EASY TO AROUSE. ALERT AND ORIENTED X 1, NON-VERBAL AND UNABLE TO FOLLOW COMMANDS. NO SIGNS OR SYMPTOMS OF DISTRESS NOTED. NO SOB. BREATHING IS EVEN AND UNLABORED. PATIENT TOLERATING WELL ON ROOM AIR. IV ACCESS MIDLINE SUZAN PATENT, INTACT AND FLUSHING WELL. FC IS PATENT AND DRAINING THAIS URINE. SAFETY MEASURES IN PLACE WITH BED AT LOW POSITION, SIDE RAILS UP X2. CALL LIGHT IS WITHIN REACH. WILL CONTINUE TO MONITOR PATIENT THROUGHOUT SHIFT.
[2020-11-10] MEDS: PANTOPRAZOLE 40 MG TABLET.DR PO SCH (08:27)
[2020-11-10] MEDS: ESCITALOPRAM OXALATE (10 MG) 10 MG TABLET PO SCH (09:06)
[2020-11-10] MEDS: MEMANTINE HCL 5 MG TABLET PO SCH (09:06)
[2020-11-10] MEDS: predniSONE 5 MG TABLET PO SCH (09:06)
[2020-11-10] MEDS: QUETIAPINE FUMARATE 25 MG TABLET PO SCH ×2 (09:06→17:22)
[2020-11-10] MEDS: DONEPEZIL 5 MG TABLET PO SCH (09:06)
[2020-11-10] MEDS: CARVEDILOL 3.125 MG TABLET PO SCH ×2 (09:07→20:38)
[2020-11-10] MEDS: AMIODARONE HCL 200 MG TABLET PO SCH ×3 (09:07→17:21)
[2020-11-10] MEDS: Z GUARD REMEDY 2 OZ OINT TP SCH ×2 (09:09→20:59)
[2020-11-10] MEDS: CYANOCOBALAMIN 1,000 MCG/ML VIAL IM SCH (09:12)
[2020-11-10 16:00] VITALS: BP 97/61
[2020-11-10] MEDS: WARFARIN SODIUM 2.5 MG TABLET PO SCH (17:26)
--- NOTE | 2020-11-10 18:48 | NUR ---
MS RN CLOSING NOTES PATIENT ASLEEP IN BED, EASY TO AROUSE. ALERT AND ORIENTED X 1, NON-VERBAL. NO SIGNS OR SYMPTOMS OF DISTRESS NOTED. NO SOB. BREATHING IS EVEN AND UNLABORED. PATIENT TOLERATING WELL ON ROOM AIR. IV ACCESS MIDLINE SUZAN PATENT, INTACT AND FLUSHING WELL. FC IS PATENT AND DRAINING WELL WITH TEA COLORED URINE. SAFETY MEASURES IN PLACE WITH BED AT LOW POSITION, SIDE RAILS UP X2. CALL LIGHT IS WITHIN REACH. WILL ENDORSE CONTINUITY OF CARE TO ONCOMING SHIFT
[2020-11-10 20:00] VITALS: BP 119/71
[2020-11-10] MEDS: TAMSULOSIN 0.4 MG CAP.SR.24H PO SCH (21:01)
--- NOTE | 2020-11-11 06:51 | NUR ---
MS RN CLOSING NOTE PT OBTUNDED. NON VERBAL. RESPONDS TO TACTILE STIMULI. NOT IN ANY DISTRESS. NO SOB NOTED. NO S/SX OF ANY PAIN OR DISCOMFORT AT THIS TIME. CALL LIGHT WITHIN REACH. BED IN LOWEST POSITION. SR UP X 3 WITH BED ALARM ON FOR SAFETY. WILL ENDORSE TO NEXT SHIFT.
[2020-11-11] MEDS: ESCITALOPRAM OXALATE (10 MG) 10 MG TABLET PO SCH (08:28)
[2020-11-11] MEDS: PANTOPRAZOLE 40 MG TABLET.DR PO SCH (08:28)
[2020-11-11] MEDS: QUETIAPINE FUMARATE 25 MG TABLET PO SCH ×2 (08:28→17:21)
[2020-11-11] MEDS: CARVEDILOL 3.125 MG TABLET PO SCH ×2 (08:29→21:32)
[2020-11-11] MEDS: predniSONE 5 MG TABLET PO SCH (08:29)
[2020-11-11] MEDS: MEMANTINE HCL 5 MG TABLET PO SCH (08:29)
[2020-11-11] MEDS: DONEPEZIL 5 MG TABLET PO SCH (08:29)
[2020-11-11 09:13] VITALS: BP 132/69
[2020-11-11] MEDS: AMIODARONE HCL 200 MG TABLET PO SCH ×2 (09:14→17:20)
[2020-11-11] MEDS: Z GUARD REMEDY 2 OZ OINT TP SCH ×2 (09:15→21:33)
--- NOTE | 2020-11-11 09:25 | NUR ---
WOUND CARE CONSULT: PT WAS SEEN BY SURGICAL P.A. AND ORDERS IN PLACE FOR SACRAL DEEP TISSUE INJURY WOUND, PRESENT ON ADMISSION PER SURGICAL TEAM. PT TO GO HOME WITH HOSPICE PER RN. SKIN PROTECTION DISCUSSED WITH NURSING STAFF. WILL SEE PRN.
--- NOTE | 2020-11-11 15:07 | NUR ---
MS RN NOTES AWAITING ADMISSION FROM [facility]. SPOKE WITH KASSY DOWEL PIN MAN.
[2020-11-11 16:37] VITALS: BP 114/85
[2020-11-11] MEDS: WARFARIN SODIUM 2.5 MG TABLET PO SCH (17:00)
--- NOTE | 2020-11-11 18:38 | NUR ---
MS RN CLOSING NOTES PATIENT IS RESTING COMFORTABLY IN BED. ALERT AND ORIENTED X 1, NON-VERBAL AND UNABLE TO FOLLOW COMMANDS. NO SIGNS OR SYMPTOMS OF DISTRESS NOTED. NO SOB. BREATHING IS EVEN AND UNLABORED. PATIENT TOLERATING WELL ON ROOM AIR. IV ACCESS MIDLINE SUZAN PATENT, INTACT AND FLUSHING WELL. FC IS PATENT AND DRAINING DARK THAIS URINE. UA SENT TO LAB PER MD ORDER. WILL ENDORSE CONTINUITY OF CARE TO ONCOMING SHIFT.
[2020-11-11 20:00] VITALS: BP 113/58
--- NOTE | 2020-11-11 20:00 | NUR ---
MS RN OPENING NOTES PATIENT ASLEEP IN BED, EASILY TO AROUSED, PT NON-VERBAL AND UNABLE TO FOLLOW COMMANDS. PT APPEARS COMFORTABLE, PT STABLE ON RA, NO S/S OF DISTRESS OR SOB NOTED, BREATHING EVEN AND UNLABORED.SUZAN MIDLINE INTACT AND FLUSHING WELL. HERNANDEZ CATH INTACT AND DRAINING THAIS URINE. SAFETY MEASURES IN PLACE: BED AT LOW POSITION, SIDE RAILS UP X2, HOB ELEVATED, CALL LIGHT IS WITHIN REACH, BED ALARM ON. WILL CONTINUE TO MONITOR PATIENT THROUGHOUT SHIFT.
[2020-11-11] MEDS: TAMSULOSIN 0.4 MG CAP.SR.24H PO SCH (21:33)
[2020-11-11 23:28] LABS: BILIRUBIN,URINE NEGATIVE (NEGATIVE); COLOR,URINE AMBER (YELLOW); LEUKOCYTE ESTERASE ,URINE SMALL (NEGATIVE); NITRITE, URINE POSITIVE (NEGATIVE); PH,URINE 6.5 (5.0-8.0); PROTEIN,URINE 100 mg/dl (NEGATIVE); UGLUCOSE NEGATIVE (NEGATIVE); UROBILINOGEN,URINE >=8.0 EU/dL (0.2)
[2020-11-12 01:13] LABS: BACTERIA,URINE Many /HPF (None Seen); RBC,URINE 81-100 /HPF (0-2); SQUAMOUS EPITHELIAL CELL,UR Few /HPF (None Seen)
--- NOTE | 2020-11-12 07:04 | NUR ---
MS RN CLOSING NOTES PATIENT SLEEPING IN BED, NON-VERBAL. PT STABLE ON RA, NO S/S OF DISTRESS OR SOB NOTED, BREATHING EVEN AND UNLABORED. WOUND TREATMENT FOR SACRUM DONE. PATIENT TURNED Q2H AND OFFLOADED. HERNANDEZ CATH INTACT AND DRAINING TEA COLORED URINE, OUTPUT OF 450 ML. MEDICATIONS GIVEN ORDERED, PT NEEDS MET THROUGHOUT SHIFT. SAFETY MEASURES IN PLACE: CALL LIGHT WITHIN REACH, BED LOCKED IN LOW POSITION, BED ALARM ON, SIDE RAILS UP X 3. WILL ENDORSE TO DAY SHIFT NURSE FOR CONTINUITY OF CARE.
[2020-11-12 08:00] VITALS: BP 135/74
[2020-11-12] MEDS: AMIODARONE HCL 200 MG TABLET PO SCH ×2 (09:01→16:22)
[2020-11-12] MEDS: CARVEDILOL 3.125 MG TABLET PO SCH ×2 (09:01→20:36)
[2020-11-12] MEDS: DONEPEZIL 5 MG TABLET PO SCH (09:02)
[2020-11-12] MEDS: ESCITALOPRAM OXALATE (10 MG) 10 MG TABLET PO SCH (09:02)
[2020-11-12] MEDS: PANTOPRAZOLE 40 MG TABLET.DR PO SCH (09:02)
[2020-11-12] MEDS: MEMANTINE HCL 5 MG TABLET PO SCH (09:02)
[2020-11-12] MEDS: QUETIAPINE FUMARATE 25 MG TABLET PO SCH ×2 (09:02→16:22)
[2020-11-12] MEDS: predniSONE 5 MG TABLET PO SCH (09:02)
[2020-11-12] MEDS: Z GUARD REMEDY 2 OZ OINT TP SCH ×2 (09:11→21:18)
[2020-11-12 16:07] VITALS: BP 138/70
[2020-11-12] MEDS: WARFARIN SODIUM 2.5 MG TABLET PO SCH (16:21)
--- NOTE | 2020-11-12 16:23 | NUR ---
RN NOTE HELD COUMADIN PER DR. BOSS. INR 2.99
--- NOTE | 2020-11-12 18:20 | NUR ---
End of Shift Summary Patient resting in bed. Non verbal, opens eyes. On room air. No sob noted. No s/s of respiratory distress. IV access on right upper arm midline, intact and patent. No signs of infiltration. Due meds given as ordered. Head of the bed kept elevated. Holt catheter in place, draining tea colored urine with sediments, 330 cc output. Safety measures maintained. Bed in lowest position, brakes locked. Side rails up x2. Call light within reach. Will endorse continuity of care to oncoming shift.
--- NOTE | 2020-11-12 19:51 | NUR ---
MS RN OPENING NOTE RECEIVED PT IN BED WITH EYES CLOSED, AROUSABLE TO STIMULATION. PT IS NON-VERBAL AND UNABLE TO FOLLOW COMMANDS. PT IS STABLE ON ROOM AIR. NO SOB OR S/S OF RESPIRATORY DISTRESS NOTED. PT HAS NO S/O PAIN SUCH FACIAL GRIMACING NOTED. IV ACCESS IN SUZAN MIDLINE, INTACT AND PATENT. HERNANDEZ CATH IN PLACE DRAINING CLEAR THAIS URINE. SAFETY PRECAUTIONS MAINTAINED. BED IN LOWEST LOCKED POSITION, HOB ELEVATED, SIDE RAILS UP X2. CALL LIGHT AND TABLE WITHIN REACH. WILL CONTINUE WITH PLAN OF CARE.
[2020-11-12 20:00] VITALS: BP 100/50
[2020-11-12] MEDS: TAMSULOSIN 0.4 MG CAP.SR.24H PO SCH (21:05)
--- NOTE | 2020-11-13 06:30 | NUR ---
MS RN CLOSING NOTE PT IS IN BED WITH EYES CLOSED, AROUSABLE TO STIMULATION. PT IS NON-VERBAL AND UNABLE TO FOLLOW COMMANDS. PT IS STABLE ON ROOM AIR. NO SOB OR S/S OF RESPIRATORY DISTRESS NOTED. PT HAS NO S/O PAIN SUCH FACIAL GRIMACING NOTED. IV ACCESS IS INTACT, PATENT, AND FLUSHING WELL. HERNANDEZ CATH IN PLACE DRAINING TEA-COLORED URINE. ALL NEEDS HAVE BEEN MET. PT REPOSITIONED Q2H AND PRN. SAFETY PRECAUTIONS MAINTAINED AT ALL TIMES. BED IN LOWEST LOCKED POSITION, HOB ELEVATED, SIDE RAILS UP X2. CALL LIGHT AND TABLE WITHIN REACH. WILL ENDORSE TO ONCOMING NURSE FOR KRISTINA.
[2020-11-13 06:58] LABS: BASOPHILS % (AUTO) 0.3 % (0.0-2.0); EOSINOPHILS % (AUTO) 2.1 % (0.0-6.0); HEMATOCRIT 35 % (39-51); HEMOGLOBIN 11.5 g/dL (13.5-17.5); LYMPHOCYTES % (AUTO) 21.4 % (20.0-44.0); MEAN CORPUSCULAR HGB CONC 33 g/dl (31.0-36.0); MEAN CORPUSCULAR VOLUME 89 fL (80-96); MONOCYTES # (AUTO) 1.1 K/uL (0.1-1.30); MONOCYTES % (AUTO) 11.7 % (2.0-12.0); NEUTROPHILS # (AUTO) 6.2 K/uL (1.8-8.9); NEUTROPHILS % (AUTO) 64.5 % (43.0-81.0); PLATELET COUNT (AUTO) 354 K/uL (150-450); RED BLOOD CELL COUNT(AUTO) 3.91 MIL/uL (4.5-6.0); WHITE BLOOD COUNT (AUTO) 9.5 K/uL (4.3-11.0)
[2020-11-13 07:15] LABS: CREATININE 1.2 mg/dL (0.6-1.3); POTASSIUM 4.2 mmol/L (3.5-5.1)
[2020-11-13] MEDS: PANTOPRAZOLE 40 MG TABLET.DR PO SCH (07:30)
[2020-11-13 08:00] VITALS: BP 116/89
[2020-11-13] MEDS: AMIODARONE HCL 200 MG TABLET PO SCH (09:26)
[2020-11-13 09:31] VITALS: BP 116/66
[2020-11-13] MEDS: CARVEDILOL 3.125 MG TABLET PO SCH (09:31)
[2020-11-13] MEDS: MEMANTINE HCL 5 MG TABLET PO SCH (09:31)
[2020-11-13] MEDS: predniSONE 5 MG TABLET PO SCH (09:31)
[2020-11-13] MEDS: QUETIAPINE FUMARATE 25 MG TABLET PO SCH (09:31)
[2020-11-13] MEDS: DONEPEZIL 5 MG TABLET PO SCH (09:31)
[2020-11-13] MEDS: ESCITALOPRAM OXALATE (10 MG) 10 MG TABLET PO SCH (09:37)
[2020-11-13] MEDS: Z GUARD REMEDY 2 OZ OINT TP SCH (09:43)
--- NOTE | 2020-11-13 11:30 | NUR ---
ORDER TO D/C HERNANDEZ RECEIVED. HERNANDEZ CATHETER REMOVED INTACT. 325 CC URINE IN BAG. WILL MONITOR.
--- NOTE | 2020-11-13 18:00 | NUR ---
PT DISCHARGED. PT HAS NOT VOIDED AFTER CATHETER REMOVAL. BLADDER SCAN DONE SHOWING 117 CC OF URINE. PT DIAPERED AND PLACED IN RMOUNT ZION. SACRAL WOUND TREATED AND COVERED WITH MEPILEX ORDERED. NO SIGNS OF DISTRESS NOTED. ALL PERTINENT RECORDS PRINTED AND GIVEN TO TRANSPORT TEAM TO GIVE TO [facility]. ALL BELONGINGS RETURNED. MID LINE WAS NOT REMOVED. STEVE FROM [facility] ARRANGING REMOVAL OF MIDLINE FOR TOMORROW.
== END 2020-11-13 17:30 | disposition hospice, home (50) | DRG 177 ==
LOC: ER 22:53 → TRANSITION 23:57 → TELE1 11-02 01:43 → ICU 11-02 22:36 → TELE 11-05 16:13 → MED 11-06 10:54
PROVIDERS: ADMIT Legal Medicine; ATTEND Nurse Practitioner Acute Care
PROC: 05HB33Z Insertion of Infusion Device into Right Basilic Vein, Percutaneous Approach (ICD-10-PCS; principal; 2020-11-03)
DX: J69.0 Pneumonitis due to inhalation of food and vomit (principal); G93.41 Metabolic encephalopathy; J96.01 Acute respiratory failure with hypoxia; I21.4 Non-ST elevation (NSTEMI) myocardial infarction; E87.0 Hyperosmolality and hypernatremia; N17.9 Acute kidney failure, unspecified; I13.0 Hypertensive heart and chronic kidney disease with heart failure and stage 1 through stage 4 chronic kidney disease, or unspecified chronic kidney disease; I42.9 Cardiomyopathy, unspecified; I47.2 Ventricular tachycardia; E86.0 Dehydration; G30.9 Alzheimer's disease, unspecified; F02.80 Dementia in other diseases classified elsewhere, unspecified severity, without behavioral disturbance, psychotic disturbance, mood disturbance, and anxiety; N18.30 Chronic kidney disease, stage 3 unspecified; Z20.822 Contact with and (suspected) exposure to COVID-19; Z86.73 Personal history of transient ischemic attack (TIA), and cerebral infarction without residual deficits; Z66 Do not resuscitate; Z51.5 Encounter for palliative care; Z74.01 Bed confinement status; I50.9 Heart failure, unspecified; I70.0 Atherosclerosis of aorta; Z79.01 Long term (current) use of anticoagulants; Z79.899 Other long term (current) drug therapy; I25.10 Atherosclerotic heart disease of native coronary artery without angina pectoris; F41.9 Anxiety disorder, unspecified; R33.8 Other retention of urine; R13.10 Dysphagia, unspecified; Z95.2 Presence of prosthetic heart valve; Z95.1 Presence of aortocoronary bypass graft; N40.1 Benign prostatic hyperplasia with lower urinary tract symptoms; Z95.0 Presence of cardiac pacemaker; Z87.442 Personal history of urinary calculi; E78.5 Hyperlipidemia, unspecified; I48.91 Unspecified atrial fibrillation; L89.156 Pressure-induced deep tissue damage of sacral region; E87.6 Hypokalemia
CPT/HCPCS: 36410; 36415; 36600; 71045-TC; 74230-TC; 76770-TC; 80048-TC; 80053-TC; 80076-TC; 81001; 82803-TC; 83605-TC; 83735-TC; 83880; 84100-TC; 84484-TC; 85025-TC; 85610-TC; 85730-TC; 87040-TC; 87081-TC; 87086-TC; 92521; 92526; A6403; C9113; G0378; J0282; J0456; J0696; J1650; J1940; J2370; J3420; J3480; J3490; J7040; J7050; J7060; J7070; J7120; J7512; U0003

== ENCOUNTER 2020-11-22 19:54 | Inpatient (IN) | payer MEDICARE, OTHER ==
[~2020-11-22] VITALS: Ht 165.1 cm; Wt 58.5 kg
[~2020-11-22 19:54] MED LIST changes: +AMIO200T7 PO; -CARV25TA2 PO; +CARV3.122 PO; -DICL100G34 TP; -HYDR-4076 PO; +Warfarin Sodium PO
--- NOTE | 2020-11-22 20:04 | NUR ---
CALLED [facility] SPEAKING WITH DR. COSTELLO
--- NOTE | 2020-11-22 20:20 | NUR ---
MOVE SHEET SUBMITTED AND CALLED FOR ICU BED.
--- NOTE | 2020-11-22 20:32 | NUR ---
blood collected and sent to lab
[2020-11-22 20:37] LABS: BASOPHILS % (AUTO) 0.3 % (0.0-2.0); EOSINOPHILS % (AUTO) 1.7 % (0.0-6.0); HEMATOCRIT 32 % (39-51); HEMOGLOBIN 10.4 g/dL (13.5-17.5); LYMPHOCYTES # (AUTO) 3.4 K/uL (0.8-4.8); LYMPHOCYTES % (AUTO) 24.5 % (20.0-44.0); MEAN CORPUSCULAR HGB CONC 33 g/dl (31.0-36.0); MEAN CORPUSCULAR VOLUME 91 fL (80-96); MONOCYTES # (AUTO) 0.9 K/uL (0.1-1.30); MONOCYTES % (AUTO) 6.4 % (2.0-12.0); NEUTROPHILS # (AUTO) 9.2 K/uL (1.8-8.9); NEUTROPHILS % (AUTO) 67.1 % (43.0-81.0); PLATELET COUNT (AUTO) 274 K/uL (150-450); RED BLOOD CELL COUNT(AUTO) 3.51 MIL/uL (4.5-6.0); WHITE BLOOD COUNT (AUTO) 13.8 K/uL (4.3-11.0)
[2020-11-22] MEDS ORDERED: PHYTONADIONE INJ 10 MG/1 ML AMPUL SQ ONE (20:46)
--- NOTE | 2020-11-22 20:48 | NUR ---
RASHID #20G S/L AND L HAND #18G S/L PATENT AND INTACT. TOLERATING ROOM AIR WELL WITH NO SOB. AFEBRILE
[2020-11-22 20:49] LABS: CALCIUM, SERUM 7.5 mg/dL (8.5-10.1); CARBON DIOXIDE 24 mmol/L (21-32); CHLORIDE 114 mmol/L (98-107); CREATININE 1.7 mg/dL (0.6-1.3); GLUCOSE 118 mg/dL (74-106); POTASSIUM 5.7 mmol/L (3.5-5.1); SODIUM SERUM 143 mmol/L (136-145); UREA NITROGEN, BLOOD 64 mg/dL (7-18)
[2020-11-22] MEDS ORDERED: PHYTONADIONE INJ 10 MG/1 ML AMPUL ONE (20:52)
[2020-11-22] MEDS ORDERED: PROTHROMBIN COMPLEX CONCENTR 500 UNIT VIAL IV ONE ×2 (20:56→21:30)
[2020-11-22 21:02] LABS: ALANINE AMINOTRANSFERASE 67 U/L (12-78); ALBUMIN 1.8 g/dL (3.4-5.0); ALKALINE PHOSPHATASE 228 U/L (46-116); ASPARTATE AMINOTRANSFERASE 93 U/L (15-37); BILIRUBIN,DIRECT 0.4 mg/dL (0.0-0.2); BILIRUBIN,TOTAL 0.7 mg/dL (0.2-1.0); LIPASE 66 U/L (73-393); TOTAL PROTEIN, SERUM 5.7 g/dL (6.4-8.2)
--- NOTE | 2020-11-22 21:20 | NUR ---
PATIENT TAKEN TO RADIOLOGY FOR XR Addendum: 11/22/[address] W/O CONTRAST
[2020-11-22] MEDS ORDERED: INSULIN REGULAR, HUMAN 100 UNIT/ML 10 ML VIAL IV ONE (21:30)
[2020-11-22] MEDS ORDERED: CALCIUM CHLORIDE 1,000 MG/10 ML DISP.SYRIN IV ONE (21:30)
[2020-11-22] MEDS ORDERED: SODIUM BICARBONATE SYR 50 MEQ/50 ML DISP.SYRIN IV ONE (21:30)
[2020-11-22] MEDS ORDERED: DEXTROSE 50%-WATER 50 ML DISP.SYRIN IV ONE (21:30)
[2020-11-22] MEDS ORDERED: PIPERACILLIN /TAZOBACTAM 3.375 G in IV D5W 50 ML IV ONE (21:30)
[2020-11-22] MEDS ORDERED: CALCIUM CHLORIDE 1,000 MG/10 ML DISP.SYRIN ONE (21:40)
[2020-11-22] MEDS ORDERED: DEXTROSE 50%-WATER 50 ML DISP.SYRIN ONE (21:40)
[2020-11-22] MEDS ORDERED: INSULIN REGULAR, HUMAN 100 UNIT/ML 10 ML VIAL ONE (21:40)
[2020-11-22] MEDS ORDERED: PIPERACILLIN /TAZOBACTAM 3.375 G VIAL IV ONE (21:47)
--- NOTE | 2020-11-22 22:25 | NUR ---
BLOOD TRANSFUSION STARTED, PATINET VSS, WILL CONTINUE TO MONITOR.
--- NOTE | 2020-11-22 22:45 | NUR ---
BERTIN COLLECTED AND SENT TO LAB
--- NOTE | 2020-11-22 23:05 | NUR ---
REPORT GIVEN TO NURSE OLMSTEAD
[2020-11-22] MEDS ORDERED: HYDR-4075 PO (23:11)
[2020-11-22] MEDS ORDERED: ATOR10TA PO (23:11)
[2020-11-22] MEDS ORDERED: CARV3.12 PO (23:12)
[2020-11-22] MEDS ORDERED: MAG HYDROX/AL HYDROX/SIMETH 30 ML UDC PO PRN (23:30)
[2020-11-22] MEDS ORDERED: MAGNESIUM HYDROXIDE 30 ML UDC PO PRN (23:30)
[2020-11-22] MEDS ORDERED: Z GUARD REMEDY 2 OZ OINT TP PRN (23:30)
[2020-11-22] MEDS ORDERED: SODIUM POLYSTYRENE SULFONATE 15 G/60 ML BOTTLE PO ONE (23:30)
[2020-11-22] MEDS ORDERED: ONDANSETRON HCL/PF 4 MG/2 ML VIAL IVP PRN (23:30)
[2020-11-22] MEDS ORDERED: ZOLPIDEM TARTRATE 5 MG TABLET PO PRN (23:30)
[2020-11-23] VITALS (84 sets, daily range): BP systolic 73–129; BP diastolic 43–79
--- NOTE | 2020-11-23 00:04 | NUR ---
PATIENT TRANSFERRED UNDER ACLS
--- NOTE | 2020-11-23 00:10 | NUR ---
ICU/SEWER TAPPER RECIEVED PT FROM ER. PT WAS RECIEVING BLOOD TRANSFUSION. WOUND CARE WAS DONE. ALSO PHOTOGRAPHS OF WOUND DOCUMENTED.
[2020-11-23] MEDS ORDERED: NOREPINEPHRINE 8MG/250ML RTU 250 ML IV ONE (00:42)
--- NOTE | 2020-11-23 00:45 | NUR ---
ICU/OFFICE ANALYST ASKED MD GASPAR ABOUT GIVING KAYEXALATE FOR POTASSIUM OF 5.7, WITH RECTAL BLEEDING. SHE SAID NO AND TO D/C THIS.
--- NOTE | 2020-11-23 00:54 | NUR ---
ICU/EXTRACTOR OPERATOR HELPER LEVO STARTED BY CEO [place] NURSE FOR LOW BLOOD PRESSURE OF 70'S. WILL CONTINUE TO MONITOR THIS PT.
[2020-11-23] MEDS ORDERED: NOREPINEPHRINE 8 MG in IV NS 0.9% 242 ML IV PRN (01:00)
--- NOTE | 2020-11-23 01:10 | NUR ---
REGIONAL SALES COORDINATOR. F/C 16 FG INSERTED WITH OUT DIFFICULT. CONCENTRATED URINE DRAINING.
--- NOTE | 2020-11-23 01:20 | NUR ---
ICU/RESULTS ENGINEER BLOOD TRANSFUSION ENDED.
[2020-11-23] MEDS: IV D5/0.45 NACL 1,000 ML IV PRN ×2 (02:23→16:54)
[2020-11-23 02:57] LABS: BASOPHILS % (AUTO) 0.3 % (0.0-2.0); HEMATOCRIT 30 % (39-51); HEMOGLOBIN 9.9 g/dL (13.5-17.5); LYMPHOCYTES # (AUTO) 2.1 K/uL (0.8-4.8); LYMPHOCYTES % (AUTO) 17.8 % (20.0-44.0); MEAN CORPUSCULAR HGB CONC 33 g/dl (31.0-36.0); MEAN CORPUSCULAR VOLUME 87 fL (80-96); MONOCYTES # (AUTO) 0.7 K/uL (0.1-1.30); MONOCYTES % (AUTO) 6.2 % (2.0-12.0); NEUTROPHILS # (AUTO) 8.6 K/uL (1.8-8.9); NEUTROPHILS % (AUTO) 74.7 % (43.0-81.0); PLATELET COUNT (AUTO) 213 K/uL (150-450); RED BLOOD CELL COUNT(AUTO) 3.45 MIL/uL (4.5-6.0); WHITE BLOOD COUNT (AUTO) 11.5 K/uL (4.3-11.0)
--- NOTE | 2020-11-23 03:05 | NUR ---
ICU/CRANE HOOKER STABLE BP, LEVO OFF FOR NOW. WILL MONITOR THIS PT.
[2020-11-23 03:09] LABS: CALCIUM, SERUM 7.6 mg/dL (8.5-10.1); CARBON DIOXIDE 21 mmol/L (21-32); CHLORIDE 114 mmol/L (98-107); CREATININE 1.8 mg/dL (0.6-1.3); GLUCOSE 113 mg/dL (74-106); MAGNESIUM 2.5 mg/dL (1.8-2.4); PHOSPHORUS 3.9 mg/dL (2.5-4.9); POTASSIUM 4.8 mmol/L (3.5-5.1); SODIUM SERUM 144 mmol/L (136-145); UREA NITROGEN, BLOOD 65 mg/dL (7-18)
[2020-11-23 03:27] LABS: CHOLESTEROL 78 mg/dL (<200); HDL CHOLESTEROL 12 mg/dL (40-60); LDL 35 mg/dL (0-99); THYROID STIMULATING HORMONE 2.458 uIU/mL (0.358-3.74); TRIGLYCERIDES 157 mg/dL (30-150)
--- NOTE | 2020-11-23 03:55 | NUR ---
ICU/SHAFT TENDER RESTARTED THE LEVO FOR LOW BP 80'S. WILL MONITOR THIS PT.
[2020-11-23] MEDS: NOREPINEPHRINE 8 MG in IV NS 0.9% 242 ML IV PRN (04:38)
[2020-11-23] MEDS ORDERED: PIPERACILLIN /TAZOBACTAM 3.375 G VIAL IV ONE (04:44)
[2020-11-23] MEDS ORDERED: ZOSYN IVPB 3.375 G in IV D5W 50ml IV SCH (05:00)
--- NOTE | 2020-11-23 05:09 | NUR ---
ICU/COLLECTIONS DIRECTOR MANUAL BAR CODE WAS PUT IN FOR THE ZOSYN IVPB AND NEW LEVO DUE TO PHARMACY BEING CLOSED.
--- NOTE | 2020-11-23 07:00 | NUR ---
RN NOTES RECEIVED PT ON BED, ALERT/ DOES NOT FOLLOW COMMAND ,ON 2L O2 N/C, O2 SAT WNL, ON TELE SR , HR IN 70'S WITH PVC AND BBB , HERNANDEZ DRAINING TO GRAVITY, IVF AT 75CC/HR , LEVO AT .06 MCG/KG/MIN RUNNING FOR BP SUPPORT, SR UP x3, CALL LIGHT WITHIN EASY REACH, BED LOCKED AND IN LOWEST POSITION, CONTINUE TO MONITOR .
--- NOTE | 2020-11-23 07:18 | NUR ---
ICU/SUPERVISOR PAINTING SHIPYARD REPORT GIVEN TO DAY NURSE.
[2020-11-23] MEDS: PANTOPRAZOLE 40 MG VIAL IV SCH (08:20)
[2020-11-23 09:11] LABS: BILIRUBIN,URINE SMALL (NEGATIVE); COLOR,URINE YELLOW (YELLOW); LEUKOCYTE ESTERASE ,URINE NEGATIVE (NEGATIVE); NITRITE, URINE NEGATIVE (NEGATIVE); PH,URINE 5.5 (5.0-8.0); PROTEIN,URINE TRACE mg/dl (NEGATIVE); UGLUCOSE NEGATIVE (NEGATIVE)
[2020-11-23 09:16] LABS: BACTERIA,URINE Few /HPF (None Seen); RBC,URINE TOO NUMEROUS TO COUN /HPF (0-2); SQUAMOUS EPITHELIAL CELL,UR Few /HPF (None Seen)
[2020-11-23 09:17] LABS: URIC ACID CRYSTALS,URINE Moderate /HPF (None Seen)
[2020-11-23] MEDS: PIPERACILLIN /TAZOBACTAM 3.375 G in IV D5W 100 ML IV SCH ×2 (12:30→20:11)
--- NOTE | 2020-11-23 13:00 | NUR ---
RN NOTES RIGHT SUBCLAVIAN TLC PLACED BY DR TRISTAN AT THE BEDSIDE, VSS STABLE , CONTINUE TO MONITOR .
--- NOTE | 2020-11-23 14:00 | NUR ---
RN NOTES LEVO AT .08 MCG/KG/MIN RUNNING AT THIS TIME , CONTINUE TO MONITOR.
--- NOTE | 2020-11-23 14:30 | NUR ---
RN NOTES ONE SMALL AMOUNT OF BLOODY LOOSE STOOL NOTED , CONTINUE TO MONITOR VSS .
--- NOTE | 2020-11-23 18:23 | NUR ---
RN NOTES NO SIGNIFICANT CHANGES NOTED ON THIS SHIFT, LEVO DRIP AT .08MCG/KG/MIN RUNNING FOR BP SUPPORT , IVF AT 75CC /HR RUNNING AT THIS TIME, RIGHT SUBCLAVIAN TLC SITE CLEAN, DRY AND INTACT, SR UP x3, CALL LIGHT WITHIN EASY REACH, WILL ENDORSE TO SERVICE PARTS DRIVER NURSE FOR CONTINUE OF CARE .
--- NOTE | 2020-11-23 19:15 | NUR ---
RECEIVED PT ON BED, AWAKE DOES NOT FOLLOW COMMAND ,ON 2L O2 N/C, O2 SAT WNL, ON TELE SR HR IN 70'S WITH PVC AND BBB , R SUBCLAVIAN TLC PATENT AND FLUSHED WITH ONGOING D5 1/2 NS AT 75CC/HR , LEVO AT 0.04 MCG/KG/MIN RUNNING FOR BP SUPPORT INFUSING WELL, HERNANDEZ DRAINING TO GRAVITY, BED LOCKED AND IN LOWEST POSITION,SIDE RAILS UP X2 WILL CONTINUE TO MONITOR .
[2020-11-24] VITALS (48 sets, daily range): BP systolic 87–125; BP diastolic 45–79
--- NOTE | 2020-11-24 03:30 | NUR ---
BED BATH DONE TO THE PT TOLERATING WELL NO SIGN OF RESPIRATORY DISTRESS NOTED, WOUND TREATMENT ALSO DONE, PT HAVE SMALL BOWEL MOVEMENT STILL WITH BRIGHT RED COLORED STOOL SAME FROM ENDORSEMENT FROM AM SHIFT NURSE WILL CONT TO MONITOR
[2020-11-24 04:50] LABS: BASOPHILS % (AUTO) 0.4 % (0.0-2.0); EOSINOPHILS % (AUTO) 5.1 % (0.0-6.0); HEMATOCRIT 25 % (39-51); HEMOGLOBIN 8.4 g/dL (13.5-17.5); LYMPHOCYTES # (AUTO) 1.7 K/uL (0.8-4.8); LYMPHOCYTES % (AUTO) 19.6 % (20.0-44.0); MEAN CORPUSCULAR HGB CONC 34 g/dl (31.0-36.0); MEAN CORPUSCULAR VOLUME 88 fL (80-96); MONOCYTES # (AUTO) 0.5 K/uL (0.1-1.30); MONOCYTES % (AUTO) 5.5 % (2.0-12.0); NEUTROPHILS # (AUTO) 5.9 K/uL (1.8-8.9); NEUTROPHILS % (AUTO) 69.4 % (43.0-81.0); PLATELET COUNT (AUTO) 204 K/uL (150-450); RED BLOOD CELL COUNT(AUTO) 2.86 MIL/uL (4.5-6.0); WHITE BLOOD COUNT (AUTO) 8.5 K/uL (4.3-11.0)
[2020-11-24] MEDS: IV D5/0.45 NACL 1,000 ML IV PRN ×2 (05:04→18:38)
[2020-11-24] MEDS: PIPERACILLIN /TAZOBACTAM 3.375 G in IV D5W 100 ML IV SCH ×3 (05:04→20:29)
[2020-11-24] MEDS: NOREPINEPHRINE 8 MG in IV NS 0.9% 242 ML IV PRN (05:05)
[2020-11-24 05:11] LABS: ALBUMIN 1.5 g/dL (3.4-5.0); BILIRUBIN,TOTAL 0.9 mg/dL (0.2-1.0); CALCIUM, SERUM 7.4 mg/dL (8.5-10.1); CREATININE 1.3 mg/dL (0.6-1.3); MAGNESIUM 2.3 mg/dL (1.8-2.4); PHOSPHORUS 3.2 mg/dL (2.5-4.9); POTASSIUM 4.1 mmol/L (3.5-5.1)
--- NOTE | 2020-11-24 07:26 | NUR ---
PT ON BED AWAKE OPEN EYES BUT NOT FOLLOW TO ANY COMMAND STILL ON O2 2L VIA NC SPO2 98% NO SIGN OF RESPIRATORY DISTRESS, BEDSIDE MONITOR READS SINUS RHYTHM 70S STILL LEVO AT 0.04 MCG/KG/MIN AND D5 1/2 NS @ 75ML/HR, NO SIGNIFICANT CHANGES ON CONDITION NOTED, ALL NEEDS ATTENDED PT STILL ON NPO BED ON LOWEST POSITION AND LOCKED SIDE RAILS UP X2 CALL LIGHT WITHIN REACH WILL ENDORSED TO AM SHIFT NURSE
--- NOTE | 2020-11-24 08:00 | NUR ---
RN NOTES Received patient in the bed ,A/A/O x1, patient responds by waiving to me. patient on 022lnc 99%, no acute respiratory distress, total care. on bedside monitor shows SR 74 with PVC, and BBB. IV access on right upper chest infusing Levophed 0.04 mcg/kg/hr, D51/2 NS @ 75ml/hr, and Zosyn 25ml/hr intact. Holt draining via gravity. call light within to reach, assist turn and reposition q 2 hr. seen hospitalis. patient has GI consultation today. will monitoring.
[2020-11-24] MEDS: PANTOPRAZOLE 40 MG VIAL IV SCH (08:27)
[2020-11-24] MEDS: IV NS 0.9% 250 ML IV PRN (09:02)
[2020-11-24] MEDS: AMIODARONE HCL 200 MG TABLET PO SCH (11:30)
--- NOTE | 2020-11-24 11:45 | NUR ---
rn notes patient NPO and non administered amioderon 400 mg po as scheduled, because of GI bleeding, and waiting GI consultation. Dr Nichole notified. Per warehouse man if HR increased notify MD for iv infusion. will monitoring.
--- NOTE | 2020-11-24 14:11 | NUR ---
RN NOTES PER DAUGHTER NAME LUCREAGAN- JOSEAFO PATIENT DNR/DNI AT THIS TIME. NOTIFIED HOSPITALIST Dr JOHNSON FOR ORDERS.
--- NOTE | 2020-11-24 14:57 | NUR ---
RN NOTES PATIENT DNR/DNI AT THIS TIME CO-SIGNED WITH CHARGE NURSE JONATHAN HERRON.
--- NOTE | 2020-11-24 18:30 | NUR ---
rn notes seen patient GI Dr Voss , no procedure to be done, because of DNR/DNI. Daughter next to the bed. infusing D5W1/2 NS at 75 ml/hr, zosyn 25ml/hr on right subclavian TLC intact, assist turn and repostion x1, patient has BM with blood. call light within to reach. Patient get CCHO 60g diet. endorsed oncoming nurse follow plan of care.
--- NOTE | 2020-11-24 19:05 | NUR ---
RECEIVED PT ON BED, AWAKE DOES NOT FOLLOW COMMAND ,ON 2L O2 N/C, O2 SAT WNL, ON TELE SR HR IN 70'S WITH PVC AND BBB , R SUBCLAVIAN TLC PATENT AND FLUSHED WITH ONGOING D5 1/2 NS AT 75CC/HR , INFUSING WELL, HERNANDEZ DRAINING TO GRAVITY, BED LOCKED AND IN LOWEST POSITION,SIDE RAILS UP X2 WILL CONTINUE TO MONITOR .
[2020-11-25] VITALS (80 sets, daily range): BP systolic 64–133; BP diastolic 39–87
--- NOTE | 2020-11-25 03:48 | NUR ---
BED BATH DONE TO THE PT TOLERATING WELL NO SIGN OF RESPIRATORY DISTRESS NOTED, WOUND TREATMENT ALSO DONE, PT HAVE SMALL BOWEL MOVEMENT STILL WITH BRIGHT RED COLORED STOOL SAME YESTERDAY WILL CONT TO MONITOR
[2020-11-25 04:25] LABS: BASOPHILS % (AUTO) 0.2 % (0.0-2.0); EOSINOPHILS % (AUTO) 4.3 % (0.0-6.0); HEMATOCRIT 26 % (39-51); HEMOGLOBIN 8.8 g/dL (13.5-17.5); LYMPHOCYTES # (AUTO) 1.7 K/uL (0.8-4.8); LYMPHOCYTES % (AUTO) 24.9 % (20.0-44.0); MEAN CORPUSCULAR HGB CONC 34 g/dl (31.0-36.0); MEAN CORPUSCULAR VOLUME 89 fL (80-96); MONOCYTES # (AUTO) 0.5 K/uL (0.1-1.30); MONOCYTES % (AUTO) 6.7 % (2.0-12.0); NEUTROPHILS # (AUTO) 4.3 K/uL (1.8-8.9); NEUTROPHILS % (AUTO) 63.9 % (43.0-81.0); PLATELET COUNT (AUTO) 218 K/uL (150-450); RED BLOOD CELL COUNT(AUTO) 2.91 MIL/uL (4.5-6.0); WHITE BLOOD COUNT (AUTO) 6.8 K/uL (4.3-11.0)
[2020-11-25 04:51] LABS: CALCIUM, SERUM 7.3 mg/dL (8.5-10.1); CREATININE 1.1 mg/dL (0.6-1.3); POTASSIUM 3.9 mmol/L (3.5-5.1)
[2020-11-25] MEDS: PIPERACILLIN /TAZOBACTAM 3.375 G in IV D5W 100 ML IV SCH ×3 (04:54→21:07)
[2020-11-25] MEDS: IV D5/0.45 NACL 1,000 ML IV PRN ×2 (07:04→20:20)
--- NOTE | 2020-11-25 07:19 | NUR ---
PT ON BED AWAKE OPEN EYES BUT NOT FOLLOW TO ANY COMMAND STILL ON O2 2L VIA NC SPO2 98% NO SIGN OF RESPIRATORY DISTRESS, BEDSIDE MONITOR READS SINUS RHYTHM 70S ON D5 1/2 NS @ 75ML/HR, NO SIGNIFICANT CHANGES ON CONDITION NOTED, ALL NEEDS ATTENDED BED ON LOWEST POSITION AND LOCKED SIDE RAILS UP X2 CALL LIGHT WITHIN REACH WILL ENDORSED TO AM SHIFT NURSE
--- NOTE | 2020-11-25 07:51 | NUR ---
WOUND CARE CONSULT: PT PRESENTS WITH SACRAL DEEP TISSUE INJURY IN EVOLUTION AND INTACT FOOT/HEEL DEEP TISSUE INJURIES, PRESENT ON ADMISSION. RECOMMEND SURGICAL CONSULT. DR LUU NOTIFIED OF CONSULT REQUEST. RECOMMENDATIONS MADE FOR SKIN PROTECTION. DISCUSSED WITH NURSING STAFF. IN AGREEMENT WITH PLAN OF CARE. PT IS ON FIRST STEP [facility]. DIETARY CONSULT IN PLACE. Addendum: 11/25/20 at 0753 by RADHA HUBER Amended: Links added. Addendum: 11/25/20 at 0758 by RADHA PETERU DPM CONSULT ALSO REQUESTED FROM DR MAYNARD FOR HEEL AND FOOT INTACT DEEP TISSUE INJURIES.
--- NOTE | 2020-11-25 08:00 | NUR ---
RN NOTES PATIENT AWAKE, EYES IS OPEN BUT UNABLE TO VERBALIZE SELF, NO ACUTE RESPIRATORY DISTRESS, O2-2LNC. VSS, ON BEDSIDE HEART MONITOR SHOWS, SR 81 WITH COUPLETS, TRIGEMINI, AND PVC. PATIENT DNR/DNI, REFUSED BREAKFAST PUSHED BACK WITH HANDS, AND SPIT OUT FOOD. SEEN PATIENT VIA WOUND NURSE. PATIENT HAS BM WITH BLOOD, WOUND CARE DONE. PATIENT WILL FOLLOW WOUND SURGEON. ASSIST TURN AND REPOSTION Q 2 HR, AND PRN. IV ACCESS ON RIGHT UPPER SUBCLAVIAN AREA INTACT, INFUSING D5W1/2 NS AT 75 ML/HR INTACT, AND ZOSYN 25ML/HR. CALL LIGHT WITHIN TO REACH. WILL MONITORING.
[2020-11-25] MEDS: PANTOPRAZOLE 40 MG VIAL IV SCH (08:59)
[2020-11-25] MEDS: AMIODARONE HCL 200 MG TABLET PO SCH (09:00)
--- NOTE | 2020-11-25 09:00 | NUR ---
rn notes patient HR from 81 increased 155, administered scheduled medication amiodarone 200 mg po. same time bp drop 71/49 , notified Dr Easton waiting for respond. patient tolerated breakfast 30% with total assist.
--- NOTE | 2020-11-25 10:14 | NUR ---
RN NOTES GET CALL BACK FROM MD GARAY BOX STACKER , AND NEW ORDER IS ADMINISTER NS -250 ML BLOUSE. ORDER TAKEN AND CARRIED OUT.
[2020-11-25] MEDS ORDERED: IV NS 0.9% 250 ML IV ONE ×2 (10:30→12:00)
--- NOTE | 2020-11-25 10:32 | NUR ---
RN NOTES ON BEDSIDE MONITOR SHOWS HR-91AT THIS TIME , AND BP-106/67, NS-250ML OF BLOUSE ADMINISTERING. WILL MONITORING.
--- NOTE | 2020-11-25 11:41 | NUR ---
rn notes patient BP drop 88/51, P-88 at this time. Per hospitalist Dr Carbajal get new order another NS 250ml of bolus to administer. order taken and carried out.
[2020-11-25] MEDS: IV NS 0.9% 250 ML IV PRN (13:22)
[2020-11-25] MEDS ORDERED: SILVER NITRATE APPLICATOR 1 EA BOX TP PRN (14:30)
[2020-11-25] MEDS ORDERED: LIDOCAINE 1%-EPI 1:100,000 20 ML VIAL TP ONE (14:30)
--- NOTE | 2020-11-25 14:35 | NUR ---
rn notes per wound surgeon patient get order serial dbridement of sacrum, called daughter name Cliff miles and get TO consent order. co-sign with co -worker GOPAL Gonzales.
--- NOTE | 2020-11-25 18:30 | NUR ---
RN NOTES PATIENT DUE MEDICATION ADMINISTERED, VSS, MOUTH CARE DONE, PATIENT TOLERATED DINNER 100% WITH TOTAL ASSIST. INFUSING D5W1/2 NS @75ML/HR, PATIENT HAS BM WITH BLOOD. ASSIST TURN AD REPOSTION Q 2 HR. ENDORSED ONCOMING NURSE KRISTINA.
--- NOTE | 2020-11-25 19:45 | NUR ---
ICU/PHYSICIANS ASSISTANT RECIEVED REPORT FROM DAY SHIFT NURSE. SEE FLOWSHEET FOR ASSESSMENT, ALONG WITH SKIN ISSUES THAT ARE ADDRESSED ON THE FLOWSHEET ALONG WITH INTERVENTIONS. THERE IS NO IV DRIPS TO ADDRESS. PT WAS TURNED AND REPOSITIONED FOR COMFORT AND CARE.
[2020-11-25] MEDS: DAKINS QUARTER STRENGTH (0.125%) 480 ML BOTTLE TOP SCH (19:49)
--- NOTE | 2020-11-25 22:30 | NUR ---
ICU/DATA SCIENCES DIRECTOR PT WAS GIVEN ORAL CARE AT THIS TIME ALONG WITH PM CARE. PT TOLERATED THIS WELL, PT REMAINS ON 2 LITERS VIA N/C, WITH SATURATION AT 98-100%. PT WAS TURNED AND REPOSITIONED FOR COMFORT AND CARE. NO ACUTE DISTRESS SEEN AT THIS TIME. WILL CONTINUE TO MONITOR THIS PT.
[2020-11-26] VITALS (42 sets, daily range): BP systolic 67–146; BP diastolic 35–93
--- NOTE | 2020-11-26 00:05 | NUR ---
ICU/SENIOR PROGRAM PLANNER PT WAS TURNED AND REPOSITIONED FOR COMFORT AND CARE. NO ACUTE DISTRESS SEEN AT THIS TIME. WILL CONTINUE TO MONITOR THIS PT.
--- NOTE | 2020-11-26 02:45 | NUR ---
ICU/BISQUE FINISHER PT WAS GIVEN ORAL CARE AT THIS TIME ALONG WITH AM CARE. PT TOLERATED THIS WELL, PT REMAINS ON 2 LITERS VIA N/C, WITH SATURATION AT 98-100%. AT THIS TIME WOUND CARE WAS DONE, TO SACRAL AREA. PT WAS TURNED AND REPOSITIONED FOR COMFORT AND CARE. NO ACUTE DISTRESS SEEN AT THIS TIME. WILL CONTINUE TO MONITOR THIS PT.
--- NOTE | 2020-11-26 04:35 | NUR ---
ICU/CARE CLINICIAN NO MORNING LABS SEEN FOR THIS PT AT THIS TIME.
[2020-11-26] MEDS: PIPERACILLIN /TAZOBACTAM 3.375 G in IV D5W 100 ML IV SCH ×3 (05:30→21:16)
--- NOTE | 2020-11-26 06:55 | NUR ---
ICU/CROWN AND BRIDGE DENTAL LAB TECHNICIAN REPORT GIVEN TO DAY RN FOR CONTINUITY OF CARE.
--- NOTE | 2020-11-26 08:00 | NUR ---
MOTOR VEHICLES INSPECTOR PT AROUSEABLE. DOES NOT FOLLOW COMMANDS EVEN WITH NURSES AIDE.
[2020-11-26] MEDS: PANTOPRAZOLE 40 MG VIAL IV SCH (10:22)
[2020-11-26] MEDS: AMIODARONE HCL 200 MG TABLET PO SCH (10:23)
[2020-11-26] MEDS: DAKINS QUARTER STRENGTH (0.125%) 480 ML BOTTLE TOP SCH (10:24)
--- NOTE | 2020-11-26 12:00 | NUR ---
SCHOOL PRINCIPAL S/P DEBRIDEMENT, NEW DRESSINGS PLACED.
--- NOTE | 2020-11-26 12:00 | NUR ---
INCIDENT HANDLER NO INTEREST IN EATING. NO NEW C/O
[2020-11-26] MEDS: IV D5/0.45 NACL 1,000 ML IV PRN (13:00)
--- NOTE | 2020-11-26 18:00 | NUR ---
TREATING INSPECTOR CLEANED REPOSITIONED
--- NOTE | 2020-11-26 18:15 | NUR ---
@ 1800 PT HR JUMP TO 150'S FROM 70'S ORDER STAT EKG AND INFORMED DR. GARAY AND DR. BOSS, DR BOSS/DR GARAY ORDER TO START PT ON AMIODARONE DRIP PER PROTOCOL NOTED AND CARRIED OUT
[2020-11-26] MEDS ORDERED: AMIODARONE 150 MG in IV D5W 100 ML IV ONE (18:30)
[2020-11-26] MEDS: AMIODARONE 450 MG in IV D5W 241 ML IV PRN (19:03)
[2020-11-26] MEDS: NOREPINEPHRINE 8 MG in IV NS 0.9% 242 ML IV PRN (19:10)
--- NOTE | 2020-11-26 19:15 | NUR ---
ICU/PROFESSOR OF VEGETABLE SCIENCE RECIEVED REPORT FROM DAY SHIFT NURSE. SEE FLOWSHEET FOR ASSESSMENT, ALONG WITH SKIN ISSUES THAT ARE ADDRESSED ON THE FLOWSHEET ALONG WITH INTERVENTIONS. THERE ARE IV DRIPS THAT ARE ADDRESS, PT IS ON AMIO FOR INCREASED HEART RATE AND JOYCE FOR LOW BLOOD PRESSURE, THESE ARE TITRATED ON FLOWSHEET. PT WAS TURNED AND REPOSITIONED FOR COMFORT AND CARE.
[2020-11-26] MEDS ORDERED: PHENYLEPHRINE 50 MG in IV NS 0.9% 245 ML IV PRN (19:30)
--- NOTE | 2020-11-26 20:52 | NUR ---
ICU/LUBRICATING ENGINEER PT'S HEART RATE CAME DOWN TO 80'S FROM 150'S-140'S. PT REMAINS IN AFIB AND CONTINUES TO BE ON AMIO DRIP. WILL CONTINUE TO MONITOR THIS PT AND HIS HEART RATE.
--- NOTE | 2020-11-26 22:42 | NUR ---
ICU/BLISTER RUST ERADICATOR STABLE BLOOD PRESSURE, JOYCE WAS PLACED ON HOLD. WILL CONTINUE TO MONITOR THIS PT AND HIS BLOOD PRESSURE.
[2020-11-27] VITALS (48 sets, daily range): BP systolic 74–141; BP diastolic 42–94
--- NOTE | 2020-11-27 01:10 | NUR ---
ICU/BOBJ DEVELOPER AMIO DRIP WAS DECREASED DOWN TO 0.5MG FROM 1. WILL CONTINUE TO MONITOR THIS PT'S HEART RATE.
[2020-11-27] MEDS: AMIODARONE 450 MG in IV D5W 241 ML IV PRN (01:17)
[2020-11-27] MEDS: IV NS 0.9% 250 ML IV PRN (03:19)
[2020-11-27] MEDS: IV D5/0.45 NACL 1,000 ML IV PRN ×2 (03:19→15:15)
--- NOTE | 2020-11-27 04:07 | NUR ---
ICU/ENGINEERING FACULTY PT WAS GIVEN ORAL CARE AT THIS TIME ALONG WITH AM CARE. PT TOLERATED THIS WELL, PT REMAINS ON 2 LITERS VIA N/C, WITH SATURATION AT 98-100%. AT THIS TIME WOUND CARE WAS DONE, TO SACRAL AREA. PT WAS TURNED AND REPOSITIONED FOR COMFORT AND CARE. NO ACUTE DISTRESS SEEN AT THIS TIME. WILL CONTINUE TO MONITOR THIS PT. PT REMAINS ON 0.5 AMIO DRIP WITH HEART RATE 60'S AFIB, WILL CONTINUE TO MONITOR THIS PT.
[2020-11-27 04:40] LABS: BASOPHILS # (AUTO) 0.1 K/uL (0.0-0.2); BASOPHILS % (AUTO) 0.8 % (0.0-2.0); EOSINOPHILS % (AUTO) 2.7 % (0.0-6.0); HEMATOCRIT 25 % (39-51); HEMOGLOBIN 8.4 g/dL (13.5-17.5); LYMPHOCYTES # (AUTO) 1.8 K/uL (0.8-4.8); LYMPHOCYTES % (AUTO) 23.6 % (20.0-44.0); MEAN CORPUSCULAR HGB CONC 34 g/dl (31.0-36.0); MEAN CORPUSCULAR VOLUME 89 fL (80-96); MONOCYTES # (AUTO) 0.5 K/uL (0.1-1.30); NEUTROPHILS # (AUTO) 4.9 K/uL (1.8-8.9); NEUTROPHILS % (AUTO) 65.9 % (43.0-81.0); PLATELET COUNT (AUTO) 262 K/uL (150-450); RED BLOOD CELL COUNT(AUTO) 2.81 MIL/uL (4.5-6.0); WHITE BLOOD COUNT (AUTO) 7.5 K/uL (4.3-11.0)
[2020-11-27 04:55] LABS: ALBUMIN 1.5 g/dL (3.4-5.0); BILIRUBIN,TOTAL 0.7 mg/dL (0.2-1.0); CALCIUM, SERUM 7.3 mg/dL (8.5-10.1); CREATININE 0.9 mg/dL (0.6-1.3); MAGNESIUM 1.9 mg/dL (1.8-2.4); PHOSPHORUS 2.1 mg/dL (2.5-4.9); POTASSIUM 3.3 mmol/L (3.5-5.1); TOTAL PROTEIN, SERUM 4.9 g/dL (6.4-8.2)
[2020-11-27] MEDS: PIPERACILLIN /TAZOBACTAM 3.375 G in IV D5W 100 ML IV SCH ×3 (05:07→20:48)
--- NOTE | 2020-11-27 08:00 | NUR ---
REFERRAL AGENT RECEIVED PT AWAKE, NONVERBAL, DOES NOT INTERACT. SR WITH BBB WITH OCC PVC SEEN ON MONITOR. AMIODARONE DRIP INFUSING PER CENTRAL LINE. GOOD URINE OUTPUT.
[2020-11-27] MEDS: DAKINS QUARTER STRENGTH (0.125%) 480 ML BOTTLE TOP SCH (08:49)
[2020-11-27] MEDS: PANTOPRAZOLE 40 MG VIAL IV SCH (08:49)
--- NOTE | 2020-11-27 10:32 | NUR ---
Social Worker Aide note: Social Worker Aide consultation received. Patient was admitted to [facility] on 11/22/20 from [facility], where patient was also under hospice care. Per case management, patient's daughter is requesting for patient to be DC-ed back to the same [facility] once medically stable, and resume hospice services through [facility]. Social Worker Aide will remain available, as needed.
[2020-11-27] MEDS: POTASSIUM CL. PREMIX PERIPHER. 50 ML IV SCH ×2 (11:51→12:56)
[2020-11-27] MEDS: METOPROLOL TARTRATE 25 MG TABLET PO SCH ×2 (15:30→20:49)
[2020-11-27] MEDS ORDERED: Sodium Phosphate 15 MMOL in IV NS 0.9% 250 ML IV ONE (16:30)
--- NOTE | 2020-11-27 17:00 | NUR ---
RNICU PT TRANSFERRED TO [facility] 115-1 BY BED WITH MONITOR. CARE ENDORSED TO HALLIE HERRON. DAUGHTER NELLIE NOTIFIED BY PHONE OF TRANSFER.
--- NOTE | 2020-11-27 18:59 | NUR ---
LAP WELDER NOTES 1720-Received patient from ICU, Awake, arousable to tactile stimuli, not oriented nor verbal as baseline, no respiratory distress, no SOB, on room air 95%. Tele reading sinus rythm AVV 1st degree AV block. Has clean dressings on lower extremities, and sacrum. Safety precautions implemented, bed locked in lowest position, call light within reach. 1900-RN CLOSING NOTES Patient is asleep arousable to tactile stimuli, non verbal-not oriented per baseline, Telereading sinus rythm AVV 1st degree AV block, with ongoing IV, Right subclavian TLC with clean dressings. Changed dressings and linens, BM x 1 small noted brown soft, F/C patent, safety precautions implemented, bed locked in lowest position, call light within reach.
--- NOTE | 2020-11-27 19:30 | NUR ---
RN NOTE PATIENT IN BED AWAKE AND ALERT. OPENS EYES, NON VERBAL. NO SIGNS OF DISCOMFORT. IV ACCESS ON RIGHT SUBCLAVIAN TLC, PATENT AND INTACT. ON O2 2L VIA NASAL CANNULA, NO SIGNS OF ACUTE DISTRESS. BED LOCKED AND IN LOWEST POSITION. CALL LIGHT WITHIN REACH. ALL NEEDS ANTICIPATED.
--- NOTE | 2020-11-27 23:30 | NUR ---
ENDORSED TO DALI HERRON FOR CONTINUATION OF CARE.
[2020-11-28] VITALS: BP 124/64
[2020-11-28 04:00] VITALS: BP 129/59
--- NOTE | 2020-11-28 07:49 | NUR ---
RN OPENING NOTES Pt is awake, alert to stimuli only, non-verbal/not oriented, On 2 liters via NC satting well >95%. No respiratory distress, no SOB. F/C patent, safety precautions implemented, bed locked in lowest position, call light within reach.
[2020-11-28 08:00] VITALS: BP 96/52
[2020-11-28] MEDS: PANTOPRAZOLE 40 MG VIAL IV SCH (08:02)
[2020-11-28] MEDS: METOPROLOL TARTRATE 25 MG TABLET PO SCH ×2 (08:03→20:34)
[2020-11-28] MEDS: DAKINS QUARTER STRENGTH (0.125%) 480 ML BOTTLE TOP SCH (08:04)
--- NOTE | 2020-11-28 08:05 | NUR ---
GOPAL MCKENZIE B/P , [facility].
[2020-11-28 08:53] LABS: CREATININE 1.1 mg/dL (0.6-1.3); PHOSPHORUS 2.3 mg/dL (2.5-4.9); POTASSIUM 3.6 mmol/L (3.5-5.1)
[2020-11-28 12:00] VITALS: BP 105/49
[2020-11-28] MEDS: PROSOURCE / PROSTAT (PYXIS) 30 ML UDC PO SCH ×3 (12:00→16:26)
[2020-11-28] MEDS ORDERED: K PHOS NEUTRAL 250 MG TABLET PO ONE (15:30)
[2020-11-28 16:00] VITALS: BP 110/60
[2020-11-28] MEDS: WARFARIN SODIUM 2 MG TABLET PO SCH (16:25)
[2020-11-28] MEDS: IV D5/0.45 NACL 1,000 ML IV PRN (16:30)
--- NOTE | 2020-11-28 19:07 | NUR ---
RN CLOSING NOTES Pt is Alert to stimuli, no respiratory distress, no SOB, tele reading 1st degree AV block/BBB, HR 70's. HOB maintained elevated. Ate >75% of all meals, Ongoing IV hydration 75cc/hr. F/C patent. Wound care rendered, Safety precautions implemented, bed locked in lowest position, call lgt within reach. Spoke with daughter Lizzy and Grandanna marie Das aware of shift status and updated.
--- NOTE | 2020-11-28 20:00 | NUR ---
RECEIVED PATIENT IN BED, ALERT/ORIENTED X1, 4LPM VIA NC, CALM, NON-VERBAL, NOT IN APPARENT DISTRESS, RIGHT SUBCLAVIAN CENTRAL LINE, TRIPLE LUMEN, HL ONLY, HERNANDEZ CATHETER DRAINING, CLEAR YELLOW URINE OUTPUT, KEPT HOB ELEVATED, ASPIRATION PRECAUTION, PUREED AND NECTAR THICK LIQUID, HEELS OFFLOADED, WILL CONTINUE TO MONITOR.
[2020-11-28 20:31] VITALS: BP 119/56
[2020-11-29 00:28] VITALS: BP 126/64
[2020-11-29 04:00] VITALS: BP 119/71
--- NOTE | 2020-11-29 06:28 | NUR ---
ALERT/ORIENTED X1, 4LPM VIA NC, DNR/DNI, NO DISTRESS, NON-VERBAL, COOPERATIVE WITH CARE, BM X2, DARK, LIQUID STOOL, HX OF GI BLEED, NO INTERVENTION PLANNED, WITH EPISODE OF TACHYCARDIA, PER CARDIO, SECONDARY TO CARDIOMYOPATHY, SPEECH EVAL AND TREATMENT, CURRENTLY ON PUREED DIET, RESUMED COUMADIN, INR RANGE 2-3 DUE TO INCREASED RISK OF GI BLEEDING. IVF DISCONTINUED, PATIENT PREVIOUSLY ON HOSPICE.
[2020-11-29 07:19] LABS: BASOPHILS % (AUTO) 0.6 % (0.0-2.0); EOSINOPHILS % (AUTO) 2.7 % (0.0-6.0); HEMATOCRIT 25 % (39-51); HEMOGLOBIN 8.4 g/dL (13.5-17.5); LYMPHOCYTES # (AUTO) 2.1 K/uL (0.8-4.8); LYMPHOCYTES % (AUTO) 30.6 % (20.0-44.0); MEAN CORPUSCULAR HGB CONC 34 g/dl (31.0-36.0); MEAN CORPUSCULAR VOLUME 90 fL (80-96); MONOCYTES # (AUTO) 0.5 K/uL (0.1-1.30); MONOCYTES % (AUTO) 7.9 % (2.0-12.0); NEUTROPHILS % (AUTO) 58.2 % (43.0-81.0); PLATELET COUNT (AUTO) 301 K/uL (150-450); RED BLOOD CELL COUNT(AUTO) 2.76 MIL/uL (4.5-6.0); WHITE BLOOD COUNT (AUTO) 6.8 K/uL (4.3-11.0)
--- NOTE | 2020-11-29 07:19 | NUR ---
CABLE DISPATCHER OPENING NOTES RECEIVED PATIENT RESTING IN BED, PATIENT IS AWAKE, NONVERBAL RESPONDS TO VERBAL AND TACTILE STIMULI. PATIENT IS BREATHING EVENLY AND NONLABORED ON 4LPM VIA NASAL CANNULA. NO SIGNS OF DISTRESS NOTED. PATIENT DOES NOT SHOW ANY SIGNS OR SX OF PAIN AT THIS TIME. PATIENT HAS IV ACCESS ON R SUBCLAVIAN TRIPLE LUMAN, PATENT AND INTACT. PATIENT IS ON TELE MONITOR SHOWING NSR WITH EPISODES OF TACHYCARDIA. SAFETY MEASURES IN PLACE BED LOW LOCKED AND CALL LIGHT WITHIN REACH, WILL CONTINUE TO MONITOR
[2020-11-29 07:40] LABS: PHOSPHORUS 2.7 mg/dL (2.5-4.9); POTASSIUM 3.4 mmol/L (3.5-5.1)
[2020-11-29 08:00] VITALS: BP 115/80
--- NOTE | 2020-11-29 08:00 | NUR ---
RN NOTE PATIENTS HR NOTED TO BE AT 145 AND BP 96/63, MD NOTIFIED, STATED OKAY TO GIVE DAILY DOSE OF METOPROLOL ALSO ADDED DIGOXIN 0.125MG AND TO NOTIFY DR GARAY.
[2020-11-29] MEDS: METOPROLOL TARTRATE 25 MG TABLET PO SCH ×2 (08:16→21:25)
[2020-11-29] MEDS: PANTOPRAZOLE 40 MG VIAL IV SCH (08:16)
[2020-11-29] MEDS: DAKINS QUARTER STRENGTH (0.125%) 480 ML BOTTLE TOP SCH (08:17)
[2020-11-29] MEDS: PROSOURCE / PROSTAT (PYXIS) 30 ML UDC PO SCH ×3 (08:17→16:06)
[2020-11-29] MEDS ORDERED: DIGOXIN INJ 0.5 MG/2 ML AMPUL IV ONE (09:30)
--- NOTE | 2020-11-29 09:40 | NUR ---
RN NOTE HR DECREASED TO 84, DR GARAY STATED TO HOLD DIGOXIN AT THIS TIME, WILL CONTINUE TO MONITOR
[2020-11-29] MEDS ORDERED: POTASSIUM CHLORIDE 20 MEQ TAB.PRT.SR PO SCH (10:00)
[2020-11-29 12:06] VITALS: BP 106/61
[2020-11-29] MEDS ORDERED: IV NS 0.9% 500 ML BAG IV ONE (14:00)
--- NOTE | 2020-11-29 14:21 | NUR ---
RN NOTE DR GARAY GAVE NEW ORDER FOR NS 500ML BOLUS AND AMIODARONE DRIP PER PHARMACY DOSING, WILL CONTINUE TO MONITOR
[2020-11-29] MEDS ORDERED: AMIODARONE 150 MG in IV D5W 100 ML IV ONE (15:00)
[2020-11-29] MEDS: AMIODARONE 450 MG in IV D5W 241 ML IV PRN ×2 (15:28→21:27)
--- NOTE | 2020-11-29 15:34 | NUR ---
RN NOTE STARTED AMIODARONE DRIP VITALS STABLE POST FIRST BOLUS. WILL CONTINUE TO MONITOR
[2020-11-29] MEDS: WARFARIN SODIUM 2 MG TABLET PO SCH (16:05)
[2020-11-29 16:07] VITALS: BP 124/76
--- NOTE | 2020-11-29 18:22 | NUR ---
ON CALL CLOSING NOTES PATIENT RESTING IN BED, PATIENT IS AWAKE, NONVERBAL RESPONDS TO VERBAL AND TACTILE STIMULI. PATIENT IS BREATHING EVENLY AND NONLABORED ON 4LPM VIA NASAL CANNULA. NO SIGNS OF DISTRESS NOTED. PATIENT DOES NOT SHOW ANY SIGNS OR SX OF PAIN AT THIS TIME. PATIENT HAS IV ACCESS ON R SUBCLAVIAN TRIPLE LUMAN, PATENT AND INTACT RUNNING AMIODARONE 1MG/HR DRIP. PATIENT IS ON TELE MONITOR SHOWING NSR AT THIS TIME. ALL MEDICATIONS WERE GIVEN ORDERED. SAFETY MEASURES IN PLACE BED LOW LOCKED AND CALL LIGHT WITHIN REACH, WILL ENDORSE TO ONCOMING SHIFT.
[2020-11-29 20:00] VITALS: BP 110/56
--- NOTE | 2020-11-29 20:00 | NUR ---
Carlo rn notes Patient received in bed alert but non verbal , On u liters of o2via nc with 02 saturation of 98%.Patient noted to be sinus rhytm -72 on rn cardiac rehab but free of any s/sx. no sob no distress noted no pain or discomfort. Holt cath in place and noted with clear yellow urine output. Iv to right subclavian intact and patent , HOB kept elevated. on amiodarone drip received at 1mcg /kg/hr continue to monitor infusing well Call light with in reach. Bed is in lowest and locked position.v/s stable afebrile .all needs attended too , will continue to monitor pts.
--- NOTE | 2020-11-29 21:27 | NUR ---
ROSA RN NOTES AMIODARONE DRIP TITRATED TO 0.5 MCG /KG/HR ORDERED , INFUSING WELL. NO SOB NO DISTRESS NOTED.WILL CONTINUE TO MONITOR.
[2020-11-30] VITALS: BP 104/50
[2020-11-30 04:00] VITALS: BP 110/57
[2020-11-30 06:34] LABS: BASOPHILS % (AUTO) 0.2 % (0.0-2.0); EOSINOPHILS % (AUTO) 2.2 % (0.0-6.0); HEMATOCRIT 23 % (39-51); LYMPHOCYTES # (AUTO) 2.4 K/uL (0.8-4.8); LYMPHOCYTES % (AUTO) 34.5 % (20.0-44.0); MEAN CORPUSCULAR HGB CONC 34 g/dl (31.0-36.0); MEAN CORPUSCULAR VOLUME 91 fL (80-96); MONOCYTES # (AUTO) 0.6 K/uL (0.1-1.30); MONOCYTES % (AUTO) 8.5 % (2.0-12.0); NEUTROPHILS # (AUTO) 3.8 K/uL (1.8-8.9); NEUTROPHILS % (AUTO) 54.6 % (43.0-81.0); PLATELET COUNT (AUTO) 292 K/uL (150-450); RED BLOOD CELL COUNT(AUTO) 2.57 MIL/uL (4.5-6.0)
[2020-11-30 06:38] LABS: CALCIUM, SERUM 7.1 mg/dL (8.5-10.1); CREATININE 0.8 mg/dL (0.6-1.3); POTASSIUM 3.4 mmol/L (3.5-5.1)
--- NOTE | 2020-11-30 06:55 | NUR ---
ROSA RN NOTES Patient in bed, ALERT NON VERBAL . Patient denies pain or discomfort. Holt cath in place draining to gravity clear urine. Sinus RHYTHM on telemonitoring.ON AMIO DRIP AT 0.5 MCG /KG /HR CONNECTED TO RIGHT SUBCLAVIAN CENTRAL LINE DUE UNTILL 3:30PM . All orders and medications administered through shift. Pt kept clean and dry. No acute distress noted at this time. Endorsed to morning shift RN
--- NOTE | 2020-11-30 07:15 | NUR ---
RN Opening Notes Received patient resting in bed, sleeping but is arousable and responds to verbal and tactile stimuli. Patient is on O2 at 4lpm via NC, No SOB, No s/sx of distress noted. Patient is stable and no signs of pain noted. Central Line on Right Subclavian x3 lumens patent and intact, dressing clean and dry. Patient's taylor cath intact, below bladder level and draining yellow urine. Patient on tele monitor and is currently on Amiodarone drip 0.5mg/min. Call light within easy reach, bed alarm on. Will continue to monitor
[2020-11-30 08:00] VITALS: BP 117/67
[2020-11-30] MEDS: METOPROLOL TARTRATE 25 MG TABLET PO SCH ×2 (08:46→20:38)
[2020-11-30] MEDS: AMIODARONE HCL 200 MG TABLET PO SCH (08:46)
[2020-11-30] MEDS: PANTOPRAZOLE 40 MG TABLET.DR PO SCH (08:46)
[2020-11-30] MEDS: PROSOURCE / PROSTAT (PYXIS) 30 ML UDC PO SCH ×3 (08:47→17:55)
[2020-11-30] MEDS: DAKINS QUARTER STRENGTH (0.125%) 480 ML BOTTLE TOP SCH (08:48)
--- NOTE | 2020-11-30 09:30 | NUR ---
RN NOTES DUE MEDS GIVEN
[2020-11-30] MEDS ORDERED: POTASSIUM CHLORIDE 20 MEQ TAB.PRT.SR PO ONE (10:30)
[2020-11-30 12:00] VITALS: BP 101/65
--- NOTE | 2020-11-30 12:00 | NUR ---
RN Notes Notified CHAIN MAKER MACHINE Denita Dumas of patient's worsening LUE edema +4, warm to touch, tenderness noted. Per CHAIN MAKER MACHINE, she will review chart and might order US to rule out DVT. Will continue to monitor patient.
--- NOTE | 2020-11-30 14:55 | NUR ---
RN Notes Reported LUE Duplex US results to Denita JOHNSTON, positive for DVT subclavian, Axillary and brachial. MECHANICAL TEST TECHNICIAN gave order to start Heparin drip, PTT stat ordered and Heparin drip order with updated patient's weight faxed to pharmacy. Patient's daughter Lizzy also notified via phone, daughter is aware of risks and benefits of heparin drip and is in agreement. Will continue to monitor. Patient stable at this time
[2020-11-30 16:00] VITALS: BP 120/66
[2020-11-30] MEDS: WARFARIN SODIUM 2 MG TABLET PO SCH (17:55)
--- NOTE | 2020-11-30 18:57 | NUR ---
RN Notes Patient comfortably resting in bed, non-verbal but easily arousable and responsive to verbal and tactile stimuli. Patient's VS stable, no SOB on O2 @2lpm Via NC. No signs of pain and discomfort. Holt cath patent and intact draining ayaka urine and drainage bag below level of bladder. IV access on Subclavian x3 lumens intact and patent. Patient's LUE US came back positive for DVT and GLASS DEPOSITION TENDER Denita notified with order to start Heparin drip. Order placed along with PTT stat, followed up with lab multiple times regarding drawing PTT stat. Still awaiting PTT levels at this time, will endorse to incoming RN about heparin drip and plan of care for continuity of care. Call light within reach, bed locked and in lowest position, bed alarm on.
[2020-11-30 20:00] VITALS: BP 122/65
[2020-11-30] MEDS: HEPARIN INFUSION/D5W 500 ML IV PRN (20:02)
--- NOTE | 2020-11-30 20:15 | NUR ---
RN NOTE RECEIVED PT IN BED, AWAKE, NON VERBAL. NO S/SX OF DISTRESS NOTED. ON O2 VIA NC AT 2LPM. ON TELE MONITORING SHOW SR WITH BBB. HEPARIN DRIP STARTED PER PROTOCOL, AT 1100 U/HR. R SUBCLAVIAN IV PATENT AND INTACT. HERNANDEZ IN PLACE DRAINING CLEAR YELLOW URINE. WILL CONTINUE TO MONITOR. ALL SAFETY IN PLACE.
[2020-12-01] VITALS: BP 120/59
--- NOTE | 2020-12-01 02:45 | NUR ---
rn note pt scheduled for ptt draw at 0200. already called grease cup filler to follow up. awaiting for blood draw. charge nurse made aware.
--- NOTE | 2020-12-01 03:22 | NUR ---
RN NOTE UNABLE TO REACH INTERPRETER AND TRANSLATOR, BEEN CALLING LABS SINCE THE FIRST CALL, UNTIL NOW PTT HAS NOT DRAWN YET.
--- NOTE | 2020-12-01 03:54 | NUR ---
RN NOTE NOTIFIED STATOR WINDER, DR CROUCH REGARDING PTT NOT BEING DRAWN UNTIL THIS TIME. WILL CONTINUE TO MONITOR. AND CONTINUE WITH HEPARIN DRIP AT 1100U/HR.
[2020-12-01 04:00] VITALS: BP 122/68
--- NOTE | 2020-12-01 04:55 | NUR ---
RN NOTE PTT RESULT 68.1. NO CHANGE ON RATE PER PROTOCOL. CONTINUE HEPARIN DRIP AT 1100U/HR. WILL CONTINUE TO MONITOR.
--- NOTE | 2020-12-01 07:15 | NUR ---
RN CLOSING NOTE PT SLEEPING AROUSES EASILY. NOT IN ANY DISTRESS. TOLERATING ROOM AIR. DENIES SOB. HERNANDEZ DRAINING WELL, NO HEMATURIA NOTED. PT REMAIN AFEBRILE. CONTINUE ON IVF NS. PT COMPLAINED OF NECK AND LEG PAIN. OFFERED NORCO ORDERED. PT REFUSED NORCO AND REQUESTED FOR MORPHINE, ENDORSED TO NEXT SHIFT NURSE. ALL SAFETY MEASURE MAINTAINED.
--- NOTE | 2020-12-01 07:20 | NUR ---
RN Opening Notes Received patient resting in bed, sleeping but is arousable and responds to verbal and tactile stimuli. Patient is on O2 at 4lpm via NC, No SOB, No s/sx of distress noted. Patient is stable and no signs of pain noted. Central Line on Right Subclavian x3 lumens patent and intact, dressing clean and dry. Patient's taylor cath intact, below bladder level and draining yellow urine. Patient on heparin drip as ordered. Call light within easy reach, bed alarm on. Will continue to monitor
--- NOTE | 2020-12-01 07:30 | NUR ---
RN NOTE PT SLEEPING AROUSES EASILY. NOT IN ANY DISTRESS. CONTINUE ON HEPARIN DRIP AT 1100U/HR. IV PATENT AND INTACT. NO S/SX OF BLEEDING NOTED. LEFT ARM STILL SWELLING. HERNANDEZ DRAINING WELL BY GRAVITY. ALL SAFETY MAINTAINED. REPOSITIONED Q2H. WOUND TX WERE DONE ORDERED. WILL ENDORSE TO NEXT SHIFT NURSE FOR KRISTINA.
[2020-12-01 08:00] VITALS: BP 121/63
[2020-12-01 08:43] LABS: BASOPHILS % (AUTO) 0.4 % (0.0-2.0); EOSINOPHILS % (AUTO) 2.7 % (0.0-6.0); HEMATOCRIT 23 % (39-51); HEMOGLOBIN 7.8 g/dL (13.5-17.5); LYMPHOCYTES # (AUTO) 2.4 K/uL (0.8-4.8); MEAN CORPUSCULAR HGB CONC 34 g/dl (31.0-36.0); MEAN CORPUSCULAR VOLUME 89 fL (80-96); MONOCYTES # (AUTO) 0.7 K/uL (0.1-1.30); MONOCYTES % (AUTO) 9.3 % (2.0-12.0); NEUTROPHILS # (AUTO) 3.9 K/uL (1.8-8.9); NEUTROPHILS % (AUTO) 54.6 % (43.0-81.0); PLATELET COUNT (AUTO) 299 K/uL (150-450); RED BLOOD CELL COUNT(AUTO) 2.59 MIL/uL (4.5-6.0); WHITE BLOOD COUNT (AUTO) 7.2 K/uL (4.3-11.0)
[2020-12-01 08:49] LABS: CALCIUM, SERUM 7.1 mg/dL (8.5-10.1); PHOSPHORUS 2.3 mg/dL (2.5-4.9); POTASSIUM 3.5 mmol/L (3.5-5.1)
[2020-12-01] MEDS: PROSOURCE / PROSTAT (PYXIS) 30 ML UDC PO SCH ×3 (10:02→17:50)
[2020-12-01] MEDS: PANTOPRAZOLE 40 MG TABLET.DR PO SCH (10:02)
[2020-12-01] MEDS: METOPROLOL TARTRATE 25 MG TABLET PO SCH ×2 (10:02→20:58)
[2020-12-01] MEDS: AMIODARONE HCL 200 MG TABLET PO SCH (10:03)
[2020-12-01] MEDS: DAKINS QUARTER STRENGTH (0.125%) 480 ML BOTTLE TOP SCH (10:04)
[2020-12-01 12:00] VITALS: BP 113/63
[2020-12-01] MEDS ORDERED: Sodium Phosphate 15 MMOL in IV NS 0.9% 250 ML IV ONE (14:30)
[2020-12-01 16:00] VITALS: BP 120/36
--- NOTE | 2020-12-01 16:20 | NUR ---
RN Notes Started new Heparin with same dose rate of 1100U/HR based on current aPTT 68.1, next aPTT level to be drawn in AM. no s/sx of bleeding noted at this time, Patient stable with stable VS. Will continue to monitor.
[2020-12-01] MEDS: WARFARIN SODIUM 2 MG TABLET PO SCH (17:49)
[2020-12-01] MEDS: HEPARIN INFUSION/D5W 500 ML IV PRN (18:23)
--- NOTE | 2020-12-01 18:50 | NUR ---
RN Closing Notes Patient comfortably resting in bed, non-verbal but easily arousable and responsive to verbal and tactile stimuli. Patient's VS stable, no SOB on O2 @2lpm Via NC. No signs of pain and discomfort. Holt cath patent and intact draining ayaka urine and drainage bag below level of bladder. IV access on Subclavian x3 lumens intact and patent. Patient's LUE positive for DVT and is currently Heparin drip as ordered. No s/sx of bleeding noted, VS stable. Call light within reach, bed locked and in lowest position, bed alarm on.
--- NOTE | 2020-12-01 19:43 | NUR ---
RN NOTE PATIENT IN BED, AWAKE AND NON-VERBAL. ON O2 2L VIA NASAL CANNULA, NO ACUTE RESPIRATORY DISTRESS. PATIENT COMFORTABLE AT THIS TIME, NO SIGNS OF PAIN. IV ACCESS ON RIGHT SUBCLAVIAN TLC, PATENT AND RUNNING HEPARIN DRIP 1100 U/HR. NO SIGNS OF BLEEDING NOTED. BED LOCKED AND IN LOWEST POSITION. CALL LIGHT WITHIN REACH. ALL NEEDS ANTICIPATED.
[2020-12-01 20:00] VITALS: BP 121/61
[2020-12-02] VITALS: BP 123/59
[2020-12-02 04:00] VITALS: BP 120/95
[2020-12-02 06:10] LABS: BASOPHILS # (AUTO) 0.1 K/uL (0.0-0.2); BASOPHILS % (AUTO) 0.4 % (0.0-2.0); EOSINOPHILS % (AUTO) 0.6 % (0.0-6.0); HEMATOCRIT 24 % (39-51); LYMPHOCYTES # (AUTO) 2.2 K/uL (0.8-4.8); LYMPHOCYTES % (AUTO) 15.6 % (20.0-44.0); MEAN CORPUSCULAR HGB CONC 33 g/dl (31.0-36.0); MEAN CORPUSCULAR VOLUME 88 fL (80-96); MONOCYTES # (AUTO) 1.1 K/uL (0.1-1.30); MONOCYTES % (AUTO) 7.8 % (2.0-12.0); NEUTROPHILS # (AUTO) 10.6 K/uL (1.8-8.9); NEUTROPHILS % (AUTO) 75.6 % (43.0-81.0); PLATELET COUNT (AUTO) 304 K/uL (150-450); RED BLOOD CELL COUNT(AUTO) 2.76 MIL/uL (4.5-6.0)
[2020-12-02 06:32] LABS: CALCIUM, SERUM 7.2 mg/dL (8.5-10.1); MAGNESIUM 1.8 mg/dL (1.8-2.4); PHOSPHORUS 2.7 mg/dL (2.5-4.9); POTASSIUM 3.8 mmol/L (3.5-5.1)
--- NOTE | 2020-12-02 07:28 | NUR ---
RN NOTE PATIENT IN BED RESTING. REMAINS ON O2 2L VIA NASAL CANNULA, O2 SAT 99%. NO SIGNS OF DISCOMFORT. APPT 95.7, PER HEPARIN PROTOCOL, HOLD HEPARIN DRIP AND THEN DECREASE DRIP BY 3 UNITS/KG/H. NEXT PTT @ 1300. NO SIGNS OF BLEEDING. BED LOCKED AND IN LOWEST POSITION. CALL LIGHT WITHIN REACH. WILL ENDORSE TO AM SHIFT.
[2020-12-02 08:00] VITALS: BP 120/95
[2020-12-02] MEDS: PANTOPRAZOLE 40 MG TABLET.DR PO SCH (08:11)
[2020-12-02] MEDS: PROSOURCE / PROSTAT (PYXIS) 30 ML UDC PO SCH ×3 (08:12→17:00)
[2020-12-02] MEDS: DAKINS QUARTER STRENGTH (0.125%) 480 ML BOTTLE TOP SCH (08:12)
[2020-12-02] MEDS: METOPROLOL TARTRATE 25 MG TABLET PO SCH ×2 (08:12→20:53)
[2020-12-02] MEDS: AMIODARONE HCL 200 MG TABLET PO SCH (08:12)
[2020-12-02 12:00] VITALS: BP 104/60
[2020-12-02] MEDS ORDERED: LIDOCAINE 1%-EPI 1:100,000 20 ML VIAL TP ONE (12:00)
[2020-12-02] MEDS ORDERED: SILVER NITRATE APPLICATOR 1 EA BOX TP ONE (12:00)
[2020-12-02 16:00] VITALS: BP 104/60
[2020-12-02] MEDS: WARFARIN SODIUM 2 MG TABLET PO SCH (18:18)
--- NOTE | 2020-12-02 19:30 | NUR ---
RN OPENING NOTE REC'D REPORT FROM GOPAL VILLEGAS. REC'D PT IN BED, NON VERBAL, AWAKE. ON 2L OF O2 VIA NC. NO RESP DISTRESS NOTED. NO SOB NOTED. BREATHING EVEN AND UNLABORED. PT ON TELE MONITORING PRESENTS WITH NSR, LCW NOT PACING. PT WITH BBB, HEART RATE OF 71. BASELINE TO PT. PT HAS IV SITE, SUBCLAVIAN TLC, GOOD BLOOD RETURN NOTED. FLUSHED ASEPTICALLY. SAFETY MEASURES IN PLACE. APPLICABLE ISOLATION PRECAUTION IN PLACE. HOB ELEVATED. SIDE RAILS X2 BED LOCKED IN LOWEST POSITION. WITH BED ALARM ON. CALL LIGHT WITHIN REACH. NO S/S OF PAIN. ALL NEEDS ATTENDED AT THIS TIME. WILL CONT TO MONITOR. Addendum: 12/02/20 at 2042 by LAURA ECHEVERRIA RN PT WITH HERNANDEZ CATH, DRAINING TO GRAVITY, THAIS
[2020-12-02 20:00] VITALS: BP 96/64
[2020-12-03] VITALS: BP 114/53
[2020-12-03] MEDS: ACETAMINOPHEN 325 MG TABLET PO PRN ×2 (00:56→20:27)
--- NOTE | 2020-12-03 01:00 | NUR ---
RN NOTE PT GIVEN TYLENOL FOR 100.3 TEMP COOLING MEASURES IN PLACE. WILL CONT TO MONITOR.
[2020-12-03 04:00] VITALS: BP 124/71
--- NOTE | 2020-12-03 07:29 | NUR ---
RN CLOSING NOTE NO CHANGE IN PT CONDITION,ORAL CARE, BED BATH DONE. X1 BM NOTED. WOUND TX ORDERED. TEMP LAST IS 98.0. PT IS STABLE AT THIS TIME. SAFETY MEASURES IN PLACE. HOB ELEVATED. SIDE RAILS X2 BED LOCKED IN LOWEST POSITION. WITH BED ALARM ON. CALL LIGHT WITHIN REACH. NO S/S OF PAIN. ALL NEEDS ATTENDED AT THIS TIME. WILL ENDORSE TO DAY SHIFT FOR CONT OF CARE
--- NOTE | 2020-12-03 07:30 | NUR ---
RN Opening Note Received patient in bed, non-verbal, awake, on 2L of O2 via NC. No respiratory distress, or SOB noted at this time. No s/sx of pain noted. Pt has a subclavian triple lumen with blood return, and flushed using aseptic technique. Safety measures in place, observing isolation precautions. HOB elevated, side rails up x2 with bed locked in lowest position, bed alarm on, and call light within reach. All needs attended.
[2020-12-03 08:00] VITALS: BP 116/56
[2020-12-03] MEDS: METOPROLOL TARTRATE 25 MG TABLET PO SCH ×2 (08:55→20:28)
[2020-12-03] MEDS: AMIODARONE HCL 200 MG TABLET PO SCH (08:56)
[2020-12-03] MEDS: PANTOPRAZOLE 40 MG TABLET.DR PO SCH (08:59)
[2020-12-03] MEDS: DAKINS QUARTER STRENGTH (0.125%) 480 ML BOTTLE TOP SCH (09:03)
[2020-12-03] MEDS: PROSOURCE / PROSTAT (PYXIS) 30 ML UDC PO SCH ×3 (09:03→17:00)
--- NOTE | 2020-12-03 12:00 | NUR ---
MS RN NOTE ROUND MADE ,ALL NEEDS ATTENDEE FED PATIENT, NOT IN DISTRES
[2020-12-03 16:00] VITALS: BP 133/62
--- NOTE | 2020-12-03 16:00 | NUR ---
MS RN NOTE SACRAL DEBRIDEMENT SONE BY WOUND NURSE
[2020-12-03] MEDS: WARFARIN SODIUM 2 MG TABLET PO SCH (17:02)
--- NOTE | 2020-12-03 18:32 | NUR ---
ms ash note all needs attended ,fed by gail, able t0 make bm , keep clean dry, turn reposition , call light within reach m will Addendum: 12/03/20 at 1833 by WALTER MCKEON RN will monitor
--- NOTE | 2020-12-03 19:45 | NUR ---
RN NOTE RECEIVED PT AWAKE, NON VERBAL. NOT IN ANY DISTRESS. ON O2 VIA NC AT 2L AT 99% O2 SAT. WITH TRIPLE LUMEN CATH ON R. SUBCLAVIAN INTACT AND PATENT. FLUSHES WELL. HERNANDEZ IN PLACE. WILL CONTINUE TO MONITOR. ALL SAFETY MEASURES IN PLACE PER PROTOCOL.
[2020-12-03 20:00] VITALS: BP 108/61
[2020-12-04 04:00] VITALS: BP 105/62
[2020-12-04 06:35] LABS: BASOPHILS % (AUTO) 0.5 % (0.0-2.0); EOSINOPHILS % (AUTO) 1.3 % (0.0-6.0); HEMATOCRIT 23 % (39-51); HEMOGLOBIN 7.7 g/dL (13.5-17.5); LYMPHOCYTES # (AUTO) 2.2 K/uL (0.8-4.8); LYMPHOCYTES % (AUTO) 26.2 % (20.0-44.0); MEAN CORPUSCULAR HGB CONC 34 g/dl (31.0-36.0); MEAN CORPUSCULAR VOLUME 88 fL (80-96); MONOCYTES # (AUTO) 0.7 K/uL (0.1-1.30); MONOCYTES % (AUTO) 8.3 % (2.0-12.0); NEUTROPHILS # (AUTO) 5.5 K/uL (1.8-8.9); NEUTROPHILS % (AUTO) 63.7 % (43.0-81.0); PLATELET COUNT (AUTO) 252 K/uL (150-450); WHITE BLOOD COUNT (AUTO) 8.6 K/uL (4.3-11.0)
--- NOTE | 2020-12-04 06:56 | NUR ---
RN NOTE PT TOLERATES O2 AT 2L. NO DISTRESS NOTED. BREATHING EVEN AND UNLABORED. ON FREQUENT VISUAL CHECKS. WOUND TX WERE DONE ORDERED. HERNANDEZ DRAINING WELL. ALL SAFETY MEASURES MAINTAINED. WILL ENDORSE TO NEXT SHIFT NURSE FOR KRISTINA.
[2020-12-04 07:05] LABS: CALCIUM, SERUM 7.2 mg/dL (8.5-10.1); POTASSIUM 3.5 mmol/L (3.5-5.1)
--- NOTE | 2020-12-04 07:20 | NUR ---
RN OPENING NOTES RECEIVED PT IN BED, NON VERBAL. ON O2 2L VIA NC, O2 SAT @98%. NO SOB OR ANY S/S OF DISTRESS NOTED. WITH TRIPLE LUMEN CATH ON R. SUBCLAVIAN INTACT AND PATENT AND FLUSHED. HERNANDEZ CATH IN PLACE. SAFETY MEASURES IN PLACE. CALL LIGHT WITHIN REACH. BED LOCKED AND IN LOWEST POSITION WITH SIDE RAILS UP X3. BED ALARM ON. WILL CONTINUE TO MONITOR.
[2020-12-04] MEDS: PANTOPRAZOLE 40 MG TABLET.DR PO SCH (08:26)
[2020-12-04] MEDS: AMIODARONE HCL 200 MG TABLET PO SCH (08:26)
[2020-12-04] MEDS: METOPROLOL TARTRATE 25 MG TABLET PO SCH (08:26)
[2020-12-04] MEDS: DAKINS QUARTER STRENGTH (0.125%) 480 ML BOTTLE TOP SCH (08:32)
[2020-12-04] MEDS: PROSOURCE / PROSTAT (PYXIS) 30 ML UDC PO SCH ×2 (08:32→13:02)
[2020-12-04 09:46] VITALS: BP 122/65
[2020-12-04 12:00] VITALS: BP 114/57
[2020-12-04 16:00] VITALS: BP 115/60
--- NOTE | 2020-12-04 16:00 | NUR ---
RN CLOSING NOTES DISCHARGED PT TO [facility] ACCOMPANIED BY AMBULANCE CREW IN STABLE CONDITION. FAMILY MADE AWARE OF TRANSFER. PNEUMONIA VACCINE IS UP TO DATE BUT REFUSED FLU AND COVID VACCINES AT THIS TIME. EDUCATION PROVIDED. PICTURE TAKEN FOR SACRAL WOUND AND LEFT FOOT, PLACED IN CHART. NO BELONGINGS. NO PAIN REPORTED AT THIS TIME. REPORT GIVEN TO HEATHER HERRON.
[2020-12-04] MEDS ORDERED: WARFARIN SODIUM 2 MG TABLET PO SCH (17:00)
== END 2020-12-04 17:51 | DRG 853 ==
LOC: ER 20:15 → ICU 22:29 → TELE1 11-27 17:18 → TELE-TD 11-29 14:00 → TELE1 11-30 17:06 → MEDSG1 12-03 09:27
PROVIDERS: ADMIT Student in an Organized Health Care Education/Training Program; ATTEND Legal Medicine
PROC: 30233N1 Transfusion of Nonautologous Red Blood Cells into Peripheral Vein, Percutaneous Approach (ICD-10-PCS; principal; 2020-11-22)
PROC: 02HV33Z Insertion of Infusion Device into Superior Vena Cava, Percutaneous Approach (ICD-10-PCS; 2020-11-23)
PROC: B548ZZA Ultrasonography of Superior Vena Cava, Guidance (ICD-10-PCS; 2020-11-23)
PROC: 0KBP0ZZ Excision of Left Hip Muscle, Open Approach (ICD-10-PCS; 2020-11-26)
PROC: 0KBN0ZZ Excision of Right Hip Muscle, Open Approach (ICD-10-PCS; 2020-11-26)
PROC: 0KBP0ZZ Excision of Left Hip Muscle, Open Approach (ICD-10-PCS; 2020-12-03)
PROC: 0KBN0ZZ Excision of Right Hip Muscle, Open Approach (ICD-10-PCS; 2020-12-03)
DX: A41.9 Sepsis, unspecified organism (principal); R65.21 Severe sepsis with septic shock; N17.0 Acute kidney failure with tubular necrosis; G93.41 Metabolic encephalopathy; E43 Unspecified severe protein-calorie malnutrition; L89.154 Pressure ulcer of sacral region, stage 4; K92.2 Gastrointestinal hemorrhage, unspecified; D68.59 Other primary thrombophilia; I42.9 Cardiomyopathy, unspecified; I50.22 Chronic systolic (congestive) heart failure; I47.2 Ventricular tachycardia; I82.622 Acute embolism and thrombosis of deep veins of left upper extremity; D50.0 Iron deficiency anemia secondary to blood loss (chronic); F32.9 Major depressive disorder, single episode, unspecified; E78.5 Hyperlipidemia, unspecified; E83.39 Other disorders of phosphorus metabolism; E87.5 Hyperkalemia; G30.9 Alzheimer's disease, unspecified; F02.80 Dementia in other diseases classified elsewhere, unspecified severity, without behavioral disturbance, psychotic disturbance, mood disturbance, and anxiety; I25.10 Atherosclerotic heart disease of native coronary artery without angina pectoris; I48.91 Unspecified atrial fibrillation; M20.41 Other hammer toe(s) (acquired), right foot; M20.42 Other hammer toe(s) (acquired), left foot; N40.0 Benign prostatic hyperplasia without lower urinary tract symptoms; Z86.73 Personal history of transient ischemic attack (TIA), and cerebral infarction without residual deficits; Z95.2 Presence of prosthetic heart valve; Z95.1 Presence of aortocoronary bypass graft; Z95.810 Presence of automatic (implantable) cardiac defibrillator; Z74.01 Bed confinement status; E87.6 Hypokalemia; E86.1 Hypovolemia; Z74.09 Other reduced mobility; E88.09 Other disorders of plasma-protein metabolism, not elsewhere classified; Z68.21 Body mass index [BMI] 21.0-21.9, adult; L89.896 Pressure-induced deep tissue damage of other site; I11.0 Hypertensive heart disease with heart failure; F41.9 Anxiety disorder, unspecified; K21.9 Gastro-esophageal reflux disease without esophagitis; Z79.01 Long term (current) use of anticoagulants; Z20.822 Contact with and (suspected) exposure to COVID-19
CPT/HCPCS: 36415; 71045-TC; 80048-TC; 80053-TC; 80061-TC; 80076-TC; 81001; 82570-TC; 82728-TC; 82962-TC; 83540-TC; 83605-TC; 83690-TC; 83735-TC; 84100-TC; 84443-TC; 84484-TC; 85025-TC; 85610-TC; 85730-TC; 86850-TC; 87040-TC; 87081-TC; 92526; 92611-TC; 93971-TC; A6253; A6403; A9563; C9113; C9132; G0378; J0282; J1160; J1644; J1815; J2370; J2543; J3430; J3480; J3490; J7040; J7050; J7060; P9016